=== PATIENT | female | born 1940 | race Caucasian/White ===

== ENCOUNTER → 2017-01-17 | Outpatient (CLI) | payer MEDICARE | END | disposition home or self-care (01) | LOC: LABWHC1 11:07 | PROVIDERS: ATTEND Nurse Practitioner Family | DX: I10 Essential (primary) hypertension (principal); Z86.718 Personal history of other venous thrombosis and embolism | CPT/HCPCS: 36415; 93005 ==

== ENCOUNTER → 2017-02-01 | Outpatient (CLI) | payer MEDICARE ==
--- NOTE | 2017-02-01 11:43 | US ---
EXAMINATION TYPE: US abdomen complete DATE OF EXAM: 02/01/2017 11:24 AM COMPARISON: NONE CLINICAL HISTORY: R63.0 DECREASED APPETITE, R11.11 VOMITING, R63.4 WEIGHT LOSS. GB removed years ago EXAM MEASUREMENTS: Liver Length: 15.2 cm Gallbladder Wall: Surgically absent cm CBD: 0.7 cm Spleen: 8.5 cm Right Kidney: 10.6 x 4.7 x 4.4 cm Left Kidney: 10.2 x 5.0 x 4.5 cm cm TECHNOLOGIST IMPRESSION: Pancreas: Partially Obscured by bowel gas Liver: Partially Obscured by overlying bowel gas. Visualized portions wnl Gallbladder: Surgically absent Evidence for sonographic Jameson's sign: no CBD: wnl Spleen: wnl Right Kidney: wnl Left Kidney: Tiny cyst lower pole =0.9 x 0.6 x 0.7 cm Upper IVC: wnl Abd Aorta: wnl, proximal portion partially obscured by bowel gas. The visualized liver is homogenous. The intrahepatic portion of the IVC and visualized abdominal aor ta are within normal limits. Gallbladder surgically absent. Common bile duct is unremarkable. The v isualized portions of the pancreas are homogenous. Portions of pancreas and liver are obscured by sh adowing from bowel gas and ribs. The spleen is unremarkable. Kidneys are symmetric and free of hydro nephrosis. No suspicious renal lesions are seen. There is 9 mm round anechoic lesion lower pole leve l right kidney felt to reflect simple cyst. IMPRESSION: No suspicious finding is seen to account for patient's symptoms.
== END | disposition home or self-care (01) ==
LOC: RADUSWWP 10:50
PROVIDERS: ATTEND Family Medicine
DX: R11.11 Vomiting without nausea (principal); R63.0 Anorexia; R63.4 Abnormal weight loss
CPT/HCPCS: 76700

== ENCOUNTER → 2017-02-07 | Outpatient (CLI) | payer MEDICARE ==
--- NOTE | 2017-02-07 09:43 | CT ---
EXAMINATION TYPE: CT brain wo con DATE OF EXAM: 02/07/2017 8:56 AM COMPARISON: NONE HISTORY: Weakness and confusion CT DLP: 1017.9 mGycm Automated exposure control for dose reduction was used. FINDINGS: Opacity is present within the left maxillary sinus, there may be mucus retention cyst. The orbits benjamin w symmetric appearance. Cortical atrophy is present within the brain. There is low attenuation involv ing the left greater than right frontal lobe with local mass effect on the frontal horn of the left l ateral ventricle on the left greater than right. No evident hemorrhage or hydrocephalus. Small soft t issue density incidentally noted anterior to the cathi on the left measuring approximately 1 cm steril e based and may represent a small meningioma. IMPRESSION: Findings suggestive of underlying brain tumor, possible glioma or metastatic disease, there is likely a small meningioma as described additionally. Recommend brain MRI with and without contrast, report relayed to Mayte telephonically at the time of interpretation at the [facility]
--- NOTE | 2017-02-07 11:03 | US ---
EXAMINATION TYPE: US venous doppler duplex LE BI DATE OF EXAM: 02/07/2017 9:19 AM COMPARISON: 09/29/2016 CLINICAL HISTORY: R53.1 generalized weakness/R41.0 confusion. history of DVT left pop, prior on PACS SIDE PERFORMED: Bilateral VESSELS IMAGED: External Iliac Vein (EIV) Common Femoral Vein Deep Femoral Vein Greater Saphenous Vein * Femoral Vein Popliteal Vein Proximal Calf Veins (* superficial vessels) Right Leg: Negative for DVT Left Leg: Positive for DVT, left pop through proximal calf veins, patient is on Xeralto from prior D VT. IMPRESSION: 1. Findings positive for left lower extremity DVT as discussed above. There is been resolution of the thrombus within the distal left femoral vein. 2. No evidence for a right lower extremity DVT.
== END ==
LOC: RADCTMAIN 08:25
PROVIDERS: ATTEND Family Medicine
DX: R41.0 Disorientation, unspecified (principal); I82.402 Acute embolism and thrombosis of unspecified deep veins of left lower extremity
CPT/HCPCS: 70450; 93970

== ENCOUNTER 2017-05-13 06:50 | Emergency (ER) | payer MEDICARE ==
[2017-05-13] MEDS ORDERED: DIPH,PERTUS(ACELL)TETVAC-LF 0.5 ML VIAL IM ONE (07:16)
[2017-05-13] MEDS ORDERED: SODIUM CHLORIDE 0.9% 500 ML IV STA (07:17)
[2017-05-13] MEDS ORDERED: LIDOCAINE/EPINEPHR/TETRACAINE 5 ML BOTTLE TOPICAL ONE ×2 (07:18→07:28)
--- NOTE | 2017-05-13 07:20 | ED ---
General Adult HPI - General Chief complaint: Head Injury Stated complaint: fall, head lac Time Seen by Provider: 05/13/17 07:00 Source: patient, family, RN notes reviewed Mode of arrival: wheelchair Limitations: no limitations - History of Present Illness Initial comments: This is a 77-year-old female who presents emergency Department with a past medical history significant for a brain tumor. Patient had surgery to have 90% removed and then she was receiving chemotherapy and radiation. Patient states her last treatment was on . Patient has been weak since then. Patient states this morning shortly go to the bathroom when specified when she was walking out of the bathroom her legs got weak and she fell over and struck her head. Patient is on a maxilla. Patient states she has lacerations back and her head. Patient denies any loss of consciousness or being days. Patient denies any neck pain. Patient denies any numbness weakness. Patient states she did not feel lightheaded or dizzy prior to the fall. Patient denies any palpitations chest pain or difficulty breathing. Patient denies abdominal pain patient denies nausea vomiting or diarrhea. Patient does not want her last emesis. At this point patient has no headache and no other complaints. - Related Data Home Medications Medication Instructions Recorded Confirmed Levothyroxine Sodium [Synthroid] 100 mcg PO DAILY 09/29/16 05/13/17 Omeprazole 20 mg PO DAILY 09/29/16 05/13/17 amLODIPine BESYLATE [Norvasc] 5 mg PO DAILY 09/29/16 05/13/17 Dabigatran [Pradaxa] 150 mg PO BID 05/13/17 05/13/17 Previous Rx's Medication Instructions Recorded Cephalexin [Keflex] 500 mg PO Q6HR #28 cap 05/13/17 Allergies Allergy/AdvReac Type Severity Reaction Status Date / Time No Known Allergies Allergy Verified 09/29/16 14:56 Review of Systems ROS Statement: Those systems with pertinent positive or pertinent negative responses have been documented in the HPI. ROS Other: All systems not noted in ROS Statement are negative. Past Medical History Past Medical History: Hypertension, Thyroid Disorder History of Any Multi-Drug Resistant Organisms: None Reported Past Surgical History: Cholecystectomy Additional Past Surgical History / Comment(s): thyroid removed, left ankle Past Psychological History: No Psychological Hx Reported Smoking Status: Never smoker Past Alcohol Use History: None Reported Past Drug Use History: None Reported General Exam - General Exam Comments Initial Comments: GENERAL: Patient is well-developed and well-nourished. Patient is nontoxic and well- hydrated and is in no acute distress. ENT: Neck is soft and supple. No significant lymphadenopathy is noted. Oropharynx is clear. Moist mucous membranes. Neck has full range of motion without eliciting any pain. EYES: The sclera were anicteric and conjunctiva were pink and moist. Extraocular movements were intact and pupils were equal round and reactive to light. Eyelids were unremarkable. PULMONARY: Unlabored respirations. Good breath sounds bilaterally. No audible rales rhonchi or wheezing was noted. CARDIOVASCULAR: There is a regular rate and rhythm without any murmurs gallops or rubs. ABDOMEN: Soft and nontender with normal bowel sounds. No palpable organomegaly was noted. There is no palpable pulsatile mass. SKIN: There is a 2.5 cm laceration to the left occipital region of the patient's scalp NEUROLOGIC: Patient is alert and oriented x3. Cranial nerves II through XII are grossly intact. Motor and sensory are also intact. Normal speech, volume and content. Symmetrical smile. MUSCULOSKELETAL: Normal extremities with adequate strength and full range of motion. No lower extremity swelling or edema. No calf tenderness. LYMPHATICS: No significant lymphadenopathy is noted PSYCHIATRIC: Normal psychiatric evaluation. Normal interpersonal interactions appears functionally intact in deals appropriately with others. No signs of depression. No signs of anxiety. Limitations: no limitations Course Vital Signs 05/13/17 05/13/17 06:55 08:00 Temperature 97.1 F L Pulse Rate 82 68 Respiratory 20 18 Rate Blood Pressure 137/75 139/65 O2 Sat by Pulse 93 L 97 Oximetry Procedures - Laceration Laceration #1 Consent Obtained: verbal consent Time Out Performed: Yes Indication: laceration Site: scalp Description: linear Depth: simple, single layer Type of Sutures: other ([place]) Size of Sutures: other (3) Technique: simple, interrupted Complications: pain Patient Tolerated Procedure: well Medical Decision Making - Medical Decision Making EKG shows normal sinus rhythm at 83 bpm WV interval is 126 QRS is 86 QT interval 342 QTC is 411. Patient's EKG shows no ST segment elevation or depression or T-wave abdomen is noted. - Lab Data Result diagrams: 05/13/17 07:31 05/13/17 07:31 Lab Results 05/13/17 05/13/17 05/13/17 Range/Units 07:31 07:31 07:31 WBC 11.1 H (3.8-10.6) k/uL RBC 4.49 (3.80-5.40) m/uL Hgb 14.3 (11.4-16.0) gm/dL Hct 42.5 (34.0-46.0) % MCV 94.6 (80.0-100.0) fL MCH 31.9 (25.0-35.0) pg MCHC 33.7 (31.0-37.0) g/dL RDW 18.6 H (11.5-15.5) % Plt Count 212 (150-450) k/uL Neutrophils % 80 % Lymphocytes % 11 % Monocytes % 7 % Eosinophils % 0 % Basophils % 0 % Neutrophils # 8.9 H (1.3-7.7) k/uL Lymphocytes # 1.2 (1.0-4.8) k/uL Monocytes # 0.8 (0-1.0) k/uL Eosinophils # 0.0 (0-0.7) k/uL Basophils # 0.1 (0-0.2) k/uL Anisocytosis Slight Macrocytosis Slight PT (9.0-12.0) sec INR (<1.1) APTT (22.0-30.0) sec Sodium 136 L (137-145) mmol/L Potassium 4.4 (3.5-5.1) mmol/L Chloride 107 (98-107) mmol/L Carbon Dioxide 21 L (22-30) mmol/L Anion Gap 8 mmol/L BUN 33 H (7-17) mg/dL Creatinine 0.78 (0.52-1.04) mg/dL Est GFR (MDRD) Af Amer >60 (>60 ml/min/1.73 sqM) Est GFR (MDRD) Non-Af >60 (>60 ml/min/1.73 sqM) Glucose 92 (74-99) mg/dL Calcium 9.8 (8.4-10.2) mg/dL Total Bilirubin 0.6 (0.2-1.3) mg/dL AST 23 (14-36) U/L ALT 50 (9-52) U/L Alkaline Phosphatase 49 (38-126) U/L Total Creatine Kinase <20 L (30-135) U/L CK-MB (CK-2) 1.3 (0.0-2.4) ng/mL CK-MB (CK-2) Rel Index 0.0 Troponin I <0.012 (0.000-0.034) ng/mL Total Protein 5.8 L (6.3-8.2) g/dL Albumin 3.4 L (3.5-5.0) g/dL Urine Color Urine Appearance (Clear) Urine pH (5.0-8.0) Ur Specific [place] (1.001-1.035) Urine Protein (Negative) Urine Glucose (UA) (Negative) Urine Ketones (Negative) Urine Blood (Negative) Urine Nitrite (Negative) Urine Bilirubin (Negative) Urine Urobilinogen (<2.0) mg/dL Ur Leukocyte Esterase (Negative) 05/13/17 05/13/17 Range/Units 07:31 08:29 WBC (3.8-10.6) k/uL RBC (3.80-5.40) m/uL Hgb (11.4-16.0) gm/dL Hct (34.0-46.0) % MCV (80.0-100.0) fL MCH (25.0-35.0) pg MCHC (31.0-37.0) g/dL RDW (11.5-15.5) % Plt Count (150-450) k/uL Neutrophils % % Lymphocytes % % Monocytes % % Eosinophils % % Basophils % % Neutrophils # (1.3-7.7) k/uL Lymphocytes # (1.0-4.8) k/uL Monocytes # (0-1.0) k/uL Eosinophils # (0-0.7) k/uL Basophils # (0-0.2) k/uL Anisocytosis Macrocytosis PT 11.2 (9.0-12.0) sec INR 1.1 (<1.1) APTT 26.2 (22.0-30.0) sec Sodium (137-145) mmol/L Potassium (3.5-5.1) mmol/L Chloride (98-107) mmol/L Carbon Dioxide (22-30) mmol/L Anion Gap mmol/L BUN (7-17) mg/dL Creatinine (0.52-1.04) mg/dL Est GFR (MDRD) Af Amer (>60 ml/min/1.73 sqM) Est GFR (MDRD) Non-Af (>60 ml/min/1.73 sqM) Glucose (74-99) mg/dL Calcium (8.4-10.2) mg/dL Total Bilirubin (0.2-1.3) mg/dL AST (14-36) U/L ALT (9-52) U/L Alkaline Phosphatase (38-126) U/L Total Creatine Kinase (30-135) U/L CK-MB (CK-2) (0.0-2.4) ng/mL CK-MB (CK-2) Rel Index Troponin I (0.000-0.034) ng/mL Total Protein (6.3-8.2) g/dL Albumin (3.5-5.0) g/dL Urine Color Yellow Urine Appearance Clear (Clear) Urine pH 6.5 (5.0-8.0) Ur Specific [place] 1.021 (1.001-1.035) Urine Protein Negative (Negative) Urine Glucose (UA) Negative (Negative) Urine Ketones Negative (Negative) Urine Blood Negative (Negative) Urine Nitrite Negative (Negative) Urine Bilirubin Negative (Negative) Urine Urobilinogen <2.0 (<2.0) mg/dL Ur Leukocyte Esterase Negative (Negative) Disposition Clinical Impression: Generalized weakness, Head injury, Scalp laceration Disposition: HOME SELF-CARE Instructions: Head Injury (ED) Additional Instructions: Staple should be removed after 7 days. Patient to return if there is a headache any numbness or weakness or altered mental status. Prescriptions: Cephalexin [Keflex] 500 mg PO Q6HR #28 cap Referrals: Terri Bangura MD [Primary Care Provider] - 1-2 days Time of Disposition: 08:48
[2017-05-13 07:45] LABS: Anisocytosis Slight; Basophils # (A) 0.1 k/uL (0-0.2); Basophils % (A) 0 %; CH 32.3; CHCM 34.1; Eosinophils % (A) 0 %; HCT 42.5 % (34.0-46.0); HDW 2.49; HGB 14.3 gm/dL (11.4-16.0); Luc # (Auto) 0.16; Luc % (Auto) 1; Lymphocytes # (A) 1.2 k/uL (1.0-4.8); Lymphocytes % (A) 11 %; MCH 31.9 pg (25.0-35.0); MCHC 33.7 g/dL (31.0-37.0); MCV 94.6 fL (80.0-100.0); Macrocytosis Slight; Mean Platelet Volume 7.2; Monocytes # (A) 0.8 k/uL (0-1.0); Monocytes % (A) 7 %; Neutrophils # (A) 8.9 k/uL (1.3-7.7); Neutrophils % (A) 80 %; RBC 4.49 m/uL (3.80-5.40); RDW 18.6 % (11.5-15.5); WBC 11.1 k/uL (3.8-10.6); WBC (Perox) 10.95
[2017-05-13 07:55] LABS: INR 1.1 (<1.1); Partial Thromboplastin Time 26.2 sec (22.0-30.0); Prothrombin Time 11.2 sec (9.0-12.0)
[2017-05-13 08:08] LABS: ALT 50 U/L (9-52); AST 23 U/L (14-36); Alkaline Phosphatase 49 U/L (38-126); Anion Gap 8 mmol/L; Blood Urea Nitrogen 33 mg/dL (7-17); Calcium 9.8 mg/dL (8.4-10.2); Carbon Dioxide 21 mmol/L (22-30); Chloride 107 mmol/L (98-107); Glucose 92 mg/dL (74-99); Non-African American GFR(MDRD) >60 (>60 ml/min/1.73 sqM); Potassium 4.4 mmol/L (3.5-5.1); Sodium 136 mmol/L (137-145); Total Bilirubin 0.6 mg/dL (0.2-1.3); Total Protein 5.8 g/dL (6.3-8.2)
[2017-05-13 08:14] VITALS: RESP 18
[2017-05-13 08:14] LABS: Creatine Kinase <20 U/L (30-135)
[2017-05-13 08:26] LABS: Creatine Kinase MB 1.3 ng/mL (0.0-2.4); Troponin I <0.012 ng/mL (0.000-0.034)
--- NOTE | 2017-05-13 08:33 | CT ---
EXAMINATION TYPE: CT brain christopherine wo con DATE OF EXAM: 05/13/2017 COMPARISON: 02/07/2017 HISTORY: Fall CT DLP: Head (995.5) amd C-spine (549.10) mGycm, Automated exposure control for dose reduction was us ed. CONTRAST: Patient injected with 0 mL of Omnipaque 300. CT of the brain is performed utilizing 3 mm thick sections through the posterior fossa and 3 mm thick sections through the remaining calvarium. Study is performed within 24 hours of arrival to the hospital. No abnormal hyperdensity is present to suggest an acute intracranial hemorrhage. No mass lesion is evident. No acute infarcts are evident. Periventricular white matter hypodensity is present. Findings can be compatible with microvascular ischemic change. Ventricles and sulci are appropriate for the patient age. There is communication with some encephalo malacia in the superior left lateral ventricle. This has progressed from the comparison of 02/07/2017. Prior craniotomy is along the left frontal parietal vertex. Paranasal sinuses and mastoid air cells within the [id number] are clear. IMPRESSIONS: 1. Postsurgical changes. 2. Progressive encephalomalacia from January 2017 left frontal vertex. 3. No acute intracranial process 4. Chronic microvascular ischemic type changes. CT cervical spine. COMPARISON: None CT of the cervical spine is performed in the axial plane at 2 mm thick sections. Reconstructed image s in the coronal, and sagittal plane are reviewed on the computer. No acute fractures are evident. Vertebral body alignment is normal. C6-7 degenerative disc changes are present. Some posterior endplate spurring is present. Vertebral body heights are preserved. No spinal canal stenosis is evident. Facet degenerative changes are within the lower cervical spine. IMPRESSIONS: 1. Degenerative changes cervical spine. No acute osseous abnormality evident.
[2017-05-13 08:41] LABS: Appearance,Urine Clear (Clear); Bilirubin,Urine Negative (Negative); Glucose,Urine (UA) Negative (Negative); Ketones,Urine Negative (Negative); Leukocyte Esterase,Urine Negative (Negative); Nitrite,Urine Negative (Negative); PH, Urine 6.5 (5.0-8.0); Protein,Urine Negative (Negative); Specific Gravity,Urine 1.021 (1.001-1.035); UA Billing (MACRO vs. MICRO) CHEM; Urobilinogen,Urine <2.0 mg/dL (<2.0)
[2017-05-13 08:54] VITALS: BP 127/88; PULSE 71; TEMP 97.8
== END 2017-05-13 08:58 | disposition home or self-care (01) ==
LOC: EC 06:50
DX: S01.01XA Laceration without foreign body of scalp, initial encounter (principal); S21.219A Laceration without foreign body of unspecified back wall of thorax without penetration into thoracic cavity, initial encounter; D49.6 Neoplasm of unspecified behavior of brain; R53.1 Weakness; I10 Essential (primary) hypertension; E07.9 Disorder of thyroid, unspecified; Z79.01 Long term (current) use of anticoagulants; Z79.899 Other long term (current) drug therapy; Z23 Encounter for immunization; Z98.890 Other specified postprocedural states; W17.89XA Other fall from one level to another, initial encounter; Y92.002 Bathroom of unspecified non-institutional (private) residence as the place of occurrence of the external cause; Y93.01 Activity, walking, marching and hiking
CPT/HCPCS: 12001; 36415; 70450; 72125; 80053; 81003; 82550; 82553; 84484; 85025; 85610; 85730; 90471; 90715; 93005; 96360; 99284

== ENCOUNTER 2017-07-02 21:26 | Inpatient (IN) | payer MEDICARE ==
[2017-07-02] MEDS ORDERED: HYDROcodone/APAP 5-325MG 1 EACH TAB PO STA (22:32)
--- NOTE | 2017-07-02 22:39 | ED ---
General Adult HPI - General Source: patient, family, RN notes reviewed Mode of arrival: ambulatory Limitations: no limitations <Panchito Ruth - Last Filed: 07/03/17 01:19> <Korey Mcqueen - Last Filed: 07/03/17 07:04> - General Chief complaint: Fall Stated complaint: Fall/Elbow/Shoulder Pain Time Seen by Provider: 07/02/17 22:13 - History of Present Illness Initial comments: Patient 77-year-old female who presents emergency room today with a chief complaint of a fall that occurred approximately an hour and a half ago. She does admit that she was using her walker headed towards the table when she believes she chipped over the carpet. Patient does admit that she went down onto the right side. Does admit to some pain locally to the right shoulder which is somewhat chronic but also has increased pain in the right elbow. She states that she does have also some mild pain to the right hip area. She states she felt this when she stood up. She denies any head injury or loss consciousness. She denies any other complaints or associated symptoms at this time. Denies any lightheadedness or dizziness. Patient denies any recent fever , chills, shortness of breath, chest pain, back pain, abdominal pain, nausea or vomiting, numbness or tingling, dysuria or hematuria, constipation or diarrhea, headaches or visual changes, or any other complaints. (Panchito Ruth) - Related Data Home Medications Medication Instructions Recorded Confirmed Omeprazole 20 mg PO DAILY@0730 09/29/16 07/02/17 Dabigatran [Pradaxa] 150 mg PO BID@07,199905/13/17 07/02/17 Citalopram Hydrobromide [CeleXA] 20 mg PO DAILY@1400 07/02/17 07/02/17 HYDROcodone/APAP 5-325MG [[place] 1 tab PO Q6H PRN 07/02/17 07/02/17 5-325] Levothyroxine Sodium [Synthroid] 100 mcg PO DAILY@0630 07/02/17 07/02/17 Oxybutynin Chloride 5 mg PO HS@199907/02/17 07/02/17 Allergies Allergy/AdvReac Type Severity Reaction Status Date / Time No Known Allergies Allergy Verified 07/03/17 02:52 Review of Systems ROS Other: All systems not noted in ROS Statement are negative. <Panchito Ruth - Last Filed: 07/03/17 01:19> ROS Other: All systems not noted in ROS Statement are negative. <Korey Mcqueen Sara - Last Filed: 07/03/17 07:04> ROS Statement: Those systems with pertinent positive or pertinent negative responses have been documented in the HPI. Past Medical History Past Medical History: Hypertension, Thyroid Disorder Additional Past Medical History / Comment(s): Brain CA History of Any Multi-Drug Resistant Organisms: None Reported Past Surgical History: Cholecystectomy Additional Past Surgical History / Comment(s): thyroid removed, left ankle, craniotomy Past Psychological History: No Psychological Hx Reported Smoking Status: Never smoker Past Alcohol Use History: None Reported Past Drug Use History: None Reported <Panchito Ruth - Last Filed: 07/03/17 01:19> General Exam Limitations: no limitations <Panchito Ruth - Last Filed: 07/03/17 01:19> <Korey Mcqueen Sara - Last Filed: 07/03/17 07:04> - General Exam Comments Initial Comments: General: The patient is awake and alert, in no distress, and does not appear acutely ill. Eye: Pupils are equal, round and reactive to light, extra-ocular movements are intact. No nystagmus. There is normal conjunctiva bilaterally. No signs of icterus. Ears, nose, mouth and throat: There are moist mucous membranes and no oral lesions. Neck: The neck is supple, there is no tenderness or JVD. Cardiovascular: There is a regular rate and rhythm. No murmur, rub or gallop is appreciated. Respiratory: Lungs are clear to auscultation, respirations are non-labored, breath sounds are equal. No wheezes, stridor, rales, or rhonchi. Gastrointestinal: Soft, non-distended, non-tender abdomen without masses or organomegaly noted. There is no rebound or guarding present. No CVA tenderness. Bowel sounds are unremarkable. Musculoskeletal: Patient does have tenderness to the posterior and anterior aspects of the right shoulder. Tender to palpation in the proximal humerus. Tender to palpation in the posterior aspect of the right elbow. Shows limited range of motion of these areas due to pain. No tenderness on the right wrist or hand. Patient does have normal appearance of the right lower extremity no shortening or rotation. Does have tenderness with a logroll maneuver. Sensation intact. Pulses equal bilaterally 2+. Neurological: A&O x 3. CN II-XII intact, There are no obvious motor or sensory deficits. Coordination appears grossly intact. Speech is normal. Skin: Skin is warm and dry and no rashes or lesions are noted. Psychiatric: Cooperative, appropriate mood & affect, normal judgment. (Panchito Ruth) Medical Decision Making - Lab Data Result diagrams: 07/02/17 23:35 07/02/17 23:35 <Panchito Ruth - Last Filed: 07/03/17 01:19> - Lab Data Result diagrams: 07/02/17 23:35 07/02/17 23:35 <Korey Mcqueen - Last Filed: 07/03/17 07:04> - Medical Decision Making Patient reexamined at this time. Does have proximal humerus fracture right hip fracture. Case was discussed with attending physician along with orthopedic stool except on consult would request a medicine admit due to, located history. Patient's oncologist will be consult it. (Panchito Ruth) 71 sexual female presents status post fall, likely mechanical she was walking with her walker. She has a recent history of brain cancer and is currently on chemotherapy. Patient's found to have a right humeral fracture as well as right femoral neck fracture. Case was discussed with orthopedic surgery. Patient will be admitted to internal medicine with both hematology oncology and with peak surgery on consult. (Korey Mcqueen) - Lab Data Lab Results 07/02/17 07/02/17 07/02/17 Range/Units 23:35 23:35 23:35 WBC 23.0 H (3.8-10.6) k/uL RBC 3.88 (3.80-5.40) m/uL Hgb 12.2 (11.4-16.0) gm/dL Hct 38.1 (34.0-46.0) % MCV 98.3 (80.0-100.0) fL MCH 31.5 (25.0-35.0) pg MCHC 32.1 (31.0-37.0) g/dL RDW 16.7 H (11.5-15.5) % Plt Count 220 (150-450) k/uL Neutrophils % 92 % Lymphocytes % 3 % Monocytes % 3 % Eosinophils % 1 % Basophils % 0 % Neutrophils # 21.2 H (1.3-7.7) k/uL Lymphocytes # 0.8 L (1.0-4.8) k/uL Monocytes # 0.7 (0-1.0) k/uL Eosinophils # 0.2 (0-0.7) k/uL Basophils # 0.0 (0-0.2) k/uL Poikilocytosis Slight Anisocytosis Slight Macrocytosis Slight PT 12.1 H (9.0-12.0) sec INR 1.2 H (<1.2) APTT 30.0 (22.0-30.0) sec Sodium 137 (137-145) mmol/L Potassium 3.9 (3.5-5.1) mmol/L Chloride 103 (98-107) mmol/L Carbon Dioxide 24 (22-30) mmol/L Anion Gap 10 mmol/L BUN 16 (7-17) mg/dL Creatinine 0.60 (0.52-1.04) mg/dL Est GFR (MDRD) Af Amer >60 (>60 ml/min/1.73 sqM) Est GFR (MDRD) Non-Af >60 (>60 ml/min/1.73 sqM) Glucose 212 H (74-99) mg/dL Calcium 9.9 (8.4-10.2) mg/dL Total Bilirubin 0.6 (0.2-1.3) mg/dL AST 23 (14-36) U/L ALT 38 (9-52) U/L Alkaline Phosphatase 95 (38-126) U/L Total Protein 5.7 L (6.3-8.2) g/dL Albumin 3.4 L (3.5-5.0) g/dL Disposition Time of Disposition: 01:20 <Panchito Ruth - Last Filed: 07/03/17 01:19> <Korey Mcqueen - Last Filed: 07/03/17 07:04> Clinical Impression: Hip fracture, Proximal humerus fracture Disposition: ADMITTED IP TO THIS [facility] Condition: Stable Addendum entered and electronically signed by Panchito Ruth PA-C 07/03/17 02: 11: EKG performed at 2328: A 12-lead EKG was performed and interpreted by me as showing the following: Rate is 95, and rhythm is normal sinus. There are normal QRS complexes and normal R-wave progression. ST segments have no elevation or depression, and AK segments appear normal.
[2017-07-02] MEDS ORDERED: ONDANSETRON 4 MG/2 ML VIAL IVP STA (23:37)
[2017-07-02] MEDS ORDERED: HYDROmorphone 1 MG/ML 1 ML SYRINGE IVP STA (23:37)
--- NOTE | 2017-07-02 23:38 | CT ---
EXAM: CT Head Without Intravenous Contrast CLINICAL HISTORY: Reason: Pain TECHNIQUE: Axial computed tomography images of the head/brain without intravenous contrast. CTDI is 57.40 mGy and DLP is 1029.90 mGy-cm. This CT exam was performed using one or more of the following dose reduction techniques: automated exposure control, adjustment of the mA and/or kV according to patient size, and/or use of iterative reconstruction technique. COMPARISON: 05/13/17 FINDINGS: Brain: Focal left frontal vertex encephalomalacia unchanged. No hemorrhage. Stable periventricular white matter hypodensities relating to chronic small vessel ischemic changes. No edema. Ventricles: Unremarkable. No ventriculomegaly. Bones/joints: Left frontal craniectomy with underlying postoperative change. No acute fracture. Soft tissues: Unremarkable. Sinuses: Unremarkable as visualized. No acute sinusitis. Mastoid air cells: Unremarkable as visualized. No mastoid effusion. IMPRESSION: Stable postoperative changes. No acute intracranial process.
[2017-07-02 23:44] LABS: Anisocytosis Slight; Basophils % (A) 0 %; CH 32.8; CHCM 33.5; Eosinophils # (A) 0.2 k/uL (0-0.7); Eosinophils % (A) 1 %; HCT 38.1 % (34.0-46.0); HDW 3.55; HGB 12.2 gm/dL (11.4-16.0); Luc # (Auto) 0.12; Luc % (Auto) 1; Lymphocytes # (A) 0.8 k/uL (1.0-4.8); Lymphocytes % (A) 3 %; MCH 31.5 pg (25.0-35.0); MCHC 32.1 g/dL (31.0-37.0); MCV 98.3 fL (80.0-100.0); Macrocytosis Slight; Mean Platelet Volume 7.8; Monocytes # (A) 0.7 k/uL (0-1.0); Monocytes % (A) 3 %; Neutrophils # (A) 21.2 k/uL (1.3-7.7); Neutrophils % (A) 92 %; Poikilocytosis Slight; RBC 3.88 m/uL (3.80-5.40); RDW 16.7 % (11.5-15.5); WBC (Perox) 23.41
--- NOTE | 2017-07-02 23:47 | XR ---
EXAM: XR Right Shoulder Complete, 2 or More Views CLINICAL HISTORY: Reason: Pain TECHNIQUE: Two or more views of the right shoulder. COMPARISON: No relevant prior studies available. FINDINGS: Bones/joints: Comminuted impacted fracture of the humeral neck with involvement of the greater and lesser tuberosities. Diffuse osteopenia. Acromioclavicular joint is intact. Glenoid is intact. No dislocation. Soft tissues: Unremarkable. IMPRESSION: Comminuted impacted fracture of the right humeral neck with involvement of the greater and lesser tuberosities.
--- NOTE | 2017-07-02 23:48 | XR ---
EXAM: XR Right Elbow Complete, 3 or More Views CLINICAL HISTORY: Reason: Pain TECHNIQUE: Frontal, lateral and oblique views of the right elbow. COMPARISON: No relevant prior studies available. FINDINGS: Bones/joints: Unremarkable. No acute fracture. No dislocation. Soft tissues: Unremarkable. IMPRESSION: Normal right elbow x-rays.
--- NOTE | 2017-07-02 23:51 | XR ---
EXAM: XR Right Hip With Pelvis When Performed, 2 or 3 Views CLINICAL HISTORY: Reason: Pain TECHNIQUE: Two or three views of the right hip, with pelvis when performed. COMPARISON: No relevant prior studies available. FINDINGS: Bones/joints: Nondisplaced fracture of the right femoral neck. Sclerosis noted in the pubic symphysis, likely degenerative osteitis pubis. No dislocation. Soft tissues: Unremarkable. IMPRESSION: Nondisplaced fracture of the right femoral neck.
[2017-07-02 23:53] LABS: INR 1.2 (<1.2); Prothrombin Time 12.1 sec (9.0-12.0)
--- NOTE | 2017-07-02 23:53 | XR ---
EXAM: XR Chest, 1 View CLINICAL HISTORY: Reason: FALL. PAIN. TECHNIQUE: Frontal view of the chest. COMPARISON: No relevant prior studies available. FINDINGS: Lungs: Unremarkable. No consolidation. Pleural space: Unremarkable. No pneumothorax. Heart: Mild cardiomegaly. Retrocardiac density may represent a hiatus hernia or left atrial enlargement. Mediastinum: Unremarkable. Bones/joints: Comminuted impacted fracture of the right humeral neck. IMPRESSION: No acute findings. Retrocardiac density may represent a hiatus hernia or left atrial enlargement.
[2017-07-03 00:03] LABS: ALT 38 U/L (9-52); AST 23 U/L (14-36); Alkaline Phosphatase 95 U/L (38-126); Anion Gap 10 mmol/L; Blood Urea Nitrogen 16 mg/dL (7-17); Calcium 9.9 mg/dL (8.4-10.2); Carbon Dioxide 24 mmol/L (22-30); Chloride 103 mmol/L (98-107); Glucose 212 mg/dL (74-99); Non-African American GFR(MDRD) >60 (>60 ml/min/1.73 sqM); Potassium 3.9 mmol/L (3.5-5.1); Sodium 137 mmol/L (137-145); Total Bilirubin 0.6 mg/dL (0.2-1.3); Total Protein 5.7 g/dL (6.3-8.2)
[2017-07-03] MEDS ORDERED: ONDANSETRON 4 MG/2 ML VIAL IVP PRN (01:20)
[2017-07-03] MEDS ORDERED: NALOXONE 0.4 MG/ML 1 ML VIAL IV PRN (01:20)
[2017-07-03] MEDS ORDERED: SODIUM CHLORIDE 0.9% 1,000 ML IV SCH (02:15)
[2017-07-03] MEDS ORDERED: HYDROmorphone 1 MG/ML 1 ML SYRINGE IM PRN (03:33)
[2017-07-03] MEDS: SODIUM CHLORIDE 0.9% 1,000 ML IV SCH ×2 (03:46→16:02)
[2017-07-03] MEDS ORDERED: HYDROmorphone 1 MG/ML 1 ML SYRINGE IVP PRN (03:50)
[2017-07-03] MEDS: LEVOTHYROXINE 100 MCG TAB PO SCH (09:50)
[2017-07-03] MEDS: PANTOPRAZOLE 40 MG TABLET PO SCH (10:09)
--- NOTE | 2017-07-03 10:35 | P.CNOR ---
History of Present Illness - [facility] Consult date: 07/03/17 Requesting physician: Hector Jameson Consult reason: fracture History of present illness: Patient is a pleasant 77 -year-old female seen at bedside this morning. She was admitted to the emergency department last evening after a fall at home. She had failed to her right side and subsequently developed right arm pain and right hip pain. She has been treated for known neuro glioblastoma. She's had chronic weakness on the right side. X-rays through the emergency department showed a right proximal humerus fracture along with a minimally displaced right femoral neck fracture. We are consulted for further recommendations. She has pain at the fracture sites as expected. She denies any other new complaints. Review of Systems All systems: negative Constitutional: Denies chills, Denies fever Eyes: denies blurred vision, denies pain Ears, nose, mouth and throat: Denies headache, Denies sore throat Cardiovascular: Denies chest pain, Denies shortness of breath Respiratory: Denies cough Gastrointestinal: Denies abdominal pain, Denies diarrhea, Denies nausea, Denies vomiting Genitourinary: Denies dysuria, Denies hematuria Musculoskeletal: Denies myalgias Integumentary: Denies pruritus, Denies rash Neurological: Denies numbness, Denies weakness Psychiatric: Denies anxiety, Denies depression Endocrine: Denies fatigue, Denies weight change Past Medical History Past Medical History: Deep Vein Thrombosis (DVT), Hypertension, Thyroid Disorder Additional Past Medical History / Comment(s): Brain CA, DVT behind the knee History of Any Multi-Drug Resistant Organisms: None Reported Past Surgical History: Cholecystectomy Additional Past Surgical History / Comment(s): thyroid removed, left ankle, craniotomy Past Anesthesia/Blood Transfusion Reactions: Postoperative Nausea & Vomiting ( PONV) Past Psychological History: No Psychological Hx Reported Smoking Status: Never smoker Past Alcohol Use History: None Reported Past Drug Use History: None Reported - Past Family History Mother Family Medical History: No Reported History Father Family Medical History: No Reported History Medications and Allergies Home Medications Medication Instructions Recorded Confirmed Type Omeprazole 20 mg PO DAILY@0730 09/29/16 07/02/17 History Dabigatran [Pradaxa] 150 mg PO BID@0730,199905/13/17 07/02/17 History Citalopram Hydrobromide [CeleXA] 20 mg PO DAILY@1400 07/02/17 07/02/17 History HYDROcodone/APAP 5-325MG [[place] 1 tab PO Q6H PRN 07/02/17 07/02/17 History 5-325] Levothyroxine Sodium [Synthroid] 100 mcg PO DAILY@0630 07/02/17 07/02/17 History Oxybutynin Chloride 5 mg PO HS@2000 07/02/17 07/02/17 History Allergies Allergy/AdvReac Type Severity Reaction Status Date / Time No Known Allergies Allergy Verified 07/03/17 02:52 Physical Examination Examination of right shoulder and upper extremity is benign. There is no open wounds or lacerations. There is mild ecchymoses. Range of motion of shoulders not tested due to the fracture. Motor and sensation is grossly intact throughout the right upper extremity. 2+ radial pulses present and less than 2 second cap refill is present. Sewing Department Supervisor strength is normal. Examination of right lower extremity is benign with no open wounds or lacerations. There is no erythema. Range of motion of the right hip is not tested due to the fracture. Motor and sensation is grossly intact throughout the right lower extremity however she has a chronic residual weakness. 2+ dorsalis pedis pulses present and less than 2 second cap refill is present. Calf is soft and nontender. There is no evidence of ulcerations or open wounds throughout the right lower extremity. Results X-rays of the right shoulder show a mild displaced proximal humerus fracture with acceptable angulation and displacement. X-rays of the right hip and pelvis show minimally displaced right femoral neck fracture. - Labs Labs: Abnormal Lab Results - Last 24 Hours (Table) 07/02/17 07/02/17 07/02/17 Range/Units 23:35 23:35 23:35 WBC 23.0 H (3.8-10.6) k/uL RDW 16.7 H (11.5-15.5) % Neutrophils # 21.2 H (1.3-7.7) k/uL Lymphocytes # 0.8 L (1.0-4.8) k/uL PT 12.1 H (9.0-12.0) sec INR 1.2 H (<1.2) Glucose 212 H (74-99) mg/dL Total Protein 5.7 L (6.3-8.2) g/dL Albumin 3.4 L (3.5-5.0) g/dL H & H 07/02/17 Range/Units 23:35 Hgb 12.2 (11.4-16.0) gm/dL Hct 38.1 (34.0-46.0) % Coagulation 07/02/17 Range/Units 23:35 INR 1.2 H (<1.2) Result Diagrams: 07/02/17 23:35 07/02/17 23:35 - Diagnostic results Shoulder x-ray: report reviewed, image reviewed Hip x-ray: report reviewed, image reviewed Assessment and Plan (1) Hip fracture Narrative/Plan: In regards to her right proximal humerus fracture she is to remain in sling. She is nonweightbearing to the right upper extremity. No surgical intervention is planned for her right proximal humerus fracture. In regards to her right hip fracture, plan is to tentatively proceed with surgical intervention tomorrow 07/04/2017 around noon which would include a right hip hemiarthroplasty. We will request medical clearance from her admitting medical doctor and oncologist. She is nothing by mouth after midnight and the procedure has been scheduled. Status: Acute (2) Proximal humerus fracture Status: Acute Time with Patient: Less than 30
[2017-07-03] MEDS: HYDROcodone/APAP 5-325MG 1 EACH TAB PO PRN ×3 (12:05→20:31)
--- NOTE | 2017-07-03 13:16 | P.HPIM ---
History of Present Illness H&P Date: 07/03/17 Chief Complaint: Fall This is a 77-year-old female with history of glioblastoma multiform a status post surgical resection thereafter radiation thereafter currently on chemotherapy with Temodar. Patient is noted to have a mild deficit on the right side from the above-stated condition. 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 Patient was brought to the hospital after sustaining a fall as patient is sitting on a chair and fell on the floor patient was noted to have a comminuted fracture of the right humerus and fracture of the right femoral neck. Today patient denies having any complaints however patient is minimally verbal patient's daughter was at bedside and answered multiple questions At baseline patient is able to ambulate with her deficits Apparently patient was noted to have control disease in regards to her glioblastoma. Patient does have a history of DVT in the past. Review of Systems All systems: negative (Noted in HPI) Past Medical History Past Medical History: Deep Vein Thrombosis (DVT), Hypertension, Thyroid Disorder Additional Past Medical History / Comment(s): Brain CA, DVT behind the knee History of Any Multi-Drug Resistant Organisms: None Reported Past Surgical History: Cholecystectomy Additional Past Surgical History / Comment(s): thyroid removed, left ankle, craniotomy Past Anesthesia/Blood Transfusion Reactions: Postoperative Nausea & Vomiting ( PONV) Past Psychological History: No Psychological Hx Reported Smoking Status: Never smoker Past Alcohol Use History: None Reported Past Drug Use History: None Reported - Past Family History Mother Family Medical History: No Reported History Father Family Medical History: No Reported History Medications and Allergies Home Medications Medication Instructions Recorded Confirmed Type Omeprazole 20 mg PO DAILY@0730 09/29/16 07/02/17 History Dabigatran [Pradaxa] 150 mg PO BID@0730,199905/13/17 07/02/17 History Citalopram Hydrobromide [CeleXA] 20 mg PO DAILY@1400 07/02/17 07/02/17 History HYDROcodone/APAP 5-325MG [[place] 1 tab PO Q6H PRN 07/02/17 07/02/17 History 5-325] Levothyroxine Sodium [Synthroid] 100 mcg PO DAILY@0630 07/02/17 07/02/17 History Oxybutynin Chloride 5 mg PO HS@199907/02/17 07/02/17 History Allergies Allergy/AdvReac Type Severity Reaction Status Date / Time No Known Allergies Allergy Verified 07/03/17 02:52 Physical Exam Vitals: Vital Signs Temp Pulse Pulse Resp BP BP Pulse Ox 07/03/17 07:00 98.1 F 99 16 151/71 93 L 07/03/17 02:31 98.0 F 110 H 16 150/70 94 L 07/03/17 02:12 97.9 F 70 18 145/70 99 07/02/17 23:46 70 16 128/70 99 07/02/17 22:47 97.7 F 66 18 167/77 94 L 07/02/17 21:29 99 F 102 H 22 149/71 86 L Intake and Output 07/02/17 07/03/17 07/03/17 22:59 06:59 14:59 Intake Total 300 Balance 300 Intake: Intake, IV Titration 300 Amount Sodium Chloride 0.9% 1, 300 000 ml @ 100 mls/hr IV . Q10H [facility] Rx#:[id number] Other: Voiding Method Indwelling Catheter Weight 84.368 kg Gen. appearance alert however does not answer many questions. Lungs diminished breath sounds however air movement is appreciated no rhonchi wheezing or crackles Heart S1-S2 heard slightly tachycardic no murmurs appreciated Abdomen is soft nontender no organomegaly Lower extremities no edema noted Musculoskeletal on the right side there is weakness noted on the right lower extremity however difficult to assess due to pain right upper extremity in a brace due to the recent fracture however appears to have a chronic contracture Pupils equal round reactive there is a lid lag on the right side. Results CBC & Chem 7: 07/02/17 23:35 07/02/17 23:35 Labs: Abnormal Lab Results - Last 24 Hours (Table) 07/02/17 07/02/17 07/02/17 Range/Units 23:35 23:35 23:35 WBC 23.0 H (3.8-10.6) k/uL RDW 16.7 H (11.5-15.5) % Neutrophils # 21.2 H (1.3-7.7) k/uL Lymphocytes # 0.8 L (1.0-4.8) k/uL PT 12.1 H (9.0-12.0) sec INR 1.2 H (<1.2) Glucose 212 H (74-99) mg/dL Total Protein 5.7 L (6.3-8.2) g/dL Albumin 3.4 L (3.5-5.0) g/dL Thrombosis Risk Factor Assmnt - Choose All That Apply Each Risk Factor Represents 3 Points: Age 75 years or older, History of DVT/PE Thrombosis Risk Factor Assessment Total Risk Factor Score: 6 Thrombosis Risk Factor Assessment Level: High Risk Assessment and Plan Plan: #1 right femoral neck fracture #2 right humeral fracture #3 GBM #4 history of DVT #5 leukocytosis this is likely reactive Plan A UA should be done. As patient does not answer many questions to ensure there is no underlying cystitis EKG in the emergency room which was read as no ST-T wave elevations no conduction delays. Due to the nature of the condition and the urgent nature of proceeding with procedure patient is clear for surgery no further workup is necessary did discuss the risks and benefits with the patient's family I did discuss for rehab ability due to the fracture on the right upper extremity , and discussed the possibility of patient decompensating and getting deconditioned hereafter. However the procedures done patient will be restarted on pradaxa for thereafter will attempt sending the patient to a subacute rehab facility.
--- NOTE | 2017-07-03 16:13 | P.CONS ---
History of Present Illness - Reason for Consult Consult date: 07/03/17 on treatment for glioblastoma, needing orthopedic surgery Requesting physician: Panchito Ruth - Chief Complaint fall with pain - History of Present Illness Ms. Champion is a very pleasant female pt of PCP Dr. Bangura who presented in January 2017 with c/o with progressive confusion, family reported personality changes, unusual headaches and nausea, MRI 02/08/2017 revealed enhancing posterior left frontal cavity lesion, pt had resection by Dr. Yañez at [facility] on 02/19/2017, pathology revealed glioblastoma multiform. Pt was seen by Dr. Gonzales and it was recommended for her to have external beam radiation with concurrent with Temodar, followed by 12 months of adjuvant Temodar. Pt completed concurrent chemo/XRT 05/10 and she completed her 1st 5 day cycle of adjuvant treatment on 06/12, she would be due to start cycle 2 next week. Notes from chart were reviewed as pt is not able to tell me about what happened , pt is not very vocal at baseline. She did say no to nausea, hunger, need to go to the bathroom and pain. Review of Systems ROS unobtainable: due to mental status Past Medical History Past Medical History: Cancer, Deep Vein Thrombosis (DVT), Hypertension, Thyroid Disorder Additional Past Medical History / Comment(s): treated glioblastoma, DVT behind the knee History of Any Multi-Drug Resistant Organisms: None Reported Past Surgical History: Cholecystectomy Additional Past Surgical History / Comment(s): thyroid removed, left ankle, craniotomy Past Anesthesia/Blood Transfusion Reactions: Postoperative Nausea & Vomiting ( PONV) Past Psychological History: No Psychological Hx Reported Smoking Status: Never smoker Past Alcohol Use History: None Reported Past Drug Use History: None Reported - Past Family History Mother Family Medical History: No Reported History Father Family Medical History: No Reported History Medications and Allergies Home Medications Medication Instructions Recorded Confirmed Type Omeprazole 20 mg PO DAILY@0730 09/29/16 07/02/17 History Dabigatran [Pradaxa] 150 mg PO BID@0730,199905/13/17 07/02/17 History Citalopram Hydrobromide [CeleXA] 20 mg PO DAILY@1400 07/02/17 07/02/17 History HYDROcodone/APAP 5-325MG [[place] 1 tab PO Q6H PRN 07/02/17 07/02/17 History 5-325] Levothyroxine Sodium [Synthroid] 100 mcg PO DAILY@0630 07/02/17 07/02/17 History Oxybutynin Chloride 5 mg PO HS@199907/02/17 07/02/17 History Allergies Allergy/AdvReac Type Severity Reaction Status Date / Time No Known Allergies Allergy Verified 07/03/17 02:52 Physical Exam Vitals: Vital Signs Temp Pulse Pulse Resp BP BP Pulse Ox 07/03/17 14:49 98.4 F 72 16 140/80 95 07/03/17 07:00 98.1 F 99 16 151/71 93 L 07/03/17 02:31 98.0 F 110 H 16 150/70 94 L 07/03/17 02:12 97.9 F 70 18 145/70 99 07/02/17 23:46 70 16 128/70 99 07/02/17 22:47 97.7 F 66 18 167/77 94 L 07/02/17 21:29 99 F 102 H 22 149/71 86 L Intake and Output 07/03/17 07/03/17 07/03/17 06:59 14:59 22:59 Intake Total 300 800 Balance 300 800 Intake: Intake, IV Titration 300 800 Amount Sodium Chloride 0.9% 1, 300 800 000 ml @ 100 mls/hr IV . Q10H [facility] Rx#:[id number] Other: Voiding Method Indwelling Catheter Indwelling Catheter - Constitutional General appearance: average body habitus, cooperative, no acute distress - EENT mydrasis, 4mm ENT: normal oropharynx - Neck Neck: no lymphadenopathy - Respiratory Respiratory: bilateral: rhonchi (expiratory) - Cardiovascular Rhythm: regular Heart sounds: normal: S1, S2 leg Peripheral Edema: bilateral: Trace - Gastrointestinal General gastrointestinal: no absent bowel sounds, no decreased bowel sounds, no distended, no hepatomegaly, no hyperactive bowel sounds, normal bowel sounds, no organomegaly, no rigid, no scaphoid, soft, no splenomegaly, no tenderness, no umbilical hernia, no ventral hernia - Integumentary Integumentary: normal - Neurologic pt gives yes/no answers but does not answer all questions, she follows with her eyes, generalized weakness - Psychiatric she is alert Psychiatric: no appropriate affect, no intact judgment & insight Results CBC & Chem 7: 07/02/17 23:35 07/02/17 23:35 Labs: Abnormal Lab Results - Last 24 Hours (Table) 07/02/17 07/02/17 07/02/17 Range/Units 23:35 23:35 23:35 WBC 23.0 H (3.8-10.6) k/uL RDW 16.7 H (11.5-15.5) % Neutrophils # 21.2 H (1.3-7.7) k/uL Lymphocytes # 0.8 L (1.0-4.8) k/uL PT 12.1 H (9.0-12.0) sec INR 1.2 H (<1.2) Glucose 212 H (74-99) mg/dL Total Protein 5.7 L (6.3-8.2) g/dL Albumin 3.4 L (3.5-5.0) g/dL Comments: multiple xray reports reviewed CT Scan - head: report reviewed Assessment and Plan (1) Glioblastoma Narrative/Plan: Pt is currently receiving oral temodar for 5 days once a month for maintenance after resection and adjuvant chemo/XRT for glioblastoma. She is due next week for her 2nd 5 day cycle. WIll delay cycle until pt has had the opportunity to recover from surgery. She will be re-evaluated prior to resuming treatment. Status: Chronic Plan: Pt is ok form a Hem/Onc standpoint to have Orthopedic surgery for her femoral neck fracture
[2017-07-03 16:17] LABS: Appearance,Urine Cloudy (Clear); Bilirubin,Urine Negative (Negative); Calcium Oxalate Crystals,Urine Rare /hpf; Glucose,Urine (UA) Negative (Negative); Ketones,Urine Negative (Negative); Leukocyte Esterase,Urine Large (Negative); Mucus,Urine Few /hpf; Nitrite,Urine Negative (Negative); Particle Count 3157; Protein,Urine Negative (Negative); RBC,Urine 83 /hpf (0-5); Specific Gravity,Urine 1.012 (1.001-1.035); Squamous Epithelial Cell,Urine <1 /hpf (0-4); UA Billing (MACRO vs. MICRO) MICRO; Urobilinogen,Urine <2.0 mg/dL (<2.0); WBC,Urine 90 /hpf (0-5)
[2017-07-04] MEDS: HYDROcodone/APAP 5-325MG 1 EACH TAB PO PRN ×4 (00:35→17:31)
[2017-07-04] MEDS: SODIUM CHLORIDE 0.9% 1,000 ML IV SCH ×2 (03:29→10:24)
[2017-07-04] MEDS: LEVOTHYROXINE 100 MCG TAB PO SCH (05:37)
[2017-07-04 07:24] LABS: Anisocytosis Slight; Basophils % (A) 0 %; CH 32.6; CHCM 32.5; Eosinophils # (A) 0.1 k/uL (0-0.7); Eosinophils % (A) 0 %; HDW 3.48; HGB 10.8 gm/dL (11.4-16.0); Hypochromasia Slight; Luc # (Auto) 0.19; Luc % (Auto) 1; Lymphocytes % (A) 7 %; MCH 30.9 pg (25.0-35.0); MCHC 30.7 g/dL (31.0-37.0); MCV 100.6 fL (80.0-100.0); Macrocytosis Slight; Mean Platelet Volume 8.6; Monocytes % (A) 7 %; Neutrophils # (A) 12.5 k/uL (1.3-7.7); Neutrophils % (A) 84 %; Poikilocytosis Slight; RBC 3.48 m/uL (3.80-5.40); RDW 16.4 % (11.5-15.5); WBC 14.8 k/uL (3.8-10.6); WBC (Perox) 15.21
[2017-07-04 07:54] LABS: ALT 27 U/L (9-52); AST 20 U/L (14-36); Alkaline Phosphatase 75 U/L (38-126); Anion Gap 5 mmol/L; Blood Urea Nitrogen 7 mg/dL (7-17); Calcium 9.1 mg/dL (8.4-10.2); Carbon Dioxide 27 mmol/L (22-30); Chloride 105 mmol/L (98-107); Glucose 126 mg/dL (74-99); Non-African American GFR(MDRD) >60 (>60 ml/min/1.73 sqM); Potassium 4.4 mmol/L (3.5-5.1); Sodium 137 mmol/L (137-145); Total Bilirubin 0.4 mg/dL (0.2-1.3); Total Protein 4.7 g/dL (6.3-8.2)
[2017-07-04] MEDS: traMADol 50 MG TAB PO SCH ×4 (08:21→21:57)
[2017-07-04] MEDS: PANTOPRAZOLE 40 MG TABLET PO SCH (08:22)
[2017-07-04] MEDS ORDERED: traMADol 50 MG TAB PO SCH (09:00)
--- NOTE | 2017-07-04 09:24 | P.PN ---
Subjective Principal diagnosis: Right femoral neck fracture, right proximal humerus fracture Patient is pleasant 77-year-old female seen at bedside this morning. She is pending undergoing surgical intervention for right femoral neck fracture. She has no new complaints today. She has sling in place for right proximal humerus fracture which there is no surgical intervention planned for. Pain appears to be controlled. She denies new numbness, tingling, calf pain, fever, chills, chest pain, shortness of breath or other. Objective - Vital Signs Vital signs: Vital Signs Temp 98.1 F 07/04/17 08:00 Pulse 78 07/04/17 08:00 Resp 18 07/04/17 08:00 BP 135/72 07/04/17 08:00 Pulse Ox 95 07/04/17 08:00 Intake & Output 07/03/17 07/04/17 07/04/17 18:59 06:59 18:59 Intake Total 800 1350 Balance 800 1350 Intake: Intake, IV Titration 800 1100 Amount Sodium Chloride 0.9% 1, 800 1100 000 ml @ 100 mls/hr IV . Q10H [facility] Rx#:[id number] Oral 250 Other: Voiding Method Indwelling Catheter Indwelling Catheter - Exam Right upper and lower extremity are benign to inspection. There is no active wounds or bleeding. There is no erythema. Range of motion of the right shoulder is not tested due to the fracture. Geriatric Nurse Practitioner strength is intact. Motor and sensation is grossly intact throughout the right upper extremity. 2+ radial pulses present as well as less than 2 second cap refill. Right lower extremity hip is not tested due to fracture. Sensation to light touch is intact throughout. Calf is soft and nontender. 2+ dorsalis pedis pulses present and less than 2 second cap refill is present. She has active motor at the knee, ankle and foot and toes. - Constitutional General appearance: Present: no acute distress - Psychiatric Psychiatric: Present: A&O x's 3, appropriate affect, intact judgment & insight - Labs CBC & Chem 7: 07/04/17 06:30 07/04/17 06:30 Labs: Abnormal Lab Results - Last 24 Hours (Table) 07/03/17 07/04/17 07/04/17 Range/Units 16:00 06:30 06:30 WBC 14.8 H (3.8-10.6) k/uL RBC 3.48 L (3.80-5.40) m/uL Hgb 10.8 L (11.4-16.0) gm/dL MCV 100.6 H (80.0-100.0) fL MCHC 30.7 L (31.0-37.0) g/dL RDW 16.4 H (11.5-15.5) % Neutrophils # 12.5 H (1.3-7.7) k/uL Creatinine 0.50 L (0.52-1.04) mg/dL Glucose 126 H (74-99) mg/dL Total Protein 4.7 L (6.3-8.2) g/dL Albumin 2.6 L (3.5-5.0) g/dL Urine Appearance Cloudy H (Clear) Urine Blood Moderate H (Negative) Ur Leukocyte Esterase Large H (Negative) Urine RBC 83 H (0-5) /hpf Urine WBC 90 H (0-5) /hpf Calcium Oxalate Crystal Rare H (None) /hpf Hyaline Casts 9 H (0-2) /lpf Urine Mucus Few H (None) /hpf Microbiology - Last 24 Hours (Table) 07/03/17 16:00 Urine Culture - Preliminary Urine,Catheterized Assessment and Plan (1) Hip fracture Narrative/Plan: In regards to her right proximal humerus fracture she is to remain in sling. She is nonweightbearing to the right upper extremity. No surgical intervention is planned for her right proximal humerus fracture. In regards to her right hip fracture, plan is to proceed with surgical intervention tomorrow 07/05/2017 which will include a right hip hemiarthroplasty. She has been cleared for surgery by medicine. She is nothing by mouth after midnight and the procedure has been scheduled. Status: Acute (2) Proximal humerus fracture Status: Acute Time with Patient: Less than 30
--- NOTE | 2017-07-04 14:35 | P.PN ---
Subjective This is a 77-year-old female with history of glioblastoma multiform a status post surgical resection thereafter radiation thereafter currently on chemotherapy with Temodar. Patient is noted to have a mild deficit on the right side from the above-stated condition. 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 Patient was brought to the hospital after sustaining a fall as patient is sitting on a chair and fell on the floor patient was noted to have a comminuted fracture of the right humerus and fracture of the right femoral neck. Today patient denies having any complaints however patient is minimally verbal patient's daughter was at bedside and answered multiple questions At baseline patient is able to ambulate with her deficits Apparently patient was noted to have control disease in regards to her glioblastoma. Patient does have a history of DVT in the past. 07/04/17 no new overnight events pt again is minimally verbal Gen. appearance alert however does not answer many questions. Lungs diminished breath sounds however air movement is appreciated no rhonchi wheezing or crackles Heart S1-S2 heard slightly tachycardic no murmurs appreciated Abdomen is soft nontender no organomegaly Lower extremities no edema noted Musculoskeletal on the right side there is weakness noted on the right lower extremity however difficult to assess due to pain right upper extremity in a brace due to the recent fracture however appears to have a chronic contracture Pupils equal round reactive there is a lid lag on the right side. Objective - Vital Signs Vital signs: Vital Signs Temp 98.1 F 07/04/17 08:00 Pulse 72 07/04/17 08:00 Resp 18 07/04/17 08:00 BP 135/72 07/04/17 08:00 Pulse Ox 95 07/04/17 08:00 Intake & Output 07/03/17 07/04/17 07/04/17 18:59 06:59 18:59 Intake Total 800 1350 Balance 800 1350 Weight 84.368 kg Intake: Intake, IV Titration 800 1100 Amount Sodium Chloride 0.9% 1, 800 1100 000 ml @ 100 mls/hr IV . Q10H [facility] Rx#:[id number] Oral 250 Other: Voiding Method Indwelling Catheter Indwelling Catheter Indwelling Catheter - Labs CBC & Chem 7: 07/04/17 06:30 07/04/17 06:30 Labs: Abnormal Lab Results - Last 24 Hours (Table) 07/03/17 07/04/17 07/04/17 Range/Units 16:00 06:30 06:30 WBC 14.8 H (3.8-10.6) k/uL RBC 3.48 L (3.80-5.40) m/uL Hgb 10.8 L (11.4-16.0) gm/dL MCV 100.6 H (80.0-100.0) fL MCHC 30.7 L (31.0-37.0) g/dL RDW 16.4 H (11.5-15.5) % Neutrophils # 12.5 H (1.3-7.7) k/uL Creatinine 0.50 L (0.52-1.04) mg/dL Glucose 126 H (74-99) mg/dL Total Protein 4.7 L (6.3-8.2) g/dL Albumin 2.6 L (3.5-5.0) g/dL Urine Appearance Cloudy H (Clear) Urine Blood Moderate H (Negative) Ur Leukocyte Esterase Large H (Negative) Urine RBC 83 H (0-5) /hpf Urine WBC 90 H (0-5) /hpf Calcium Oxalate Crystal Rare H (None) /hpf Hyaline Casts 9 H (0-2) /lpf Urine Mucus Few H (None) /hpf Microbiology - Last 24 Hours (Table) 07/03/17 16:00 Urine Culture - Preliminary Urine,Catheterized Assessment and Plan Plan: #1 right femoral neck fracture #2 right humeral fracture #3 GBM #4 history of DVT #5Acute cystitis Plan await surgery abnormal UA on rocephin, as pt is non reliable EKG in the emergency room which was read as no ST-T wave elevations no conduction delays. Due to the nature of the condition and the urgent nature of proceeding with procedure patient is clear for surgery no further workup is necessary did discuss the risks and benefits with the patient's family
[2017-07-05] MEDS: LEVOTHYROXINE 100 MCG TAB PO SCH (04:33)
[2017-07-05] MEDS: HYDROcodone/APAP 5-325MG 1 EACH TAB PO PRN ×2 (04:33→11:35)
[2017-07-05] MEDS: PANTOPRAZOLE 40 MG TABLET PO SCH (08:00)
[2017-07-05] MEDS: traMADol 50 MG TAB PO SCH ×3 (08:24→21:46)
[2017-07-05 10:10] VITALS: BMI 34.0
--- NOTE | 2017-07-05 12:31 | CDI ---
In responding to this query, please exercise your independent professional judgment. The [facility] Coding Staff and Clinical Documentation Specialists appreciate your assistance in clarifying documentation, maintaining compliance with coding guidelines, accurately documenting patients condition and capturing severity of illness. The fact that a question is asked does not imply that any particular answer is desired or expected. Communication forms are a method of clarifying documentation and are not made part of the Legal Health Record. Thank you in advance for your clarification. Last Revision, September 2015 Cat [address] [facility] [place] [address] Documentation Clarification Form Date: 07/05/2017 12:11:00 PM From: Yvonne Ding RN, CDS Admit Date: 07/03/2017 1:44:00 AM Patient Name: Kristin Champion Visit Number: [id number] Esperanza LINDSEY/Dr. Huber Guillermo, 77 year old female presents for Right femoral neck and Right humerus fracture from fall. Acute Cystitis documented in progress note 07/04. History/Risk Factors: HTN, Glioblastoma Multiform with resection, DVT, Clinical Indicators: VS: 99.0 102 22 149/71 86raa 94/3L WBC 23, UA Large leuk mary, Mod blood, 90wbc, UA/CX-no growth after 18 hours Treatment: IV Rocephin, Please document the condition that these clinical indicators signify, whether Present on Admission, and cause if known: UTI, present on admission Acute cystitis Unable to determine Other Please document in your progress notes and discharge summary in order to capture severity of illness and risk of mortality. Include clinical findings that support your diagnosis. FYI: Press F11 to launch patient chart. Thank you. CRISTY
[2017-07-05] MEDS ORDERED: LACTATED RINGERS 1,000 ML IV ONE (13:50)
[2017-07-05] MEDS ORDERED: DEXAMETHASONE SOD PHOSPHATE 10 MG/ML 1 ML VIAL IV ONE (14:34)
[2017-07-05] MEDS ORDERED: ONDANSETRON 4 MG/2 ML VIAL IVP ONE (14:34)
--- NOTE | 2017-07-05 14:40 | P.PN ---
Subjective This is a 77-year-old female with history of glioblastoma multiform a status post surgical resection thereafter radiation thereafter currently on chemotherapy with Temodar. Patient is noted to have a mild deficit on the right side from the above-stated condition. 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 Patient was brought to the hospital after sustaining a fall as patient is sitting on a chair and fell on the floor patient was noted to have a comminuted fracture of the right humerus and fracture of the right femoral neck. Today patient denies having any complaints however patient is minimally verbal patient's daughter was at bedside and answered multiple questions At baseline patient is able to ambulate with her deficits Apparently patient was noted to have control disease in regards to her glioblastoma. Patient does have a history of DVT in the past. 07/04/17 no new overnight events pt again is minimally verbal 07/05/17 No new overnight events Gen. appearance alert however does not answer many questions. Lungs diminished breath sounds however air movement is appreciated no rhonchi wheezing or crackles Heart S1-S2 heard slightly tachycardic no murmurs appreciated Abdomen is soft nontender no organomegaly Lower extremities no edema noted Musculoskeletal on the right side there is weakness noted on the right lower extremity however difficult to assess due to pain right upper extremity in a brace due to the recent fracture however appears to have a chronic contracture Pupils equal round reactive there is a lid lag on the right side. Objective - Vital Signs Vital signs: Vital Signs Temp 98.1 F 07/05/17 13:46 Pulse 93 07/05/17 13:46 Resp 16 07/05/17 13:46 BP 166/77 07/05/17 13:46 Pulse Ox 93 L 07/05/17 13:46 Intake & Output 07/04/17 07/05/17 07/05/17 18:59 06:59 18:59 Intake Total 1000 1155 Output Total 500 Balance 1000 1155 -500 Weight 84.368 kg 84.368 kg Intake: Intake, IV Titration 700 955 Amount Sodium Chloride 0.9% 1, 600 955 000 ml @ 100 mls/hr IV . Q10H [facility] Rx#:[id number] cefTRIAXone 1,000 mg In 100 Sodium Chloride 0.9% 50 ml @ 100 mls/hr IVPB Q24HR [facility] Rx#:[id number] Oral 300 200 Output: Urine 500 Stool 0 Other: Voiding Method Indwelling Catheter Indwelling Catheter Indwelling Catheter # Voids 3 3 - Labs CBC & Chem 7: 07/04/17 06:30 07/04/17 06:30 Labs: Microbiology - Last 24 Hours (Table) 07/03/17 16:00 Urine Culture - Final Urine,Catheterized Assessment and Plan Plan: #1 right femoral neck fracture #2 right humeral fracture #3 GBM #4 history of DVT #5Acute cystitis Plan await surgery abnormal UA on rocephin, as pt is non reliable EKG in the emergency room which was read as no ST-T wave elevations no conduction delays. PT/OT surgery today
[2017-07-05] MEDS ORDERED: SUCCINYLCHOLINE CHLORIDE 100 MG/5 ML SYR IV ONE (16:01)
[2017-07-05] MEDS ORDERED: KETAMINE 10 MG/ML 20 ML VIAL ONE (16:01)
[2017-07-05] MEDS ORDERED: fentaNYL (PF) 50 MCG/ML 2 ML AMP ONE (16:01)
[2017-07-05] MEDS ORDERED: MIDAZOLAM 2 MG/2 ML VIAL ONE (16:01)
[2017-07-05] MEDS ORDERED: SODIUM CHLORIDE 0.9% 100 ML with ceFAZolin 2,000 MG IV ONE ×2 (16:20)
[2017-07-05] MEDS ORDERED: ceFAZolin 3,000 MG in SODIUM CHLORIDE 0.9% IRRIGATIO 3,000 ML IRRIGATION ONE (16:20)
[2017-07-05] MEDS ORDERED: NALOXONE 0.4 MG/ML 1 ML VIAL IV PRN (17:38)
[2017-07-05] MEDS ORDERED: HYDROcodone/APAP 5-325MG 1 EACH TAB PO PRN (17:38)
[2017-07-05] MEDS ORDERED: TEMAZEPAM 15 MG CAP PO PRN (17:38)
[2017-07-05] MEDS ORDERED: MORPHINE SULFATE 2 MG/ML SYRINGE IV PRN ×4 (17:38)
[2017-07-05] MEDS ORDERED: DIAZEPAM 5 MG TAB PO PRN (17:38)
[2017-07-05] MEDS ORDERED: MAGNESIUM HYDROXIDE 2,400 MG/10 ML CUP PO PRN (17:38)
[2017-07-05] MEDS ORDERED: hydrOXYzine PAMOATE 25 MG CAP PO PRN (17:38)
[2017-07-05] MEDS ORDERED: ACETAMINOPHEN TAB 325 MG TAB PO PRN (17:38)
--- NOTE | 2017-07-05 18:02 | XR ---
EXAMINATION TYPE: XR Hip Limited RT DATE OF EXAM: 07/05/2017 CLINICAL HISTORY: Postoperative evaluation TECHNIQUE: Single portable view of the right hip was submitted. FINDINGS: Noted are changes of right hip arthroplasty with femoral component appearing well seated. Alignment is anatomic. Postsurgical soft tissue changes are evident. IMPRESSION: Satisfactory postoperative alignment
[2017-07-05] MEDS: SODIUM CHLORIDE 0.9% 1,000 ML IV SCH (18:44)
[2017-07-05] MEDS: SENNOSIDES-DOCUSATE SODIUM 1 EACH TAB PO SCH (21:46)
[2017-07-06] MEDS: ceFAZolin 2 GM in SODIUM CHLORIDE 0.9% 100 ML IVPB SCH ×2 (00:37→09:39)
[2017-07-06] MEDS: SODIUM CHLORIDE 0.9% 1,000 ML IV SCH ×5 (00:41→22:52)
[2017-07-06] MEDS: LEVOTHYROXINE 100 MCG TAB PO SCH (06:02)
[2017-07-06 07:34] LABS: INR 1.1 (<1.2); Prothrombin Time 10.7 sec (9.0-12.0)
[2017-07-06] MEDS: traMADol 50 MG TAB PO SCH ×4 (07:38→22:40)
[2017-07-06] MEDS: PANTOPRAZOLE 40 MG TABLET PO SCH (07:38)
[2017-07-06 07:55] LABS: Basophils % (A) 0 %; CH 31.1; Eosinophils % (A) 0 %; HCT 28.9 % (34.0-46.0); HDW 3.62; HGB 9.5 gm/dL (11.4-16.0); Hypochromasia Moderate; Luc # (Auto) 0.31; Luc % (Auto) 2; Lymphocytes % (A) 7 %; MCHC 32.8 g/dL (31.0-37.0); MCV 97.3 fL (80.0-100.0); Monocytes # (A) 1.1 k/uL (0-1.0); Monocytes % (A) 7 %; Neutrophils # (A) 12.9 k/uL (1.3-7.7); Neutrophils % (A) 84 %; Poikilocytosis Slight; RBC 2.97 m/uL (3.80-5.40); RDW 15.6 % (11.5-15.5); WBC 15.4 k/uL (3.8-10.6); WBC (Perox) 16.24
--- NOTE | 2017-07-06 10:03 | P.PN ---
Subjective Principal diagnosis: Right femoral neck fracture, right proximal humerus fracture Patient is pleasant 77-year-old female seen at bedside this morning. She is postop day #1 from right hip hemiarthroplasty for right femoral neck fracture. She has no new complaints today. She has sling in place for right proximal humerus fracture which there is no surgical intervention planned for. Pain appears to be controlled. She denies new numbness, tingling, calf pain, fever, chills, chest pain, shortness of breath or other. Objective - Vital Signs Vital signs: Vital Signs Temp 97.4 F L 07/06/17 07:34 Pulse 89 07/06/17 07:34 Resp 16 07/06/17 07:34 BP 131/63 07/06/17 07:34 Pulse Ox 96 07/06/17 07:34 Intake & Output 07/05/17 07/06/17 07/06/17 18:59 06:59 18:59 Intake Total 1151 800 Output Total 1350 700 Balance -199 800 -700 Weight 84.368 kg Intake: IV 1151 800 Sodium Chloride 0.9% 1, 800 000 ml @ 100 mls/hr IV . Q10H [facility] Rx#:[id number] Output: Urine 1050 700 Stool 0 Estimated Blood Loss 300 Other: Voiding Method Indwelling Catheter Indwelling Catheter Indwelling Catheter # Voids 3 - Exam Right upper and lower extremity are benign to inspection. There is no active wounds or bleeding to the right upper extremity. There is no erythema. Range of motion of the right shoulder is not tested due to the fracture. Fishing Vessel Captain strength is intact. Motor and sensation is grossly intact throughout the right upper extremity. 2+ radial pulses present as well as less than 2 second cap refill. Right lower extremity is benign to inspection. Surgical wound is benign. There is no active bleeding or drainage.. Sensation to light touch is intact throughout. Calf is soft and nontender. 2+ dorsalis pedis pulses present and less than 2 second cap refill is present. She has active motor at the knee, ankle and foot and toes. - Constitutional General appearance: Present: no acute distress - Psychiatric Psychiatric: Present: appropriate affect, intact judgment & insight - Labs CBC & Chem 7: 07/06/17 07:14 07/04/17 06:30 Labs: Abnormal Lab Results - Last 24 Hours (Table) 08/25/17 Range/Units 07:14 WBC 15.4 H (3.8-10.6) k/uL RBC 2.97 L (3.80-5.40) m/uL Hgb 9.5 L (11.4-16.0) gm/dL Hct 28.9 L (34.0-46.0) % RDW 15.6 H (11.5-15.5) % Neutrophils # 12.9 H (1.3-7.7) k/uL Monocytes # 1.1 H (0-1.0) k/uL Assessment and Plan (1) Hip fracture Narrative/Plan: In regards to her right proximal humerus fracture she is to remain in sling. She is nonweightbearing to the right upper extremity. No surgical intervention is planned for her right proximal humerus fracture. In regards to her right hip she is weightbearing as tolerated. Continue routine postop orthopedic protocol including pain management, wound care, physical therapy, DVT prophylaxis and medical management. Expect that she will transfer to rehab in the next 1-2 days. Status: Acute (2) Proximal humerus fracture Status: Acute Time with Patient: Less than 30
[2017-07-06] MEDS: HYDROcodone/APAP 5-325MG 1 EACH TAB PO PRN (11:20)
[2017-07-06] MEDS: MULTIVITAMINS, THERA 1 EACH TAB PO SCH (13:07)
--- NOTE | 2017-07-06 17:11 | OP ---
DATE OF PROCEDURE: 07/05/2017 PREOPERATIVE DIAGNOSIS: Right displaced femoral neck fracture. POSTOPERATIVE DIAGNOSIS: Right displaced femoral neck fracture. OPERATION: Right hip hemiarthroplasty. SURGEON: Hector Jameson MD SECURITY INSTALLER: Kevan Vásquez PA-C ANESTHESIA: General endotracheal. ESTIMATED BLOOD LOSS: 300 mL DRAINS: None. COMPLICATIONS: None apparent. DISPOSITION: Postanesthesia care unit. INDICATIONS: Kristin is a very pleasant 77-year-old female who fell on the evening of July 03 on her right side. She was brought to [facility] via ambulance. She was found to have a comminuted proximal humerus fracture as well as displaced right femoral neck fracture. She was admitted to the medical service due to multiple medical comorbidities most of which include the fact that she is currently being treated with chemotherapy for brain cancer. She is an independent ambulator. Her daughters were at the bedside when we spoke of the procedure. They do wish to proceed forward with operative intervention. The risks of the procedure were discussed with Kristin and her daughters in detail. These risks include but are not limited to the risk of infection, nerve damage, bleeding, pain, and small risk of deep vein thrombosis, which could lead to fatal pulmonary embolism. Further risks include increased risk for infection secondary to her currently being treated with chemotherapy for her brain cancer. She is also high risk for further falls as well. All of her and her daughters questions were answered to their satisfaction and appropriate informed consent was obtained. DESCRIPTION OF THE PROCEDURE: The patient identified in the preoperative holding area. The surgical site was marked by both the patient and myself. She was given 2 grams of Ancef IV for prophylactic purposes. She was then transferred to the operative suite where she was placed supine on the operative table. General anesthetic was then administered and dosed per the Anesthesia Department without apparent complication. She was then placed into the left lateral decubitus position, well padded in preparation for surgery. A well padded axillary roll was placed. Her legs were appropriately padded as well. Her right lower extremity was then prepped and draped in the usual sterile fashion. Standard surgical pause was then undertaken to ensure that we are operating on the correct site and that appropriate preoperative antibiotics were given. All staff in the room were in agreement and we proceeded. The outlines of the greater trochanter were marked with surgical pen. Planned 10 to 12 cm incision centered over the tip of the greater trochanter in line with the femoral shaft was then made. The incision was then made with a 10 blade scalpel. Dissection was carried down sharply to the tensor fascia. Hemostasis was achieved with electrocautery. The tensor fascia was then incised in line with the skin incision. Charnley retractor was then placed. This exposed the underlying gluteus medius musculature as well as the trochanteric bursa. The trochanter bursa was sharply excised. The raphe between the anterior one-third and middle one-third of the gluteus medius muscle was identified. This was then incised with the electrocautery. I then took the gluteus medius, gluteus minimus and the hips capsule off in a sleeve anteriorly. This is a Knight type anterolateral approach. The fracture was readily identified. I then utilized the guide to demarcate a femoral neck cut. I then performed a femoral neck cut with reciprocating saw. I then removed the ugashik femoral head with a corkscrew. This was then measured on the back table. It was measured to be 48 mm. A 48 mm trial was placed onto the lollypop. This was then placed in the acetabulum. It had excellent fit and good suction. The acetabulum was then inspected. The cartilage was in good condition. There were no loose bodies noted within the acetabulum. The hip was then flexed and externally rotated in front of the body. I then utilized a gambling box person to gain access to the femoral canal. I then utilized a starter reamer. I then reamed the femoral canal starting with a 7 mm reamer and incrementally increasing up to a 10 mm reamer. A good chatter was achieved at 10 mm. I then broached the proximal femur. I started with size 7 broach and incrementally broached up to a 10 mm broach. Each broach was placed in approximately 10 to 15 degrees of anteversion. The size 10 broach had excellent fit. It was very stable. I then proceeded with trialing. I started with a -3 neck and 48 head. The hip was reduced. It was a little bit loose. I then increased it to a standard neck and a 48 mm head. This was very stable. There was minimal shuck. The hip was stable throughout full range of motion. The hip was then very carefully re-dislocated. The trial components were removed. I had the practice representative open a Biomet Bimetric size 10 collared stem, a 48 mm monopolar head and standard neck. The stem was then inserted in approximately 10 to 15 mm anteversion. The neck and head were then placed onto the Berkowitz taper of the neck and impacted into place. The hip was then carefully reduced and again taken through full range of motion. It was very stable and there was minimal shuck. At this point we proceeded with closure. The wound was thoroughly irrigated with sterile saline solution with antibiotic added. The gluteus medius minimus and the capsule were repaired to the greater trochanter with #5 Ethibond transosseous sutures. These were interrupted sutures. The raphe between the anterior one-third and middle one-third of the gluteus medius muscle was repaired with 0 Vicryl interrupted suture. The wound was again thoroughly irrigated with sterile saline solution with antibiotic added. The tensor facia was then closed with running #3 Quill suture. The subcutaneous tissues was closed with 2-0 Vicryl interrupted suture. The skin was closed with running 3-0 Monocryl suture. Dermabond was then applied to the incision. Sterile compressive dressings were applied. The patients lower extremities were placed into a hip abduction pillow. All sponge and needle counts were deemed correct prior to closure. The patient tolerated the procedure without apparent complications. She was transferred to recovery room in stable condition. CRISTY
[2017-07-06] MEDS: DABIGATRAN 150 MG CAP PO SCH (20:19)
[2017-07-06] MEDS: SENNOSIDES-DOCUSATE SODIUM 1 EACH TAB PO SCH (20:19)
[2017-07-06] MEDS ORDERED: ASPIRIN 325 MG TAB PO SCH (21:00)
[2017-07-07] MEDS: HYDROcodone/APAP 5-325MG 1 EACH TAB PO PRN (01:05)
[2017-07-07] MEDS: LEVOTHYROXINE 100 MCG TAB PO SCH (06:28)
[2017-07-07 07:54] LABS: INR 1.1 (<1.2); Prothrombin Time 11.1 sec (9.0-12.0)
[2017-07-07] MEDS: DABIGATRAN 150 MG CAP PO SCH ×2 (08:41→21:18)
[2017-07-07] MEDS: MULTIVITAMINS, THERA 1 EACH TAB PO SCH (08:42)
[2017-07-07] MEDS: traMADol 50 MG TAB PO SCH ×4 (08:42→21:18)
[2017-07-07] MEDS: PANTOPRAZOLE 40 MG TABLET PO SCH (08:42)
[2017-07-07 10:35] LABS: Anion Gap 5 mmol/L; Blood Urea Nitrogen 11 mg/dL (7-17); Calcium 9.2 mg/dL (8.4-10.2); Carbon Dioxide 31 mmol/L (22-30); Chloride 103 mmol/L (98-107); Glucose 88 mg/dL (74-99); Non-African American GFR(MDRD) >60 (>60 ml/min/1.73 sqM); Potassium 4.1 mmol/L (3.5-5.1); Sodium 139 mmol/L (137-145)
[2017-07-07 10:37] LABS: Basophils % (A) 0 %; CHCM 31.6; Eosinophils # (A) 0.1 k/uL (0-0.7); Eosinophils % (A) 1 %; HCT 28.9 % (34.0-46.0); HDW 3.48; HGB 9.5 gm/dL (11.4-16.0); Hypochromasia Moderate; Luc # (Auto) 0.22; Luc % (Auto) 2; Lymphocytes # (A) 1.1 k/uL (1.0-4.8); Lymphocytes % (A) 9 %; MCH 32.2 pg (25.0-35.0); MCHC 32.8 g/dL (31.0-37.0); MCV 98.4 fL (80.0-100.0); Mean Platelet Volume 9.3; Monocytes # (A) 1.3 k/uL (0-1.0); Monocytes % (A) 10 %; Neutrophils # (A) 9.8 k/uL (1.3-7.7); Neutrophils % (A) 79 %; Poikilocytosis Slight; RBC 2.94 m/uL (3.80-5.40); RDW 15.6 % (11.5-15.5); WBC 12.4 k/uL (3.8-10.6); WBC (Perox) 12.75
[2017-07-07] MEDS: CEFUROXIME 250 MG TAB PO SCH (12:03)
--- NOTE | 2017-07-07 12:36 | P.PN ---
Progress Note - Text Patient is a pleasant 77-year-old female who is seen and examined at the bedside for follow-up evaluation following status post right hip hemiarthroplasty for right femoral neck fracture performed on 07/05/2017. She also currently has a right proximal humerus fracture. Patient does have a history of glioblastoma multiform was status post surgical resection with radiation and currently undergoing chemotherapy. She does have known right- sided deficit following this condition. She answer some questions appropriately but does not respond other questions. Patient states she has not been out of bed or work with physical therapy. She does continue to have some pain at the right hip. Her pain has been well-controlled for her right proximal humerus fracture. Her right upper extremity is currently placed in a sling. Patient continues to be seen by medicine for further evaluation and treatment. After further discussion with medicine, patient may be transferred to rehabilitation facility as early as today, 07/07/2017. Physical Exam Hip Hemiarthroplasty: Status post surgical day number 2 Patient is examined in bed Patient is arousable but has difficulty with continued conversation; she is able to answer some questions appropriately but does not respond others Vital signs stable Good chest excursion with deep inspiration and expiration Abdomen soft nontender No signs or symptoms of DVT; no calf pain Lower extremity cuffs in place bilaterally Abductor pillow intact Dressing of the right hip is clean, dry, and intact; no erythema, purulence, or signs of infection Dorsiflexion, plantarflexion, and extensor hallucis longus positive sustained bilaterally but movements are significantly slow Neurovascularly intact bilateral lower extremities Capillary refill less than 2 seconds bilateral lower extremities Right upper extremity currently placed in a sling Evidence of some generalized swelling and bruising over the right humerus Patient is able to wiggle fingers of the right hand movements are slow Neurovascularly intact right upper extremity Significant pain with palpation of the right elbow or fingers of the right hand Some pain with palpation over the right shoulder Assessment: Status post right hip hemiarthroplasty for right femoral neck fracture Right proximal humerus fracture Urinary tract infection History of glioblastoma multiform status post surgical resection Plan: 1. Patient may continue to weight-bear as tolerated on the lower extremity; patient may work with physical therapy to increase mobility and ambulation. She should keep dressing over the right hip clean, dry, and intact. She may shower in 72 hours if dressing remains clean and dry. 2. Continue pain control 3. Abductor pillow to remain in place at all times except while working with therapy 4. Continue with conservative treatment regards to her right proximal humerus fracture. She should continue to keep sling intact. She'll continue be nonweightbearing on the right upper extremity. 5. Medicine to continue following the patient for their other medical issues 6. Continue with with anticoagulation therapy with Pradaxa per medicine 7. We'll continue to follow the patient 8. Per medicine, patient may be clear for discharge to rehabilitation facility as early as today, 07/07/2017 9. At this time, patient is clear for discharge from an orthopedic standpoint. Patient will plan to follow-up with Dr. Hector Jameson at [facility] in 2-3 weeks following discharge
[2017-07-07] MEDS: SODIUM CHLORIDE 0.9% 1,000 ML IV SCH ×2 (13:37→17:54)
[2017-07-07] MEDS: SENNOSIDES-DOCUSATE SODIUM 1 EACH TAB PO SCH (21:18)
[2017-07-08] MEDS: CEFUROXIME 250 MG TAB PO SCH ×2 (08:04→08:13)
[2017-07-08] MEDS: LEVOTHYROXINE 100 MCG TAB PO SCH (08:04)
[2017-07-08] MEDS: SODIUM CHLORIDE 0.9% 1,000 ML IV SCH ×2 (08:04→14:49)
[2017-07-08] MEDS: traMADol 50 MG TAB PO SCH ×4 (08:12→22:19)
[2017-07-08] MEDS: DABIGATRAN 150 MG CAP PO SCH ×2 (08:13→22:19)
[2017-07-08] MEDS: PANTOPRAZOLE 40 MG TABLET PO SCH (08:13)
[2017-07-08] MEDS: MULTIVITAMINS, THERA 1 EACH TAB PO SCH (08:13)
[2017-07-08 08:45] LABS: Anisocytosis Slight; Basophils # (A) 0.1 k/uL (0-0.2); Basophils % (A) 0 %; CH 31.6; CHCM 31.6; Eosinophils # (A) 0.1 k/uL (0-0.7); Eosinophils % (A) 1 %; HDW 3.33; HGB 10.6 gm/dL (11.4-16.0); Hypochromasia Slight; Luc # (Auto) 0.34; Luc % (Auto) 2; Lymphocytes # (A) 1.3 k/uL (1.0-4.8); Lymphocytes % (A) 9 %; MCH 32.2 pg (25.0-35.0); MCHC 32.2 g/dL (31.0-37.0); MCV 100.1 fL (80.0-100.0); Macrocytosis Slight; Mean Platelet Volume 8.4; Monocytes # (A) 0.9 k/uL (0-1.0); Monocytes % (A) 7 %; Neutrophils # (A) 11.8 k/uL (1.3-7.7); Neutrophils % (A) 82 %; WBC 14.5 k/uL (3.8-10.6)
[2017-07-08 09:02] LABS: INR 1.2 (<1.2); Prothrombin Time 11.5 sec (9.0-12.0)
--- NOTE | 2017-07-08 10:52 | P.PN ---
Progress Note - Text Patient is a pleasant 77-year-old female who is seen and examined at the bedside for follow-up evaluation following status post right hip hemiarthroplasty for right femoral neck fracture performed on 07/05/2017. She also currently has a right proximal humerus fracture. Patient does have a history of glioblastoma multiform was status post surgical resection with radiation and currently undergoing chemotherapy. She does have known right- sided deficit following this condition. She has not had significant change since being seen examined yesterday. She answer some questions appropriately but does not respond other questions. She is currently sitting in a bedside chair. She does continue to have some pain at the right hip. Her pain has been well-controlled for her right proximal humerus fracture. Her right upper extremity is currently placed in a sling. Patient continues to be seen by medicine for further evaluation and treatment. Physical Exam Hip Hemiarthroplasty: Status post surgical day number 3 Patient is examined in sitting in a bedside chair Patient is awake and alert but has difficulty with continued conversation; she is able to answer some questions appropriately but does not respond others Vital signs stable Good chest excursion with deep inspiration and expiration Abdomen soft nontender No signs or symptoms of DVT; no calf pain Lower extremity cuffs in place bilaterally Abductor pillow not currently intact Dressing of the right hip is clean, dry, and intact; no erythema, purulence, or signs of infection Dorsiflexion, plantarflexion, and extensor hallucis longus positive sustained bilaterally but movements are significantly slow Neurovascularly intact bilateral lower extremities Capillary refill less than 2 seconds bilateral lower extremities Right upper extremity currently placed in a sling Evidence of some generalized swelling and bruising over the right humerus Patient is able to wiggle fingers of the right hand movements are slow Neurovascularly intact right upper extremity Significant pain with palpation of the right elbow or fingers of the right hand Some pain with palpation over the right shoulder Assessment: Status post right hip hemiarthroplasty for right femoral neck fracture Right proximal humerus fracture Urinary tract infection History of glioblastoma multiform status post surgical resection Plan: 1. Patient may continue to weight-bear as tolerated on the lower extremity; patient may work with physical therapy to increase mobility and ambulation. She should keep dressing over the right hip clean, dry, and intact. She may shower in 48 hours if dressing remains clean and dry. 2. Continue pain control 3. Abductor pillow to remain in place at all times except while working with therapy and while sitting in a bedside chair 4. Continue with conservative treatment regards to her right proximal humerus fracture. She should continue to keep sling intact. She'll continue be nonweightbearing on the right upper extremity. 5. Medicine to continue following the patient for their other medical issues 6. Continue with with anticoagulation therapy with Pradaxa per medicine 7. We'll continue to follow the patient 8. Per medicine, patient will most likely remain in the hospital with plans to discharge to a rehabilitation facility early as tomorrow, [phone] 9. At this time, patient is clear for discharge from an orthopedic standpoint. Patient will plan to follow-up with Dr. Hector Jameson at [facility] in 2-3 weeks following discharge
[2017-07-08] MEDS: traMADol 50 MG TAB PO PRN (13:47)
--- NOTE | 2017-07-08 15:42 | P.PN ---
Subjective Progress note being dictated for Dr. Garica. Interval history:This is a 77-year-old female with history of glioblastoma multiform a status post surgical resection thereafter radiation thereafter currently on chemotherapy with Temodar. Patient is noted to have a mild deficit on the right side from the above-stated condition. 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 Patient was brought to the hospital after sustaining a fall as patient is sitting on a chair and fell on the floor patient was noted to have a comminuted fracture of the right humerus and fracture of the right femoral neck. Today patient denies having any complaints however patient is minimally verbal patient's daughter was at bedside and answered multiple questions At baseline patient is able to ambulate with her deficits Apparently patient was noted to have control disease in regards to her glioblastoma. Patient does have a history of DVT in the past. 07/04/17 no new overnight events pt again is minimally verbal 07/05/17 No new overnight events 07/06/2017 right hip hemiarthroplasty secondary to right femoral neck fracture , postop day #1, no surgical intervention for right proximal humerus fracture- in sling, pain control improving. No new overnight events. Denies chest pain, palpitations or increasing shortness of breath. Objective - Vital Signs Vital signs: Vital Signs Temp 98.6 F 07/06/17 15:33 Pulse 77 07/06/17 15:33 Resp 16 07/06/17 07:34 BP 99/50 07/06/17 15:33 Pulse Ox 98 07/06/17 15:33 Intake & Output 07/06/17 07/06/17 07/07/17 06:59 18:59 06:59 Intake Total 800 300 Output Total 700 Balance 800 -400 Weight 84.368 kg Intake: IV 800 300 Sodium Chloride 0.9% 1, 800 300 000 ml @ 100 mls/hr IV . Q10H [facility] Rx#:[id number] Output: Urine 700 Other: Voiding Method Indwelling Catheter Indwelling Catheter - Exam Gen. appearance alert, minimally conversive, A and O 2-3 Pupils equal round reactive there is a lid lag on the right side. Respiratory effort normal ,Lungs diminished ,no rhonchi,wheezing or crackles Heart S1-S2 heard, occasional tachycardic, no murmurs, rubs, or gallops appreciated Abdomen is soft nontender no organomegaly Lower extremities no edema noted Musculoskeletal on the right side there is weakness noted on the right lower extremity however difficult to assess due to pain right upper extremity in a brace due to the recent fracture however appears to have a chronic contracture, right arm in sling, fingers warm Microbiology 07/03/17 16:00 Urine,Catheterized Urine Culture - Final - Labs CBC & Chem 7: 07/08/17 08:08 07/07/17 06:36 Labs: Abnormal Lab Results - Last 24 Hours (Table) 07/06/17 Range/Units 07:14 WBC 15.4 H (3.8-10.6) k/uL RBC 2.97 L (3.80-5.40) m/uL Hgb 9.5 L (11.4-16.0) gm/dL Hct 28.9 L (34.0-46.0) % RDW 15.6 H (11.5-15.5) % Neutrophils # 12.9 H (1.3-7.7) k/uL Monocytes # 1.1 H (0-1.0) k/uL Assessment and Plan Plan: #1 right femoral neck fracture #2 right humeral fracture #3 GBM #4 history of DVT #5Acute cystitis Plan: Continue on current medication regime ,monitoring and symptomatic treatment. Maintain empiric Rocephin for potential acute UTI, though culture currently reporting negative.PT/OT . Discharge planning in progress for subacute rehab on Sunday, as patient is a pre-CERT. The impression and plan of care has been dictated as directed. : I performed a H&P examination of this patient and discussed the same with the dictator. I agree with the dictator's note. Any additional findings/opinions/ etc. will be noted.
--- NOTE | 2017-07-08 15:47 | P.PN ---
Subjective Progress note being dictated for Dr. Oshea Interval history:This is a 77-year-old female with history of glioblastoma multiform a status post surgical resection thereafter radiation thereafter currently on chemotherapy with Temodar. Patient is noted to have a mild deficit on the right side from the above-stated condition. 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 Patient was brought to the hospital after sustaining a fall as patient is sitting on a chair and fell on the floor patient was noted to have a comminuted fracture of the right humerus and fracture of the right femoral neck. Today patient denies having any complaints however patient is minimally verbal patient's daughter was at bedside and answered multiple questions At baseline patient is able to ambulate with her deficits Apparently patient was noted to have control disease in regards to her glioblastoma. Patient does have a history of DVT in the past. 07/04/17 no new overnight events pt again is minimally verbal 07/05/17 No new overnight events 07/06/2017 right hip hemiarthroplasty secondary to right femoral neck fracture , postop day #1, no surgical intervention for right proximal humerus fracture- in sling, pain control improving. No new overnight events. Denies chest pain, palpitations or increasing shortness of breath. 07/07/17 no new overnight events. Pain controlled. Afebrile. Hemoglobin 9.5 Objective - Vital Signs Vital signs: Vital Signs Temp 98.4 F 07/07/17 14:42 Pulse 111 H 07/07/17 14:42 Resp 16 07/07/17 14:42 BP 121/73 07/07/17 14:42 Pulse Ox 93 L 07/07/17 14:42 Intake & Output 07/07/17 07/07/17 07/08/17 06:59 18:59 06:59 Intake Total 200 2670 Output Total 800 800 Balance -600 1870 Intake: IV 1000 Sodium Chloride 0.9% 1, 1000 000 ml @ 100 mls/hr IV . Q10H [facility] Rx#:[id number] Intake, IV Titration 1000 Amount ceFAZolin 2 gm In Sodium 1000 Chloride 0.9% 100 ml @ 100 mls/hr IVPB Q8HR [facility] Rx#:[id number] Oral 200 670 Output: Urine 800 800 Uretheral (Agrawal) 400 Stool 0 Other: Voiding Method Indwelling Catheter Indwelling Catheter # Voids 3 - Exam Gen. appearance alert, minimally conversive, A and O 2-3 Pupils equal round reactive there is a lid lag on the right side. Respiratory effort normal ,Lungs diminished ,no rhonchi,wheezing or crackles Heart S1-S2 heard, occasional tachycardic, no murmurs, rubs, or gallops appreciated Abdomen is soft nontender no organomegaly Lower extremities no edema noted Musculoskeletal unchanged: on the right side there is weakness noted on the right lower extremity however difficult to assess due to pain right upper extremity in a brace due to the recent fracture however appears to have a chronic contracture, right arm in sling, fingers warm Microbiology 07/03/17 16:00 Urine,Catheterized Urine Culture - Final - Labs CBC & Chem 7: 07/08/17 08:08 07/07/17 06:36 Labs: Abnormal Lab Results - Last 24 Hours (Table) 07/07/17 07/07/17 Range/Units 06:36 06:36 WBC 12.4 H (3.8-10.6) k/uL RBC 2.94 L (3.80-5.40) m/uL Hgb 9.5 L (11.4-16.0) gm/dL Hct 28.9 L (34.0-46.0) % RDW 15.6 H (11.5-15.5) % Neutrophils # 9.8 H (1.3-7.7) k/uL Monocytes # 1.3 H (0-1.0) k/uL Carbon Dioxide 31 H (22-30) mmol/L Assessment and Plan Plan: #1 right femoral neck fracture #2 right humeral fracture #3 GBM #4 history of DVT #5Acute cystitis Plan: Continue on current medication regime ,monitoring and symptomatic treatment. PT/OT . Discharge planning in progress for subacute rehab on Sunday , as per orthopedics. Further recommendations to follow. The impression and plan of care has been dictated as directed. : I performed a H&P examination of this patient and discussed the same with the dictator. I agree with the dictator's note. Any additional findings/opinions/ etc. will be noted.
--- NOTE | 2017-07-08 15:51 | P.PN ---
Subjective Progress note being dictated for Dr. Oshea Interval history:This is a 77-year-old female with history of glioblastoma multiform a status post surgical resection thereafter radiation thereafter currently on chemotherapy with Temodar. Patient is noted to have a mild deficit on the right side from the above-stated condition. 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 Patient was brought to the hospital after sustaining a fall as patient is sitting on a chair and fell on the floor patient was noted to have a comminuted fracture of the right humerus and fracture of the right femoral neck. Today patient denies having any complaints however patient is minimally verbal patient's daughter was at bedside and answered multiple questions At baseline patient is able to ambulate with her deficits Apparently patient was noted to have control disease in regards to her glioblastoma. Patient does have a history of DVT in the past. 07/04/17 no new overnight events pt again is minimally verbal 07/05/17 No new overnight events 07/06/2017 right hip hemiarthroplasty secondary to right femoral neck fracture , postop day #1, no surgical intervention for right proximal humerus fracture- in sling, pain control improving. No new overnight events. Denies chest pain, palpitations or increasing shortness of breath. 07/07/17 no new overnight events. Pain controlled. Afebrile. Hemoglobin 9.5 07/08/17 pain controlled, up in chair, pain controlled. Good diet intake. Passing flatus, no BM. Afebrile. Objective - Vital Signs Vital signs: Vital Signs Temp 97.9 F 07/08/17 08:00 Pulse 98 07/08/17 08:00 Resp 17 07/08/17 08:00 BP 126/80 07/08/17 08:00 Pulse Ox 96 07/08/17 08:00 Intake & Output 07/07/17 07/08/17 07/08/17 18:59 06:59 18:59 Intake Total 2670 1140 Output Total 800 800 0 Balance 1870 340 0 Intake: IV 1000 Sodium Chloride 0.9% 1, 1000 000 ml @ 100 mls/hr IV . Q10H [facility] Rx#:[id number] Intake, IV Titration 1000 Amount ceFAZolin 2 gm In Sodium 1000 Chloride 0.9% 100 ml @ 100 mls/hr IVPB Q8HR [facility] Rx#:[id number] Oral 670 1140 Output: Urine 800 800 Uretheral (Agrawal) 400 Stool 0 0 Other: Voiding Method Indwelling Catheter Indwelling Catheter Indwelling Catheter # Voids 3 3 - Exam Gen. appearance alert, sitting up in chair, minimally conversive, A and O 2-3 Pupils equal round reactive there is a lid lag on the right side. Respiratory effort normal ,Lungs diminished ,no rhonchi,wheezing or crackles Heart S1-S2 heard, occasional tachycardic, no murmurs, rubs, or gallops appreciated Abdomen is soft nontender no organomegaly Lower extremities no edema noted Musculoskeletal unchanged: on the right side there is weakness noted on the right lower extremity however difficult to assess due to pain right upper extremity in a brace due to the recent fracture however appears to have a chronic contracture, right arm in sling, fingers warm Microbiology 07/03/17 16:00 Urine,Catheterized Urine Culture - Final - Labs CBC & Chem 7: 07/08/17 08:08 07/07/17 06:36 Labs: Abnormal Lab Results - Last 24 Hours (Table) 07/08/17 07/08/17 Range/Units 08:08 08:08 WBC 14.5 H (3.8-10.6) k/uL RBC 3.30 L (3.80-5.40) m/uL Hgb 10.6 L (11.4-16.0) gm/dL Hct 33.0 L (34.0-46.0) % MCV 100.1 H (80.0-100.0) fL RDW 16.0 H (11.5-15.5) % Neutrophils # 11.8 H (1.3-7.7) k/uL INR 1.2 H (<1.2) Assessment and Plan Plan: #1 right femoral neck fracture #2 right humeral fracture #3 GBM #4 history of DVT #5Acute cystitis Plan: Continue on current medication regime ,monitoring and symptomatic treatment. PT/OT . Colace added to med regime, in addition to Senokot. Discharge planning in progress for subacute rehab tomorrow, as per orthopedics. Aggressive pulmonary toileting. Further recommendations to follow. The impression and plan of care has been dictated as directed. : I performed a H&P examination of this patient and discussed the same with the dictator. I agree with the dictator's note. Any additional findings/opinions/ etc. will be noted.
[2017-07-08] MEDS: DOCUSATE 100 MG CAP PO SCH (17:50)
[2017-07-08 22:09] LABS: Appearance,Urine Clear (Clear); Bacteria,Urine Rare /hpf; Bilirubin,Urine Negative (Negative); Glucose,Urine (UA) Negative (Negative); Ketones,Urine Negative (Negative); Leukocyte Esterase,Urine Negative (Negative); Mucus,Urine Moderate /hpf; Nitrite,Urine Negative (Negative); PH, Urine 5.5 (5.0-8.0); Particle Count 6946; Protein,Urine 1+ (Negative); RBC,Urine 17 /hpf (0-5); Specific Gravity,Urine 1.027 (1.001-1.035); Squamous Epithelial Cell,Urine <1 /hpf (0-4); UA Billing (MACRO vs. MICRO) MICRO; Urobilinogen,Urine <2.0 mg/dL (<2.0); WBC,Urine 7 /hpf (0-5)
[2017-07-08] MEDS: SENNOSIDES-DOCUSATE SODIUM 1 EACH TAB PO SCH (22:19)
[2017-07-09] MEDS: LEVOTHYROXINE 100 MCG TAB PO SCH (06:51)
[2017-07-09] MEDS: DABIGATRAN 150 MG CAP PO SCH (06:51)
[2017-07-09] MEDS: HYDROcodone/APAP 5-325MG 1 EACH TAB PO PRN (06:51)
[2017-07-09] MEDS: DOCUSATE 100 MG CAP PO SCH ×2 (07:01→08:35)
[2017-07-09] MEDS ORDERED: PANTOPRAZOLE SODIUM 40 MG GRANULE PKT PO SCH (07:30)
[2017-07-09 07:47] LABS: Anisocytosis Slight; Basophils # (A) 0.1 k/uL (0-0.2); Basophils % (A) 1 %; CH 31.7; CHCM 31.5; Eosinophils # (A) 0.1 k/uL (0-0.7); Eosinophils % (A) 1 %; HDW 3.28; HGB 9.8 gm/dL (11.4-16.0); Hypochromasia Moderate; Luc # (Auto) 0.28; Luc % (Auto) 2; Lymphocytes # (A) 1.2 k/uL (1.0-4.8); Lymphocytes % (A) 8 %; MCH 30.2 pg (25.0-35.0); MCHC 29.9 g/dL (31.0-37.0); MCV 101.1 fL (80.0-100.0); Macrocytosis Slight; Mean Platelet Volume 7.9; Monocytes # (A) 0.8 k/uL (0-1.0); Monocytes % (A) 5 %; Neutrophils # (A) 11.9 k/uL (1.3-7.7); Neutrophils % (A) 83 %; RBC 3.26 m/uL (3.80-5.40); RDW 16.1 % (11.5-15.5); WBC 14.3 k/uL (3.8-10.6); WBC (Perox) 13.99
[2017-07-09 07:49] LABS: INR 1.1 (<1.2); Prothrombin Time 11.1 sec (9.0-12.0)
[2017-07-09] MEDS: MULTIVITAMINS, THERA 1 EACH TAB PO SCH (08:35)
[2017-07-09] MEDS: traMADol 50 MG TAB PO SCH ×2 (08:35→13:36)
--- NOTE | 2017-07-09 11:51 | P.PN ---
Subjective Principal diagnosis: Right femoral neck fracture, right proximal humerus fracture Patient is pleasant 77-year-old female seen at bedside this morning. She is postop day #4 from right hip hemiarthroplasty for right femoral neck fracture. She has no new complaints today. She has sling in place for right proximal humerus fracture which there is no surgical intervention planned for. Pain appears to be controlled. She denies new numbness, tingling, calf pain, fever, chills, chest pain, shortness of breath or other. Objective - Vital Signs Vital signs: Vital Signs Temp 98.3 F 07/09/17 08:00 Pulse 100 07/09/17 08:00 Resp 17 07/09/17 08:00 BP 129/59 07/09/17 08:00 Pulse Ox 94 L 07/09/17 08:00 Intake & Output 07/08/17 07/09/17 07/09/17 18:59 06:59 18:59 Intake Total 260 1180 Output Total 0 520 0 Balance 260 660 0 Intake: Intake, IV Titration 50 Amount cefTRIAXone 1,000 mg In 50 Sodium Chloride 0.9% 50 ml @ 100 mls/hr IVPB Q24HR [facility] Rx#:[id number] Oral 210 1180 Output: Urine 520 Stool 0 0 Other: Voiding Method Indwelling Catheter Indwelling Catheter Indwelling Catheter - Exam Right upper and lower extremity are benign to inspection. There is no active wounds or bleeding to the right upper extremity. There is no erythema. Range of motion of the right shoulder is not tested due to the fracture. Paradichlorobenzene Machine Operator strength is intact. Motor and sensation is grossly intact throughout the right upper extremity. 2+ radial pulses present as well as less than 2 second cap refill. Right lower extremity is benign to inspection. Surgical wound is benign. There is no active bleeding or drainage.. Sensation to light touch is intact throughout. Calf is soft and nontender. 2+ dorsalis pedis pulses present and less than 2 second cap refill is present. She has active motor at the knee, ankle and foot and toes. - Constitutional General appearance: Present: no acute distress - Psychiatric Psychiatric: Present: appropriate affect - Labs CBC & Chem 7: 07/09/17 07:11 07/07/17 06:36 Labs: Abnormal Lab Results - Last 24 Hours (Table) 07/08/17 07/09/17 Range/Units 21:40 07:11 WBC 14.3 H (3.8-10.6) k/uL RBC 3.26 L (3.80-5.40) m/uL Hgb 9.8 L (11.4-16.0) gm/dL Hct 33.0 L (34.0-46.0) % MCV 101.1 H (80.0-100.0) fL MCHC 29.9 L (31.0-37.0) g/dL RDW 16.1 H (11.5-15.5) % Neutrophils # 11.9 H (1.3-7.7) k/uL Urine Protein 1+ H (Negative) Urine Blood Trace H (Negative) Urine RBC 17 H (0-5) /hpf Urine WBC 7 H (0-5) /hpf Urine Bacteria Rare H (None) /hpf Hyaline Casts 8 H (0-2) /lpf Urine Mucus Moderate H (None) /hpf Microbiology - Last 24 Hours (Table) 07/08/17 20:00 Urine Culture - Preliminary Urine,Catheterized Assessment and Plan (1) Hip fracture Narrative/Plan: In regards to her right proximal humerus fracture she is to remain in sling. She is nonweightbearing to the right upper extremity. No surgical intervention is planned for her right proximal humerus fracture. In regards to her right hip she is weightbearing as tolerated. She is cleared from an orthopedic standpoint to transfer to [facility]. Status: Acute (2) Proximal humerus fracture Status: Acute Time with Patient: Less than 30
--- NOTE | 2017-07-09 11:56 | P.DS ---
Providers Date of admission: 07/03/17 01:44 Attending physician: Melvin Oshea Consults: 07/03/17 01:20 Consult Physician Stat Consulting Provider: Cortez Poon Consult Reason/Comments: Glioblastoma Do you want consulting provider notified?: Yes Consult Physician Stat Consulting Provider: Hector Jameson Consult Reason/Comments: hip FX Do you want consulting provider notified?: Yes 07/03/17 09:36 Consult Physician Urgent Consulting Provider: Melvin Oshea Consult Reason/Comments: pre op clearance Do you want consulting provider notified?: Yes Primary care physician: Terri Bangura [place] [facility] Course: This 77-year-old woman with a past medical history multiple medical problems including glioblastoma multiforme be followed up in [facility] was being followed by Dr. Bangura in the preceding. Patient was admitted with right humeral fracture. Patient underwent a right hip hemiarthroplasty. Patient improved significantly. Patient had features of acute cystitis. Patient was treated with a course of empiric antibiotics. Cultures are negative so far. White count was elevated. Improved significantly. WBCs 14.7 today. Recommended outpatient follow-up with the Dr. Bangura and as well as 104 system. Currently on exam vitals stable S1-S2 normal cardio no murmurs. Respirator system normal soft nontender Status post fracture nervous system mild diffuse weakness. Patient be discharged in a stable condition with guarded prognosis. Total time taken 35 minutes. A short course of continued antibiotics also been recommended. Final diagnosis 1. Right femoral neck fracture status post right hip arthroplasty. 2. Glioblastoma multiforme he followed up [facility]. 4. History of DVT 5. Acute cystitis next 6. High WBCs possibly reactive to be followed up in the outpatient setting. Patient Condition at Discharge: Stable Plan - Discharge Summary New Discharge Prescriptions: New Docusate [Colace] 100 mg PO BID #60 capsule HYDROcodone/APAP 5-325MG [[place] 5-325] 1 tab PO Q4HR PRN #90 tab PRN Reason: Pain Acetaminophen Tab [Tylenol] 650 mg PO Q4HR PRN tab PRN Reason: Pain Scale 1 To 5 Multivitamins, Thera [Multivitamin (formulary)] 1 each PO DAILY@1200 tab Sennosides-Docusate Sodium [Senokot-S] 2 each PO HS tab Cefuroxime Axetil [Ceftin] 500 mg PO BID #10 tab Continue Omeprazole 20 mg PO DAILY@0730 Dabigatran [Pradaxa] 150 mg PO BID@729,1999 Oxybutynin Chloride 5 mg PO HS@1999 Citalopram Hydrobromide [CeleXA] 20 mg PO DAILY@1400 Levothyroxine Sodium [Synthroid] 100 mcg PO DAILY@0630 Discontinued HYDROcodone/APAP 5-325MG [Canton 5-325] 1 tab PO Q6H PRN PRN Reason: Pain Discharge Medication List Omeprazole 20 mg PO DAILY@0730 09/29/16 [History] Dabigatran [Pradaxa] 150 mg PO BID@0730,199905/13/17 [History] Citalopram Hydrobromide [CeleXA] 20 mg PO DAILY@1400 07/02/17 [History] Levothyroxine Sodium [Synthroid] 100 mcg PO DAILY@0630 07/02/17 [History] Oxybutynin Chloride 5 mg PO HS@199907/02/17 [History] Docusate [Colace] 100 mg PO BID #60 capsule 07/06/17 [Rx] HYDROcodone/APAP 5-325MG [C[place] 5-325] 1 tab PO Q4HR PRN #90 tab 07/06/17 [Rx] Acetaminophen Tab [Tylenol] 650 mg PO Q4HR PRN tab 07/09/17 [Rx] Cefuroxime Axetil [Ceftin] 500 mg PO BID #10 tab 07/09/17 [Rx] Multivitamins, Thera [Multivitamin (formulary)] 1 each PO DAILY@1200 tab [Rx] Sennosides-Docusate Sodium [Senokot-S] 2 each PO HS tab 07/09/17 [Rx] Follow up Appointment(s)/Referral(s): Robbie Dye MD [STAFF PHYSICIAN] - 3 Days (while at [facility]) Cortez Poon MD [STAFF PHYSICIAN] - 07/24/17 4:45 pm Terri Bangura MD [Primary Care Provider] - 1 Week (after dc from [facility]) Hector Jameson MD [STAFF PHYSICIAN] - 07/20/17 2:00 pm Activity/Diet/Wound Care/Special Instructions: [facility] RESUME TEMODAR 2 WEEKS AFTER SURGERY PER DR. POON. OK TO START ON 07/17/17 1. Weight-bear as tolerated with right lower extremity 2. Keep wound clean and dry 3. Take meds as directed 4. May shower in 72 hours 5. Follow-up with Dr. Jameson in office 6. Nonweightbearing with right upper extremity 7. Maintain sling to right upper extremity 8. Keep abductor pillow in place at all times while lying in bed CBC,bmp in 3 days Discharge Disposition: TRANSFER TO SNF/ECF
[2017-07-09] MEDS: SODIUM CHLORIDE 0.9% 1,000 ML IV SCH (13:33)
[2017-07-09] MEDS: traMADol 50 MG TAB PO PRN (13:37)
[2017-07-09 14:50] VITALS: BP 153/75; PULSE 110; RESP 16; TEMP 97.5
== END 2017-07-09 14:40 | DRG 470 ==
LOC: EC 21:26 → 3SUR 07-03 01:44
PROVIDERS: ADMIT Hospitalist; ATTEND Hospitalist
PROC: 0SRR01A Replacement of Right Hip Joint, Femoral Surface with Metal Synthetic Substitute, Uncemented, Open Approach (ICD-10-PCS; principal; 2017-07-05 08:35)
DX: S72.001A Fracture of unspecified part of neck of right femur, initial encounter for closed fracture (principal); C71.9 Malignant neoplasm of brain, unspecified; N30.00 Acute cystitis without hematuria; S42.201A Unspecified fracture of upper end of right humerus, initial encounter for closed fracture; I10 Essential (primary) hypertension; E07.9 Disorder of thyroid, unspecified; M75.01 Adhesive capsulitis of right shoulder; Z79.01 Long term (current) use of anticoagulants; Z79.899 Other long term (current) drug therapy; Z86.718 Personal history of other venous thrombosis and embolism; Z92.3 Personal history of irradiation; Z92.21 Personal history of antineoplastic chemotherapy; Z90.49 Acquired absence of other specified parts of digestive tract; W07.XXXA Fall from chair, initial encounter; Y92.009 Unspecified place in unspecified non-institutional (private) residence as the place of occurrence of the external cause
CPT/HCPCS: 36415; 70450; 71010; 73501; 73502; 80048; 80053; 81001; 85025; 85610; 85730; 86850; 86900; 86901; 87086; 88305; 88311; 93005; 94760

== ENCOUNTER 2018-04-25 11:53 | Emergency (ER) | payer MEDICARE ==
--- NOTE | 2018-04-25 12:41 | ED ---
General Adult HPI - General Chief complaint: Extremity Problem,Nontraumatic Stated complaint: lt knee swelling Time Seen by Provider: 04/25/18 12:08 Source: patient, family, RN notes reviewed Mode of arrival: wheelchair Limitations: no limitations - History of Present Illness Initial comments: 78-year-old female presents to the emergency department for a chief complaint of knee pain 3 months. Patient states the pain has been in her left knee on and off for that time. Patient denies any injury to the knee. Patient does have a history of arthritis. Patient has not seen primary care for this. Patient states that it has worsened in the past couple weeks and today it was painful to walk on. Patient states she has a history of blood clot and is concerned for that as well. Patient has no other complaints at this time including shortness of breath, chest pain, abdominal pain, nausea or vomiting, headache, or visual changes. - Related Data Home Medications Medication Instructions Recorded Confirmed Omeprazole 20 mg PO DAILY@0730 09/29/16 04/25/18 Dabigatran [Pradaxa] 150 mg PO BID@05/13/17 04/25/18 Citalopram Hydrobromide [CeleXA] 20 mg PO DAILY 07/02/17 04/25/18 Levothyroxine Sodium [Synthroid] 100 mcg PO DAILY@62907/02/17 04/25/18 Multivitamins, Thera [Multivitamin 1 tab PO DAILY 04/25/18 04/25/18 (formulary)] Previous Rx's Medication Instructions Recorded Acetaminophen Tab [Tylenol] 650 mg PO Q4HR PRN tab 07/09/17 Allergies Allergy/AdvReac Type Severity Reaction Status Date / Time hydromorphone [From Dilaudid] AdvReac Nausea Verified 04/25/18 13:06 Review of Systems ROS Statement: Those systems with pertinent positive or pertinent negative responses have been documented in the HPI. ROS Other: All systems not noted in ROS Statement are negative. Past Medical History Past Medical History: Cancer, Deep Vein Thrombosis (DVT), Hypertension, Thyroid Disorder Additional Past Medical History / Comment(s): treated glioblastoma, DVT behind the knee History of Any Multi-Drug Resistant Organisms: None Reported Past Surgical History: Cholecystectomy Additional Past Surgical History / Comment(s): thyroid removed, left ankle, craniotomy Past Anesthesia/Blood Transfusion Reactions: Postoperative Nausea & Vomiting ( PONV) Past Psychological History: No Psychological Hx Reported Smoking Status: Never smoker Past Alcohol Use History: None Reported Past Drug Use History: None Reported - Past Family History Mother Family Medical History: No Reported History Father Family Medical History: No Reported History General Exam Limitations: no limitations General appearance: alert, in no apparent distress Head exam: Present: atraumatic, normocephalic, normal inspection Eye exam: Present: normal appearance ENT exam: Present: normal exam, mucous membranes moist Neck exam: Present: normal inspection, full ROM. Absent: tenderness, meningismus, lymphadenopathy Respiratory exam: Present: normal lung sounds bilaterally. Absent: respiratory distress, wheezes, rales, rhonchi, stridor Cardiovascular Exam: Present: regular rate, normal rhythm, normal heart sounds. Absent: systolic murmur, diastolic murmur, rubs, gallop, clicks Extremities exam: Present: tenderness (Patient has mild tenderness to the posterior left knee. No tenderness to the anterior left knee.), normal capillary refill (Refill less than 2 seconds in the left lower extremity. Pedal pulse 2+.), other (Sensation intact in the left lower extremity.). Absent : full ROM (Patient has about 90 flexion of the left and right knee. Full extension of both the left and right knee. Patient has full range of motion of left foot and toes.), pedal edema, joint swelling (No swelling of the left knee. ), calf tenderness (No tenderness in the calf. No redness, swelling, warmth in the left calf. Negative Homans sign.) Course Vital Signs 04/25/18 04/25/18 11:55 14:47 Temperature 97.5 F L 97.9 F Pulse Rate 70 71 Respiratory 20 18 Rate Blood Pressure 160/82 146/65 O2 Sat by Pulse 99 97 Oximetry Medical Decision Making - Medical Decision Making 78-year-old female says the emergency determine for chief complaint of left knee pain 3 months. Patient states the pain has been worsening in the past week and today it was difficult to walk on. Patient has a history of arthritis. Patient also has a history of blood clot. On exam patient has some slightly limited range of motion of the left knee which is proportional to the range of motion of the right knee area neurovascular intact in the left lower extremity. No tenderness to the anterior aspect of the left knee the patient does have some mild posterior knee tenderness. No tenderness in the calf. No redness swelling or warmth in the calf. Negative Homans sign. As patient does have a history of blood clot they would like that to be evaluated as well. X- ray of the left knee shows osseous structures are demineralized. No acute fracture or dislocation evident in the left knee. There is mild tricompartmental joint space loss. Meniscal calcification laterally is present. Moderate joint effusion. Patient does have persistent DVT in the leg which is unchanged from the last ultrasound. Patient will continue to take her Pradaxa which she is aware of. She will follow up with orthopedics in one to 2 days. She will also follow up with primary care. She will take Tylenol for pain. Patient states she can get around at home with her walker and will not have difficulty doing so. She will return to the emergency Department if she has any worsening symptoms. Disposition Clinical Impression: Knee pain Disposition: HOME SELF-CARE Condition: Good Instructions: Knee Pain (ED) Additional Instructions: Please take Tylenol for pain. Please continue to take Pradaxa. Continue to use walker at home. Please follow-up with orthopedics and primary care in one to 2 days. Return to the emergency department if you have any worsening symptoms. Is patient prescribed a controlled substance at d/c from ED?: No Referrals: Terri Bangura MD [Primary Care Provider] - 1-2 days Yehuda Castle DO [Doctor of Osteopathic Medicine] - 1-2 days Time of Disposition: 15:02
--- NOTE | 2018-04-25 13:29 | XR ---
EXAMINATION TYPE: XR knee complete LT DATE OF EXAM: 04/25/2018 CLINICAL HISTORY: Left knee pain. TECHNIQUE: Three views of the left knee are obtained. COMPARISON: None. FINDINGS: Osseous structures are demineralized There is no acute fracture/dislocation evident in lef t knee. There is mild tricompartment joint space loss. Meniscal calcification laterally is present. I ncreased density suprapatellar bursa suggestive of moderate joint effusion. IMPRESSION: As above.
--- NOTE | 2018-04-25 14:43 | US ---
EXAMINATION TYPE: US venous doppler duplex LE LT DATE OF EXAM: 04/25/2018 12:52 PM COMPARISON: Bilateral lower extremity venous ultrasound February 07, 2017 CLINICAL HISTORY: Pain. SIDE PERFORMED: Left TECHNIQUE: The lower extremity deep venous system is examined utilizing real time linear array sonog gloria with graded compression, doppler sonography and color-flow sonography. VESSELS IMAGED: External Iliac Vein (EIV) Common Femoral Vein Deep Femoral Vein Greater Saphenous Vein * Femoral Vein Popliteal Vein Small Saphenous Vein * Proximal Calf Veins (* superficial vessels) Left Leg: Positive for DVT, non-occluding in proximal popliteal v, occluding at distal and calf v's. Grayscale, color doppler, spectral doppler imaging performed of the deep veins of the left lower extr emity. There is normal flow, compressibility, vascular waveforms the common femoral and superficial femoral vein. IMPRESSION: There is persistent partial occlusive thrombus beginning proximal popliteal vein which becomes completely occlusive in the deep popliteal vein extending into calf veins. This is unchanged in appearance from prior ultrasound and favored chronic. No new thrombus is evident.
[2018-04-25 14:49] VITALS: BP 146/65; PULSE 71; RESP 18; TEMP 97.9
== END 2018-04-25 15:22 | disposition home or self-care (01) ==
LOC: EC 11:53
DX: M25.562 Pain in left knee (principal); M81.0 Age-related osteoporosis without current pathological fracture; M25.462 Effusion, left knee; I82.4Z2 Acute embolism and thrombosis of unspecified deep veins of left distal lower extremity; E07.9 Disorder of thyroid, unspecified; Z79.01 Long term (current) use of anticoagulants; Z79.899 Other long term (current) drug therapy; Z88.5 Allergy status to narcotic agent; Z85.841 Personal history of malignant neoplasm of brain; Z98.890 Other specified postprocedural states
CPT/HCPCS: 99284

== ENCOUNTER → 2018-05-06 | Outpatient (CLI) | payer MEDICARE ==
--- NOTE | 2018-05-07 08:12 | XR ---
Lumbosacral spine HISTORY: Low back pain, left leg pain 5 views of the lumbosacral spine No comparisons There is a marked levoscoliosis centered at L1-L2. Bone mineralization is reduced which may limit sen sitivity. Lumbar vertebral bodies show preserved height. There is multilevel spondylosis. Loss of dis c height present at the intervertebral levels. Intervertebral vacuum phenomenon suspected. No evident spondylolysis. Sclerosis present in the posterior elements compatible with facet arthropathy. Questi on loss of height at T11. Vascular calcifications are suspected. Surgical clips in the right upper qu adrant. IMPRESSION: Marked scoliosis, osteoporosis, degenerative disc disease and facet arthropathy. Possible osteoporotic compression fracture, consider MRI for additional evaluation.
== END | disposition home or self-care (01) ==
LOC: RADXRYALE 15:49
PROVIDERS: ATTEND Internal Medicine
DX: M51.36 Other intervertebral disc degeneration, lumbar region (principal); M46.96 Unspecified inflammatory spondylopathy, lumbar region; M41.9 Scoliosis, unspecified; M81.0 Age-related osteoporosis without current pathological fracture
CPT/HCPCS: 72110

== ENCOUNTER → 2018-09-05 | Outpatient (CLI) | payer MEDICARE ==
--- NOTE | 2018-09-05 12:58 | XR ---
EXAMINATION TYPE: XR chest 2V DATE OF EXAM: 09/05/2018 COMPARISON: 07/02/2017 HISTORY: Cough and vomiting TECHNIQUE: Frontal and lateral views of the chest are obtained. FINDINGS: Mediastinal prominence likely related to rotation. Chronic fracture deformity of the right humerus is noted as well as generalized osseous demineralization. There are overall low lung volumes with no focal consolidation seen. Cholecystectomy clips are present. No pneumothorax or pleural effu jeannie. IMPRESSION: No acute pulmonary process. Prominent mediastinal size likely relates to patient rotatio n. If there is further concern CT thorax could assess for thoracic aneurysm.
== END | disposition home or self-care (01) ==
LOC: RADXRMAIN 12:31
PROVIDERS: ATTEND Registered Nurse Oncology
DX: R05 Cough (principal); C71.9 Malignant neoplasm of brain, unspecified; D63.8 Anemia in other chronic diseases classified elsewhere; I82.5Z9 Chronic embolism and thrombosis of unspecified deep veins of unspecified distal lower extremity; Z71.3 Dietary counseling and surveillance
CPT/HCPCS: 71046

== ENCOUNTER 2018-09-07 10:50 | Inpatient (IN) | payer MEDICARE ==
[2018-09-07] MEDS ORDERED: ONDANSETRON 4 MG/2 ML VIAL IVP STA (12:05)
[2018-09-07] MEDS ORDERED: SODIUM CHLORIDE 0.9% 1,000 ML IV STA (12:05)
--- NOTE | 2018-09-07 12:10 | ED ---
General Adult HPI - General Chief complaint: Nausea/Vomiting/Diarrhea Stated complaint: Uti Time Seen by Provider: 09/07/18 11:54 Source: family, RN notes reviewed Mode of arrival: wheelchair Limitations: altered mental status - History of Present Illness Initial comments: Patient is a pleasant 78-year-old female presenting to the emergency Department with complaints of nausea and vomiting. Family provides majority of history, patient is a poor historian. Patient was recently diagnosed with urinary tract infection and started on antibiotics. Patient symptoms seemed to worsen. Patient has been more fatigued and a little bit more confused than normal. Patient is agreeable that she seems a little bit more confused. Patient has been vomiting, several times. Family was afraid to give the patient her medications this morning secondary to vomiting. Patient does have a history of glioblastoma status post surgery and is currently on chemotherapy. Patient last received chemotherapy approximately one month ago. - Related Data Home Medications Medication Instructions Recorded Confirmed Dabigatran [Pradaxa] 150 mg PO BID@0730,199905/13/17 09/07/18 Citalopram Hydrobromide [CeleXA] 20 mg PO DAILY 07/02/17 09/07/18 Levothyroxine Sodium [Synthroid] 100 mcg PO DAILY@0630 07/02/17 09/07/18 Ascorbic Acid [Vitamin C] 09/07/18 Docusate [Colace] 100 mg PO Q2D 09/07/18 09/07/18 Ferrous Sulfate [Feosol] 325 mg PO DAILY 09/07/18 09/07/18 Pantoprazole Sodium [Protonix] 40 mg PO DAILY 09/07/18 09/07/18 Sulfamethox-Tmp 800-160Mg [Bactrim 1 tab PO BID 09/07/18 09/07/18 DS 800-160 mg] Previous Rx's Medication Instructions Recorded Acetaminophen Tab [Tylenol] 650 mg PO Q4HR PRN tab 07/09/17 Allergies Allergy/AdvReac Type Severity Reaction Status Date / Time hydromorphone [From Dilaudid] AdvReac Nausea Verified 09/07/18 13:16 Review of Systems ROS Statement: Those systems with pertinent positive or pertinent negative responses have been documented in the HPI. ROS Other: All systems not noted in ROS Statement are negative. Constitutional: Denies: fever Eyes: Denies: eye pain ENT: Denies: ear pain Respiratory: Denies: cough Cardiovascular: Denies: chest pain Endocrine: Reports: fatigue Gastrointestinal: Denies: abdominal pain Genitourinary: Reports: as per HPI Musculoskeletal: Denies: back pain Skin: Denies: rash Neurological: Reports: weakness, confusion Past Medical History Past Medical History: Cancer, Deep Vein Thrombosis (DVT), Hypertension, Thyroid Disorder Additional Past Medical History / Comment(s): treated glioblastoma, DVT behind the knee History of Any Multi-Drug Resistant Organisms: None Reported Past Surgical History: Cholecystectomy, Orthopedic Surgery Additional Past Surgical History / Comment(s): thyroid removed, left ankle, craniotomy, R hip Past Anesthesia/Blood Transfusion Reactions: Postoperative Nausea & Vomiting ( PONV) Past Psychological History: No Psychological Hx Reported Smoking Status: Never smoker Past Alcohol Use History: None Reported Past Drug Use History: None Reported - Past Family History Mother Family Medical History: No Reported History Father Family Medical History: No Reported History General Exam Limitations: no limitations General appearance: alert, in no apparent distress Head exam: Present: atraumatic Eye exam: Present: normal appearance Neck exam: Present: normal inspection Respiratory exam: Present: normal lung sounds bilaterally Cardiovascular Exam: Present: regular rate, normal rhythm GI/Abdominal exam: Present: soft. Absent: tenderness, guarding Extremities exam: Present: normal inspection Neurological exam: Present: alert, altered. Absent: motor sensory deficit ( Limited exam. Patient is slow to follow commands and has difficulty with this.) Expanded Neurological exam: Present: other (No weakness on exam. Exam is somewhat limited by patient compliance.) Patient oriented to: Present: person, place (Patient states she is in the doctor 's office). Absent: time Psychiatric exam: Present: flat affect Skin exam: Present: normal color Course Vital Signs 09/07/18 09/07/18 11:45 13:08 Temperature 99.1 F Pulse Rate 61 64 Respiratory 18 14 Rate Blood Pressure 145/69 135/63 O2 Sat by Pulse 94 L 94 L Oximetry Medical Decision Making - Medical Decision Making Patient reevaluated and somewhat improved. Patient and family updated. Case discussed with Dr. Grimes, who will admit for Dr. Bangura. Patient does not meet sepsis criteria. - Lab Data Result diagrams: 09/07/18 12:55 09/07/18 12:55 Lab Results 09/07/18 09/07/1809/07/18 Range/Units 12:55 12:55 14:06 WBC 13.4 H (3.8-10.6) k/uL RBC 4.20 (3.80-5.40) m/uL Hgb 11.3 L (11.4-16.0) gm/dL Hct 37.0 (34.0-46.0) % MCV 88.0 (80.0-100.0) fL MCH 26.9 (25.0-35.0) pg MCHC 30.5 L (31.0-37.0) g/dL RDW 18.0 H (11.5-15.5) % Plt Count 245 (150-450) k/uL Neutrophils % 83 % Lymphocytes % 9 % Monocytes % 6 % Eosinophils % 1 % Basophils % 0 % Neutrophils # 11.1 H (1.3-7.7) k/uL Lymphocytes # 1.2 (1.0-4.8) k/uL Monocytes # 0.8 (0-1.0) k/uL Eosinophils # 0.1 (0-0.7) k/uL Basophils # 0.0 (0-0.2) k/uL Hypochromasia Marked Anisocytosis Slight Sodium 137 (137-145) mmol/L Potassium 4.8 (3.5-5.1) mmol/L Chloride 103 (98-107) mmol/L Carbon Dioxide 25 (22-30) mmol/L Anion Gap 9 mmol/L BUN 12 (7-17) mg/dL Creatinine 0.69 (0.52-1.04) mg/dL Est GFR (CKD-EPI)AfAm >90 (>60 ml/min/1.73 sqM) Est GFR (CKD-EPI)NonAf 84 (>60 ml/min/1.73 sqM) Glucose 110 H (74-99) mg/dL Calcium 9.7 (8.4-10.2) mg/dL Total Bilirubin 0.7 (0.2-1.3) mg/dL AST 23 (14-36) U/L ALT 17 (9-52) U/L Alkaline Phosphatase 55 (38-126) U/L Total Protein 6.3 (6.3-8.2) g/dL Albumin 3.7 (3.5-5.0) g/dL Amylase 70 (30-110) U/L Lipase 117 (23-300) U/L Urine Color Yellow Urine Appearance Cloudy H (Clear) Urine pH 6.5 (5.0-8.0) Ur Specific [place] 1.022 (1.001-1.035) Urine Protein Trace H (Negative) Urine Glucose (UA) Negative (Negative) Urine Ketones Negative (Negative) Urine Blood Negative (Negative) Urine Nitrite Negative (Negative) Urine Bilirubin Negative (Negative) Urine Urobilinogen 2.0 (<2.0) mg/dL Ur Leukocyte Esterase Trace H (Negative) Urine WBC 3 (0-5) /hpf Ur Squamous Epith Cells 1 (0-4) /hpf Urine Bacteria Rare H (None) /hpf Urine Mucus Few H (None) /hpf - Radiology Data Radiology results: image reviewed (Chest x-ray shows cardiomegaly, vascular congestion, left basilar airspace disease) Disposition Clinical Impression: Vomiting, Pneumonia Disposition: ADMITTED IP TO THIS [facility] Is patient prescribed a controlled substance at d/c from ED?: No Referrals: Terri Bangura MD [Primary Care Provider] - 1-2 days Decision Time: 15:02
[2018-09-07 13:04] LABS: Anisocytosis Slight; Basophils % (A) 0 %; Eosinophils # (A) 0.1 k/uL (0-0.7); Eosinophils % (A) 1 %; HGB 11.3 gm/dL (11.4-16.0); Hypochromasia Marked; Lymphocytes # (A) 1.2 k/uL (1.0-4.8); Lymphocytes % (A) 9 %; MCH 26.9 pg (25.0-35.0); MCHC 30.5 g/dL (31.0-37.0); Mean Platelet Volume 7.8; Monocytes # (A) 0.8 k/uL (0-1.0); Monocytes % (A) 6 %; Neutrophils # (A) 11.1 k/uL (1.3-7.7); Neutrophils % (A) 83 %; Platelet Count 245 k/uL (150-450); WBC 13.4 k/uL (3.8-10.6)
[2018-09-07 13:14] LABS: ALT 17 U/L (9-52); AST 23 U/L (14-36); Albumin 3.7 g/dL (3.5-5.0); Alkaline Phosphatase 55 U/L (38-126); Amylase 70 U/L (30-110); Anion Gap 9 mmol/L; Blood Urea Nitrogen 12 mg/dL (7-17); Calcium 9.7 mg/dL (8.4-10.2); Carbon Dioxide 25 mmol/L (22-30); Chloride 103 mmol/L (98-107); Glucose 110 mg/dL (74-99); Lipase 117 U/L (23-300); Potassium 4.8 mmol/L (3.5-5.1); Sodium 137 mmol/L (137-145); Total Bilirubin 0.7 mg/dL (0.2-1.3); Total Protein 6.3 g/dL (6.3-8.2)
--- NOTE | 2018-09-07 13:25 | XR ---
EXAMINATION TYPE: XR chest 2V DATE OF EXAM: 09/07/2018 HISTORY: weak. REFERENCE: Previous study dated 09/05/2018. FINDINGS: Heart size upper limits of normal. There has developed left basilar airspace disease. There is prominence of the ascending thoracic aorta. There is vascular congestion without qian edema. The re is a small left effusion. IMPRESSION: 1. BORDERLINE CARDIOMEGALY. 2. LEFT BASILAR AIRSPACE DISEASE WHICH HAS WORSENED. 3. VASCULAR CONGESTION. 4. PROMINENCE OF THE ASCENDING THORACIC AORTA.
[2018-09-07 14:27] LABS: Appearance,Urine Cloudy (Clear); Bacteria,Urine Rare /hpf; Bilirubin,Urine Negative (Negative); Blood,Urine Negative (Negative); Color,Urine Yellow; Glucose,Urine (UA) Negative (Negative); Ketones,Urine Negative (Negative); Leukocyte Esterase,Urine Trace (Negative); Mucus,Urine Few /hpf; Nitrite,Urine Negative (Negative); PH, Urine 6.5 (5.0-8.0); Protein,Urine Trace (Negative); Specific Gravity,Urine 1.022 (1.001-1.035); Squamous Epithelial Cell,Urine 1 /hpf (0-4); WBC,Urine 3 /hpf (0-5)
[2018-09-07] MEDS ORDERED: PNEUMONIA PROTOCOL UTILIZED 1 EACH MISC PO PRN (15:03)
[2018-09-07] MEDS ORDERED: AZITHROMYCIN 500 MG in SODIUM CHLORIDE 0.9% 250 ML IVPB STA (15:03)
[2018-09-07] MEDS ORDERED: ACETAMINOPHEN TAB 325 MG TAB PO PRN (17:37)
[2018-09-07] MEDS: SODIUM CHLORIDE 0.9% 1,000 ML IV SCH (17:43)
--- NOTE | 2018-09-07 19:25 | P.HPIM ---
History of Present Illness H&P Date: 09/07/18 Chief Complaint: Confusion and lethargy Patient is a 78-year-old female with a known history of glioblastoma with chemotherapy on August 12 at [facility], hypertension, hypothyroidism and history of DVT was brought to the hospital with complaints of lethargic confusion and is being treated for urinary tract infection for the past 2 weeks. Patient has been feeling ready weeks for the last 2 weeks. Patient was initially treated with ciprofloxacin. Patient developed fever and chills last Sunday and antibiotics were changed to Bactrim currently. Patient has been having nausea and vomiting and unable to tolerate oral diet. Patient has been more fatigued and a little bit more confused than normal. Patient is agreeable that she seems a little bit more confused. Patient has been vomiting, several times. Family was afraid to give the patient her medications this morning secondary to vomiting. Patient does have a history of glioblastoma status post surgery and is currently on chemotherapy. Patient last received chemotherapy approximately one month ago. Patient also had history of chemotherapy few years ago for glioblastoma. Currently patient denied any chest pain or shortness of breath. Most of the history was taken from her granddaughter and daughter at bedside. Patient is a poor historian due to her altered mentation currently. Chest x-ray showed Borderline cardiomegaly. left basilar airspace disease which has worsened.. Vascular congestion. Prominence of the ascending aorta. WBC 13.4 UA is cloudy and trace leukocyte esterase Review of Systems Constitutional: Patient denies any fever or chills currently . Patient does have generalized weakness, lethargy. Abdomen: Patient has been having nausea vomiting and no abdominal pain.. Cardiovascular: Patient denies any chest pain or short of breath no palpitations. Respiratory: patient denied any cough is from production. No shortness of breath Neurologic: Patient denied any numbness or tingling headache. Confusion. Complete review of systems could not be obtained from the patient. Past Medical History Past Medical History: Cancer, Deep Vein Thrombosis (DVT), Hypertension, Thyroid Disorder Additional Past Medical History / Comment(s): treated glioblastoma, DVT behind the knee History of Any Multi-Drug Resistant Organisms: None Reported Past Surgical History: Cholecystectomy, Orthopedic Surgery Additional Past Surgical History / Comment(s): thyroid removed, left ankle, craniotomy, R hip Past Anesthesia/Blood Transfusion Reactions: Postoperative Nausea & Vomiting ( PONV) Past Psychological History: No Psychological Hx Reported Smoking Status: Never smoker Past Alcohol Use History: None Reported Past Drug Use History: None Reported - Past Family History Mother Family Medical History: No Reported History Father Family Medical History: No Reported History Medications and Allergies Home Medications Medication Instructions Recorded Confirmed Type Dabigatran [Pradaxa] 150 mg PO BID@0730,199905/13/17 09/07/18 History Citalopram Hydrobromide [CeleXA] 20 mg PO DAILY 07/02/17 09/07/18 History Levothyroxine Sodium [Synthroid] 100 mcg PO DAILY@0630 07/02/17 09/07/18 History Acetaminophen Tab [Tylenol] 650 mg PO Q4HR PRN tab 07/09/17 09/07/18 Rx Ascorbic Acid [Vitamin C] 09/07/18 History Docusate [Colace] 100 mg PO Q2D 09/07/18 09/07/18 History Ferrous Sulfate [Feosol] 325 mg PO DAILY 09/07/18 09/07/18 History Pantoprazole Sodium [Protonix] 40 mg PO DAILY 09/07/18 09/07/18 History Sulfamethox-Tmp 800-160Mg [Bactrim 1 tab PO BID 09/07/18 09/07/18 History DS 800-160 mg] Allergies Allergy/AdvReac Type Severity Reaction Status Date / Time hydromorphone [From Dilaudid] AdvReac Nausea Verified 09/07/18 13:16 Physical Exam Vitals: Vital Signs Temp Pulse Pulse Resp BP BP Pulse Ox 09/07/18 17:45 65 16 09/07/18 16:28 99.0 F 76 16 134/68 98 09/07/18 16:20 98.5 F 65 16 149/80 98 09/07/18 15:44 61 94 H 137/67 96 09/07/18 13:08 64 14 135/63 94 L 09/07/18 11:45 99.1 F 61 18 145/69 94 L Intake and Output 09/07/18 09/07/18 09/07/18 06:59 14:59 22:59 Other: # Voids 1 Weight 83.915 kg PHYSICAL EXAMINATION: Patient is lying in the bed comfortably, no acute distress, awake alert but confused.. HEENT: Normocephalic. Neck is supple. Pupils reactive. Nostrils clear. Oral cavity is moist. Ears reveal no drainage. Neck reveals no JVD, carotid bruits, or thyromegaly. CHEST EXAMINATION: Trachea is central. Symmetrical expansion. Bibasilar diminished breath sounds and crackles at left basal. No wheezing. CARDIAC: Normal S1, S2 with no gallops. No murmurs ABDOMEN: Soft. Bowel sounds normal. No organomegaly. No abdominal bruits. Extremities: reveal no edema. No clubbing or cyanosis Neurologically awake, alert, oriented x2-3 with well-coordinated movements. No focal deficits noted Skin: No rash or skin lesions. Psychiatric: Coperative. Could not basis are completely Musculoskeletal: No joint swelling or deformity. Normal range of motion. Results CBC & Chem 7: 09/07/18 12:55 09/07/18 12:55 Labs: Abnormal Lab Results - Last 24 Hours (Table) 09/07/18 09/07/18 09/07/18 Range/Units 12:55 12:55 14:06 WBC 13.4 H (3.8-10.6) k/uL Hgb 11.3 L (11.4-16.0) gm/dL MCHC 30.5 L (31.0-37.0) g/dL RDW 18.0 H (11.5-15.5) % Neutrophils # 11.1 H (1.3-7.7) k/uL Glucose 110 H (74-99) mg/dL Urine Appearance Cloudy H (Clear) Urine Protein Trace H (Negative) Ur Leukocyte Esterase Trace H (Negative) Urine Bacteria Rare H (None) /hpf Urine Mucus Few H (None) /hpf Thrombosis Risk Factor Assmnt - DVT/VTE Prophylaxis DVT/VTE Prophylaxis: Pharmacologic Prophylaxis ordered - Choose All That Apply Any of the Below Risk Factors Present?: Yes Each Factor Represents 1 point: Obesity (BMI >25) Each Risk Factor Represents 2 Points: Age 61-74 years, Patient confined to bed Other congenital or acquired thrombophilia - If yes, enter type in comment: No Thrombosis Risk Factor Assessment Total Risk Factor Score: 5 Thrombosis Risk Factor Assessment Level: High Risk Assessment and Plan Assessment: Left basilar pneumonia. Possibly Community-acquired Recent treatment for acute urinary tract infection with Cipro and later changed to Bactrim. Confusion lethargic and possible metabolic encephalopathy due to infection Recent chemotherapy on August 12 for glioblastoma at [facility] DVT currently on anticoagulation with Pradaxa Normocytic anemia Hypertension Hypothyroidism Anxiety and depression Plan: Patient was given 1 L fluid bolus. Continue with antibiotics in the form of ceftriaxone and azithromycin. Follow-up blood culture, urine culture and sputum culture reports. Continue with home medications and oncology was consulted. Symptomatic management for nausea and vomiting. Follow up closely. Further recommendations based on the clinical course. Discussed with the family in detail at bedside and all questions were answered. Time with Patient: Greater than 30
[2018-09-07] MEDS: DABIGATRAN 150 MG CAP PO SCH (20:32)
[2018-09-08] MEDS: SODIUM CHLORIDE 0.9% 1,000 ML IV SCH ×2 (02:30→13:21)
[2018-09-08] MEDS: LEVOTHYROXINE 100 MCG TAB PO SCH (06:05)
[2018-09-08 08:03] LABS: Anisocytosis Slight; Basophils % (A) 0 %; Eosinophils % (A) 0 %; HCT 32.3 % (34.0-46.0); HGB 9.9 gm/dL (11.4-16.0); Hypochromasia Marked; Lymphocytes # (A) 1.2 k/uL (1.0-4.8); Lymphocytes % (A) 17 %; MCH 27.1 pg (25.0-35.0); MCHC 30.6 g/dL (31.0-37.0); MCV 88.6 fL (80.0-100.0); Mean Platelet Volume 8.2; Monocytes # (A) 0.6 k/uL (0-1.0); Monocytes % (A) 8 %; Neutrophils # (A) 5.4 k/uL (1.3-7.7); Neutrophils % (A) 73 %; Platelet Count 207 k/uL (150-450); RBC 3.65 m/uL (3.80-5.40); RDW 17.9 % (11.5-15.5); WBC 7.3 k/uL (3.8-10.6)
[2018-09-08 08:11] LABS: ALT 17 U/L (9-52); AST 15 U/L (14-36); Albumin 2.7 g/dL (3.5-5.0); Alkaline Phosphatase 42 U/L (38-126); Anion Gap 5 mmol/L; Blood Urea Nitrogen 10 mg/dL (7-17); Calcium 8.8 mg/dL (8.4-10.2); Carbon Dioxide 27 mmol/L (22-30); Chloride 107 mmol/L (98-107); Glucose 89 mg/dL (74-99); Potassium 4.6 mmol/L (3.5-5.1); Sodium 139 mmol/L (137-145); Total Bilirubin 0.4 mg/dL (0.2-1.3)
[2018-09-08] MEDS: DABIGATRAN 150 MG CAP PO SCH ×2 (08:13→21:17)
[2018-09-08] MEDS: CITALOPRAM HYDROBROMIDE 20 MG TAB PO SCH (08:13)
[2018-09-08] MEDS: AZITHROMYCIN 500 MG TAB PO SCH (08:13)
[2018-09-08] MEDS: PANTOPRAZOLE 40 MG TABLET PO SCH (08:13)
[2018-09-08] MEDS: DOCUSATE 100 MG CAP PO SCH (08:13)
[2018-09-08] MEDS ORDERED: FERROUS SULFATE 325 MG TAB PO SCH (09:00)
--- NOTE | 2018-09-08 09:24 | XR ---
EXAMINATION TYPE: XR chest 2V DATE OF EXAM: 09/08/2018 HISTORY: pneumonia. REFERENCE: Previous study dated 09/07/2018. FINDINGS: The heart is mildly enlarged. There is prominence of the ascending thoracic aorta. There is bibasilar airspace disease. Vascular congestion has improved. There are small bilateral effusions. IMPRESSION: 1. MILD CARDIOMEGALY. 2. IMPROVING VASCULAR STATUS. 3. BIBASILAR AIRSPACE DISEASE. 4. SMALL, BILATERAL EFFUSIONS.
--- NOTE | 2018-09-08 12:25 | P.PN ---
Subjective Progress Note Date: 09/08/18 Principal diagnosis: Pneumonia, UTI Patient was seen and examined. No acute events overnight. All 3 daughters at bedside. Daughters report that patient has greatly improved since admission. Information was obtained from the daughter. Patient presented to her PCP on Sunday for multiple episodes of vomiting and confusion. Urinalysis was collected and UTI was identified, patient was started on Bactrim by mouth. Patient continued to deteriorate on Sunday, prompting family to bring the patient to the ED. Of note, patient has a history of glioblastoma status post surgery in February 2017. She has right residual weakness but is able to ambulate with a walker. She is most recently undergone a chemotherapy session at [facility]. Objective - Vital Signs Vital signs: Vital Signs Temp 98.3 F 09/08/18 05:35 Pulse 52 L 09/08/18 05:35 Resp 16 09/08/18 05:35 BP 103/58 09/08/18 05:35 Pulse Ox 98 09/08/18 05:35 Intake & Output 09/07/18 09/08/18 09/08/18 18:59 06:59 18:59 Intake Total 500 Output Total 800 Balance -800 500 Weight 83.915 kg Intake: Oral 500 Output: Urine 400 Straight 400 Post Void Residual 400 Other: # Voids 1 2 1 - Exam General: [non toxic], [no distress], [appears at stated age] Derm: [warm], [dry] Head: [atraumatic], [normocephalic], [symmetric] Eyes: [EOMI], [no lid lag], [anicteric sclera] Mouth: [no lip lesion], [mucus membranes moist] Cardiovascular: [S1S2 reg], [no murmur], [positive DP pulse bilateral] Lungs: [CTA bilateral], [no rhonchi, no rales] , [no accessory muscle use] Abdominal: [soft], [ nontender to palpation], [no guarding], [no appreciable organomegaly] Ext: [no gross muscle atrophy], [no edema], [no contractures] Psych: [Nonverbal at this time] - Labs CBC & Chem 7: 09/08/18 07:24 09/08/18 07:24 Labs: Abnormal Lab Results - Last 24 Hours (Table) 09/07/18 09/07/1818 Range/Units 12:55 12:55 14:06 WBC 13.4 H (3.8-10.6) k/uL RBC (3.80-5.40) m/uL Hgb 11.3 L (11.4-16.0) gm/dL Hct (34.0-46.0) % MCHC 30.5 L (31.0-37.0) g/dL RDW 18.0 H (11.5-15.5) % Neutrophils # 11.1 H (1.3-7.7) k/uL Glucose 110 H (74-99) mg/dL Total Protein (6.3-8.2) g/dL Albumin (3.5-5.0) g/dL Urine Appearance Cloudy H (Clear) Urine Protein Trace H (Negative) Ur Leukocyte Esterase Trace H (Negative) Urine Bacteria Rare H (None) /hpf Urine Mucus Few H (None) /hpf 09/08/18 09/08/18 Range/Units 07:24 07:24 WBC (3.8-10.6) k/uL RBC 3.65 L (3.80-5.40) m/uL Hgb 9.9 L (11.4-16.0) gm/dL Hct 32.3 L (34.0-46.0) % MCHC 30.6 L (31.0-37.0) g/dL RDW 17.9 H (11.5-15.5) % Neutrophils # (1.3-7.7) k/uL Glucose (74-99) mg/dL Total Protein 5.0 L (6.3-8.2) g/dL Albumin 2.7 L (3.5-5.0) g/dL Urine Appearance (Clear) Urine Protein (Negative) Ur Leukocyte Esterase (Negative) Urine Bacteria (None) /hpf Urine Mucus (None) /hpf Microbiology - Last 24 Hours (Table) 09/07/18 14:06 Urine Culture - Preliminary Urine,Catheterized Assessment and Plan Assessment: Assessment and Plan 1. Community acquired pneumonia: CXR shows L basilar airspace disease. Patient is afebrile with a mild leukocytosis of 13.4 on admission (resolved on day 2). Continue Ceftriaxone 1g IV QD, Azithomycin 500 mg PO QD. Start Mucinex 600 mg PO BID. Repeat CXR improved this AM. O2 per NC to maintain O2 sat > 92%. FU BCx and Sputum Cx 2. UTI: Failed outPT Rx with Cipro and Bactrim. UA shows + LE. Covered with Ceftriaxone IV. FU Bladder scan, UCx 3. Acute metabolic encephalopathy: Likely secondary to chemotherapy in combination with PNA and UTI. Great improvement today as per family. Continue IV Abx. Monitor. 4. Glioblastoma: Gets chemotherapy at [facility]. FU Oncology 5. DVT: Continue Pradaxa 150 mg PO BID. 6. Hypothyroidism: Stable. Continue Synthroid 100 mcg PO QD. 7. Depression: Continue Celexa 20 mg PO QD. 8. DVT/GI Prophylaxis: Protonix 40 mg PO QAM. Pradaxa. Patient shows improvement. Would benefit from 1 more day of IV Abx. Pending UCx and BCx results.
--- NOTE | 2018-09-08 13:09 | P.CONS ---
History of Present Illness - Reason for Consult Consult date: 09/08/18 cancer Requesting physician: Philippe Andrews - Chief Complaint Nausea and vomitinf - History of Present Illness jose presented to Dr Bangura with progresive confusion, personality changes, headaches and nausea. MRI of head on 02/08/2017 revealed enhancing posterior L frontal cavity lesion C/W Glioma. She had resection by Dr Yañez at [facility] on 02/19/2017 revealing GBM> recovered well ( Rehab) and is home being helped by multiple family members. She is ambulating with assistance of walker, denies headache, nausea , visual symptoms or confusion. 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 She is a life-time non smoker, ETOH use. The patient was re-evaluated by Dr Gonzales > she was recommended to have External beam Radiation therapy concurrent with Temodar chemotherapy to be followed by 12 months of adjuvant Temodar Chemotherapy. Was seen dy Dr Jaimes and will be simulated for Radiation shortley. 04/20/17: Feels Ok, tolerating Radiation therapy/Temodar Chemotherapy very well ( slight fatigue). 08/08/18: She was recently evaluated by Dr Gonzales and felt to have progressive GBM > Temodar suggested. The patient had 1 dose of Temodar ( 5 days course) in April 2017 with severe intolerable nausea/vomiting despite Zofran, was hospitalized and no further Temodar provided. - Recently she has been treated and evaluated at [facility]: During todays evaluation three daughters at bedside, she was seen in PCP office last week for increased nausea, mental status changes and diagnosed with recurrent UTI, recently completed CIpro so placed on Bactrim. Her symptoms continued and worsened so she was ever into the hospital for further evaluation. On admission a chest xray revealed pneumonia. Nausea has improved, daughters feel she likely aspirated while vomiting. SHe has not has BM in 5 days. Review of Systems A 14 point review of systems assessed and completed and all negative except HPI Past Medical History Past Medical History: Cancer, Deep Vein Thrombosis (DVT), Hypertension, Thyroid Disorder Additional Past Medical History / Comment(s): treated glioblastoma, DVT behind the knee History of Any Multi-Drug Resistant Organisms: None Reported Past Surgical History: Cholecystectomy, Orthopedic Surgery Additional Past Surgical History / Comment(s): thyroid removed, left ankle, craniotomy, R hip Past Anesthesia/Blood Transfusion Reactions: Postoperative Nausea & Vomiting ( PONV) Past Psychological History: No Psychological Hx Reported Smoking Status: Never smoker Past Alcohol Use History: None Reported Past Drug Use History: None Reported - Past Family History Mother Family Medical History: No Reported History Father Family Medical History: No Reported History Medications and Allergies Home Medications Medication Instructions Recorded Confirmed Type Dabigatran [Pradaxa] 150 mg PO BID@729,199905/13/17 09/07/18 History Citalopram Hydrobromide [CeleXA] 20 mg PO DAILY 07/02/17 09/07/18 History Levothyroxine Sodium [Synthroid] 100 mcg PO DAILY@0630 07/02/17 09/07/18 History Acetaminophen Tab [Tylenol] 650 mg PO Q4HR PRN tab 07/09/17 09/07/18 Rx Ascorbic Acid [Vitamin C] 09/07/18 History Docusate [Colace] 100 mg PO Q2D 09/07/18 09/07/18 History Ferrous Sulfate [Feosol] 325 mg PO DAILY 09/07/18 09/07/18 History Pantoprazole Sodium [Protonix] 40 mg PO DAILY 09/07/18 09/07/18 History Sulfamethox-Tmp 800-160Mg [Bactrim 1 tab PO BID 09/07/18 09/07/18 History DS 800-160 mg] Allergies Allergy/AdvReac Type Severity Reaction Status Date / Time hydromorphone [From Dilaudid] AdvReac Nausea Verified 09/07/18 13:16 Physical Exam Vitals: Vital Signs Temp Pulse Pulse Resp BP BP Pulse Ox 09/08/18 05:35 98.3 F 52 L 16 103/58 98 09/07/18 22:48 98.4 F 60 17 131/77 97 09/07/18 17:45 65 16 09/07/18 16:28 99.0 F 76 16 134/68 98 09/07/18 16:20 98.5 F 65 16 149/80 98 09/07/18 15:44 61 94 H 137/67 96 09/07/18 13:08 64 14 135/63 94 L 09/07/18 11:45 99.1 F 61 18 145/69 94 L Intake and Output 09/07/18 09/08/18 09/08/18 22:59 06:59 14:59 Output Total 800 Balance -800 Output: Urine 400 Straight 400 Post Void Residual 400 Other: # Voids 1 2 no acute distress, awake alert but confused.. HEENT: Normocephalic. Neck is supple. Oral cavity is moist. Necksupple, trachea midline CHEST EXAMINATION: Bibasilar diminished breath sounds and crackles at left basal. No wheezing. CARDIAC: Normal S1, S2 with no gallops. No murmurs ABDOMEN: Soft. Bowel sounds normal. No organomegaly. Extremities: reveal no edema. No clubbing or cyanosis Neurologically awake, alert, oriented x2-3 with No focal deficits noted Skin: No rash or skin lesions. Psychiatric: Cooperative. Musculoskeletal: No joint swelling or deformity. Normal range of motion. Atrophic extremity muscles noted Results CBC & Chem 7: 09/08/18 07:24 09/08/18 07:24 Labs: Abnormal Lab Results - Last 24 Hours (Table) 09/07/18 09/07/18 09/07/18 Range/Units 12:55 12:55 14:06 WBC 13.4 H (3.8-10.6) k/uL RBC (3.80-5.40) m/uL Hgb 11.3 L (11.4-16.0) gm/dL Hct (34.0-46.0) % MCHC 30.5 L (31.0-37.0) g/dL RDW 18.0 H (11.5-15.5) % Neutrophils # 11.1 H (1.3-7.7) k/uL Glucose 110 H (74-99) mg/dL Total Protein (6.3-8.2) g/dL Albumin (3.5-5.0) g/dL Urine Appearance Cloudy H (Clear) Urine Protein Trace H (Negative) Ur Leukocyte Esterase Trace H (Negative) Urine Bacteria Rare H (None) /hpf Urine Mucus Few H (None) /hpf 09/08/18 09/08/18 Range/Units 07:24 07:24 WBC (3.8-10.6) k/uL RBC 3.65 L (3.80-5.40) m/uL Hgb 9.9 L (11.4-16.0) gm/dL Hct 32.3 L (34.0-46.0) % MCHC 30.6 L (31.0-37.0) g/dL RDW 17.9 H (11.5-15.5) % Neutrophils # (1.3-7.7) k/uL Glucose (74-99) mg/dL Total Protein 5.0 L (6.3-8.2) g/dL Albumin 2.7 L (3.5-5.0) g/dL Urine Appearance (Clear) Urine Protein (Negative) Ur Leukocyte Esterase (Negative) Urine Bacteria (None) /hpf Urine Mucus (None) /hpf Microbiology - Last 24 Hours (Table) 09/07/18 14:06 Urine Culture - Preliminary Urine,Catheterized Chest x-ray: report reviewed Assessment and Plan Plan: Assessment and Plan 1. Glioblastoma: Current treatment out of [facility] - Recent started low dose Temodar. 2. Community acquired pneumonia: CXR shows L basilar airspace disease. - Patient is afebrile with a mild leukocytosis of 13.4 on admission (resolved on day 2). - Continue IV anx per Primary, Pulm, and ID 3. UTI: Failed outPT Rx with Cipro and Bactrim. 4. Acute metabolic encephalopathy: Likely secondary to chemotherapy in combination with PNA and UTI. - Appears to be improving since admission 5. HX: Hypercoagulability: Continue Pradaxa 150 mg PO BID. 6. Normocytic Anemia - Likely secondary to chemotherapy and Dilutional. - Will check Anemia Work-up. 7. COnstipation: - Add Senna - S - Abdominal FLat PLate 8/ Nausera and VOmting: - Improving Greater than 30 minutes wiuth daughter Thank you for allowing us to participate in the care of your patient
[2018-09-08] MEDS ORDERED: SENNOSIDES-DOCUSATE SODIUM 1 EACH TAB PO PRN (14:11)
--- NOTE | 2018-09-08 15:31 | XR ---
EXAMINATION TYPE: XR abdomen 2V DATE OF EXAM: 09/08/2018 COMPARISON: NONE HISTORY: Constipation TECHNIQUE: Supine and upright views FINDINGS: There is some patchy infiltrate at the left lung base. There is hiatal hernia. There is carrie e blunting of costophrenic angles. There is no sign of intestinal obstruction or pneumoperitoneum. Th ere are clips from cholecystectomy. Fecal pattern is normal. IMPRESSION: Nonacute abdomen. Left lower lobe infiltrate. There are probably small pleural effusions.
[2018-09-08] MEDS: guaiFENesin 600 MG TABLET.ER PO SCH (22:59)
[2018-09-09] MEDS: LEVOTHYROXINE 100 MCG TAB PO SCH (06:05)
[2018-09-09 08:37] LABS: Anisocytosis Slight; Basophils % (A) 0 %; Eosinophils % (A) 1 %; HGB 10.3 gm/dL (11.4-16.0); Hypochromasia Marked; Lymphocytes # (A) 1.2 k/uL (1.0-4.8); Lymphocytes % (A) 19 %; MCH 26.9 pg (25.0-35.0); MCHC 30.3 g/dL (31.0-37.0); MCV 89.1 fL (80.0-100.0); Mean Platelet Volume 7.9; Monocytes # (A) 0.5 k/uL (0-1.0); Monocytes % (A) 7 %; Neutrophils # (A) 4.5 k/uL (1.3-7.7); Neutrophils % (A) 72 %; Platelet Count 205 k/uL (150-450); RBC 3.81 m/uL (3.80-5.40); RDW 17.7 % (11.5-15.5); WBC 6.2 k/uL (3.8-10.6)
[2018-09-09] MEDS: PANTOPRAZOLE 40 MG TABLET PO SCH (08:48)
[2018-09-09] MEDS: CITALOPRAM HYDROBROMIDE 20 MG TAB PO SCH (08:48)
[2018-09-09] MEDS: DABIGATRAN 150 MG CAP PO SCH ×2 (08:48→20:01)
[2018-09-09] MEDS: AZITHROMYCIN 500 MG TAB PO SCH (08:48)
[2018-09-09] MEDS: guaiFENesin 600 MG TABLET.ER PO SCH ×2 (08:48→20:01)
[2018-09-09 08:49] LABS: ALT 21 U/L (9-52); AST 13 U/L (14-36); Albumin 2.8 g/dL (3.5-5.0); Alkaline Phosphatase 46 U/L (38-126); Anion Gap 4 mmol/L; Blood Urea Nitrogen 9 mg/dL (7-17); Calcium 9.1 mg/dL (8.4-10.2); Carbon Dioxide 28 mmol/L (22-30); Chloride 105 mmol/L (98-107); Glucose 90 mg/dL (74-99); Magnesium 1.9 mg/dL (1.6-2.3); Potassium 4.5 mmol/L (3.5-5.1); Sodium 137 mmol/L (137-145); Total Bilirubin 0.3 mg/dL (0.2-1.3); Total Protein 5.1 g/dL (6.3-8.2)
[2018-09-09 11:39] LABS: Iron Saturation 5.37 (12.00-45.00)
--- NOTE | 2018-09-09 14:04 | P.PN ---
Subjective Progress Note Date: 09/09/18 Principal diagnosis: Glioblastoma Patient seen in follow-up sitting up in chair and no acute complaints. Still no BM. Abdomen is soft Objective - Vital Signs Vital signs: Vital Signs Temp 98.6 F 09/09/18 07:00 Pulse 54 L 09/09/18 07:00 Resp 18 09/09/18 08:00 BP 136/59 09/09/18 07:00 Pulse Ox 94 L 09/09/18 07:00 Intake & Output 09/08/18 09/09/18 09/09/18 18:59 06:59 18:59 Intake Total 500 775 240 Output Total 144 700 Balance 356 75 240 Intake: Oral 500 775 240 Output: Urine 700 Straight 700 Post Void Residual 144 Other: # Voids 2 2 # Bowel Movements 0 - Exam no acute distress, awake alert but confused.. HEENT: Normocephalic. Neck is supple. Oral cavity is moist. Necksupple, trachea midline CHEST EXAMINATION: Bibasilar diminished breath sounds and crackles at left basal. No wheezing. CARDIAC: Normal S1, S2 with no gallops. No murmurs ABDOMEN: Soft. Bowel sounds normal. No organomegaly. Extremities: reveal no edema. No clubbing or cyanosis Neurologically awake, alert, oriented x2-3 with No focal deficits noted Skin: No rash or skin lesions. Psychiatric: Cooperative. Musculoskeletal: No joint swelling or deformity. Normal range of motion. Atrophic extremity muscles noted - Labs CBC & Chem 7: 09/09/18 07:39 09/09/18 07:39 Labs: Abnormal Lab Results - Last 24 Hours (Table) 09/08/18 09/09/18 09/09/18 Range/Units 07:24 07:39 07:39 Hgb 10.3 L (11.4-16.0) gm/dL MCHC 30.3 L (31.0-37.0) g/dL RDW 17.7 H (11.5-15.5) % Iron 16 L (50-170) ug/dL Iron Saturation 5.37 L (12.00-45.00) AST 13 L (14-36) U/L Total Protein 5.1 L (6.3-8.2) g/dL Albumin 2.8 L (3.5-5.0) g/dL Microbiology - Last 24 Hours (Table) 09/07/18 14:06 Urine Culture - Preliminary Urine,Catheterized Group D Enterococcus 09/07/18 15:25 Blood Culture - Preliminary Blood No Growth after 24 hours Assessment and Plan Plan: Assessment and Plan 1. Glioblastoma: Current treatment out of [facility] - Recent started low dose Temodar. 2. Community acquired pneumonia: CXR shows L basilar airspace disease. - Patient is afebrile with a mild leukocytosis of 13.4 on admission (resolved on day 2). - Continue IV anx per Primary, Pulm, and ID 3. UTI: Failed outPT Rx with Cipro and Bactrim. 4. Acute metabolic encephalopathy: Likely secondary to chemotherapy in combination with PNA and UTI. - Appears to be improving since admission 5. HX: Hypercoagulability: Continue Pradaxa 150 mg PO BID. 6. Normocytic Anemia - Likely secondary to chemotherapy and Dilutional. - Will check Anemia Work-up. 7. COnstipation: - Add Senna - S - Abdominal FLat PLate 8/ Nausera and VOmting: - Improving Greater than 30 minutes wiuth daughter Thank you for allowing us to participate in the care of your patient Recs and changes today: - Add Faraheme after acute infections resolve as outpatient, stop PO Iron for GI upset constipation - Incentive SPirometer to bedside - Temodar next dose will start when acute illness resolves. - COntinue to work with PT/OT for performance status and safety
[2018-09-09] MEDS ORDERED: SENNOSIDES-DOCUSATE SODIUM 1 EACH TAB PO STA (14:17)
--- NOTE | 2018-09-09 14:39 | P.PN ---
Subjective Progress Note Date: 09/09/18 The patient is a 78 yo F with the PMH of glioblastoma (dx 2017, undergoing therapy at [facility]), HTN, hypothyroid, hx of DVT, who was brought to the hospital w / c/o lethargy and confusion. The patient was receiving treatment for UTI as outpatient but had continued to feel weak while receiving Ciproflxacin and then Bactrim. She then developed nausea with vomiting at which point her daughters brought her to the ED. The patient was found to have basilar airspace disease with leukocytosis along w/ a UA consistent with a UTI. The patient was started on IV Ceftriaxone and Azithromycin PO with which her mentation gradually improved. On 09/09/18, the patient was examined with daughters at the bedside. She continues to be lethargic and falls asleep during conversation. Her daughters note that this is improved from day prior. The patient otherwise denied any active complaints including abdominal pain, dysuria, cough, chest pain, SOB, nausea, vomiting, fever, or chills. Objective - Vital Signs Vital signs: Vital Signs Temp 98.6 F 09/09/18 07:00 Pulse 54 L 09/09/18 07:00 Resp 18 09/09/18 08:00 BP 136/59 09/09/18 07:00 Pulse Ox 94 L 09/09/18 07:00 Intake & Output 09/08/18 09/09/18 09/09/18 18:59 06:59 18:59 Intake Total 500 775 240 Output Total 144 700 Balance 356 75 240 Intake: Oral 500 775 240 Output: Urine 700 Straight 700 Post Void Residual 144 Other: # Voids 2 2 # Bowel Movements 0 - Exam General: Non-toxic, in no acute distress HEENT: NC/AT, anicteric sclerae, moist conjunctiva, no lid-lag, PERRLA, oropharynx clear, no erythema, exudates Cardiovascular: S1/S2 wnl, no murmurs, rubs, or gallops Lungs: Clear to auscultation, normal respiratory effort, no accessory muscle use Abdominal: Soft, nontender, non-distended, no guarding, rebound, or rigidity, normoactive bowel sounds Skin: Warm, dry Extremities: No edema or contractures Psychiatric: Oriented only to person, improved Neuro: CN II-XII grossly intact, no focal motor deficits - Labs CBC & Chem 7: 09/09/18 07:39 09/09/18 07:39 Labs: Abnormal Lab Results - Last 24 Hours (Table) 09/08/18 09/09/18 09/09/18 Range/Units 07:24 07:39 07:39 Hgb 10.3 L (11.4-16.0) gm/dL MCHC 30.3 L (31.0-37.0) g/dL RDW 17.7 H (11.5-15.5) % Iron 16 L (50-170) ug/dL Iron Saturation 5.37 L (12.00-45.00) AST 13 L (14-36) U/L Total Protein 5.1 L (6.3-8.2) g/dL Albumin 2.8 L (3.5-5.0) g/dL Microbiology - Last 24 Hours (Table) 09/07/18 14:06 Urine Culture - Preliminary Urine,Catheterized Group D Enterococcus 09/07/18 15:25 Blood Culture - Preliminary Blood No Growth after 24 hours Assessment and Plan Plan: Community acquired pneumonia - C/w Ceftriaxone and Azithromycin - Leukocytosis resolved - Will f/u blood cultures UTI - C/w Ceftriaxone 1g qd. Will f/u urine cultures Acute metabolic encephalopathy, multifactorial - Likely secondary to malignancy treatment vs UTI vs CAP, improving - Will f/u Urine and blood cultures. Prelim showing Enterococcus Glioblastoma - Follows at [facility] w/ Oncology Hx of DVTs -C/w Pradaxa 150 mg bid Hypothyroid - C/w Synthroid 100 Depression - C/w Celexa DVT//GI - Pradaxa, Protonix Discussed with: Patient's daughters Anticipated discharge date: 09/10/[address]: Home A total of 60 minutes was spent on the care of this complex patient more than 50 % of the time was spent in counseling and care coordination.
[2018-09-10] MEDS: LEVOTHYROXINE 100 MCG TAB PO SCH (06:09)
[2018-09-10 07:39] VITALS: BP 144/77; PULSE 60; RESP 16; TEMP 98
[2018-09-10] MEDS: DOCUSATE 100 MG CAP PO SCH (09:27)
[2018-09-10] MEDS: PANTOPRAZOLE 40 MG TABLET PO SCH (09:27)
[2018-09-10] MEDS: DABIGATRAN 150 MG CAP PO SCH (09:27)
[2018-09-10] MEDS: CITALOPRAM HYDROBROMIDE 20 MG TAB PO SCH (09:27)
[2018-09-10] MEDS: AZITHROMYCIN 500 MG TAB PO SCH (09:27)
[2018-09-10] MEDS: guaiFENesin 600 MG TABLET.ER PO SCH (09:27)
--- NOTE | 2018-09-10 11:20 | P.DS ---
Providers Date of admission: 09/07/18 15:03 Expected date of discharge: 09/10/18 Attending physician: Rhiannon Chew DO Consults: 09/07/18 15:03 Consult Physician Routine Consulting Provider: Cortez Poon Consult Reason/Comments: Oncological care Do you want consulting provider notified?: Yes Primary care physician: Terri Willem [facility] Course: The patient is a 78 yo F with the PMH of glioblastoma (dx 2017, undergoing therapy at [facility]), HTN, hypothyroid, hx of DVT, who was brought to the hospital w / c/o lethargy and confusion. The patient was receiving treatment for UTI as outpatient but had continued to feel weak while receiving Ciproflxacin and then Bactrim. She then developed nausea with vomiting at which point her daughters brought her to the ED. The patient was found to have basilar airspace disease with leukocytosis along w/ a UA consistent with a UTI. The patient was started on IV Ceftriaxone and Azithromycin PO with which her mentation gradually improved. On 09/09/18, the patient was examined with daughters at the bedside. She continued to be lethargic. On 09/10/18, the patient's mentation has significant improved. Urine culture resulted as Enteroccocus susceptible to Penicillin. The patient will thereby be switched to Augmentin and is presently stable and ready for discharge to home with home-health. The patient lives with her daughters who will be taking care of her. Physical Examination General: Awake, alert, in no acute distress HEENT: NC/AT, anicteric sclerae, moist conjunctiva, no lid-lag, PERRLA, oropharynx clear, no erythema, exudates Cardiovascular: S1/S2 wnl, no murmurs, rubs, or gallops Lungs: Clear to auscultation, normal respiratory effort, no accessory muscle use Abdominal: Soft, nontender, non-distended, no guarding, rebound, or rigidity, normoactive bowel sounds Skin: Warm, dry Extremities: No edema or contractures Psychiatric: Alert and oriented to person and place, appropriate affect Neuro: CN II-XI grossly intact, sensation to light touch grossly present throughout, no focal sensory deficits Discharge diagnosis: Community Acquired pneumonia, UTI, Acute metabolic encephalopathy, Glioblastoma, Hx of DVTs, Hypothyroidism, Depresion A total of 60 minutes of time were spent preparing this complex discharge summary. Patient Condition at Discharge: Stable Plan - Discharge Summary New Discharge Prescriptions: New Amoxic-Pot Clav 875-125Mg [Augmentin 875-125] 1 tab PO Q12HR 7 Days #14 tablet Continue Dabigatran [Pradaxa] 150 mg PO BID@729,1999 Citalopram Hydrobromide [CeleXA] 20 mg PO DAILY Levothyroxine Sodium [Synthroid] 100 mcg PO DAILY@06 Acetaminophen Tab [Tylenol] 650 mg PO Q4HR PRN tab PRN Reason: Pain Scale 1 To 5 Pantoprazole Sodium [Protonix] 40 mg PO DAILY Ferrous Sulfate [Feosol] 325 mg PO DAILY Docusate [Colace] 100 mg PO Q2D Ascorbic Acid [Vitamin C] Discontinued Sulfamethox-Tmp 800-160Mg [Bactrim DS 800-160 mg] 1 tab PO BID Discharge Medication List Dabigatran [Pradaxa] 150 mg PO BID@729,199905/13/17 [History] Citalopram Hydrobromide [CeleXA] 20 mg PO DAILY 07/02/17 [History] Levothyroxine Sodium [Synthroid] 100 mcg PO DAILY@0630 07/02/17 [History] Acetaminophen Tab [Tylenol] 650 mg PO Q4HR PRN tab 07/09/17 [Rx] Ascorbic Acid [Vitamin C] 09/07/18 [History] Docusate [Colace] 100 mg PO Q2D 09/07/18 [History] Ferrous Sulfate [Feosol] 325 mg PO DAILY 09/07/18 [History] Pantoprazole Sodium [Protonix] 40 mg PO DAILY 09/07/18 [History] Amoxic-Pot Clav 875-125Mg [Augmentin 875-125] 1 tab PO Q12HR 7 Days #14 tablet 09/10/18 [Rx] Follow up Appointment(s)/Referral(s): Terri Bangura MD [Primary Care Provider] - 09/11/18 3:00 pm Patient Instructions/Handouts: Community Acquired Pneumonia (DC) Activity/Diet/Wound Care/Special Instructions: Cardiac diet. Aspiration precautions. Activity as tolerated, up with assist, fall precautions. Change positions every few hours while awake. Discharge Disposition: HOME WITH HOME HEALTH SERVICES
--- NOTE | 2018-09-10 13:27 | P.PN ---
Subjective Progress Note Date: 09/10/18 Principal diagnosis: Glioblastoma Doing a little better this am, planning for discharge, daughter at bedside. she had a small Bowel movement Objective - Vital Signs Vital signs: Vital Signs Temp 98 F 09/10/18 07:37 Pulse 60 09/10/18 07:48 Resp 16 09/10/18 08:00 BP 144/77 09/10/18 07:37 Pulse Ox 93 L 09/10/18 07:37 Intake & Output 09/09/18 09/10/18 09/10/18 18:59 06:59 18:59 Intake Total 240 650 Output Total 182 Balance 240 468 Intake: Oral 240 650 Output: Post Void Residual 182 Other: Voiding Method Toilet Toilet Toilet Diaper Diaper Diaper # Voids 2 3 # Bowel Movements 1 - Exam no acute distress, awake alert but confused.. HEENT: Normocephalic. Neck is supple. Oral cavity is moist. Necksupple, trachea midline CHEST EXAMINATION: Bibasilar diminished breath sounds and crackles at left basal. No wheezing. CARDIAC: Normal S1, S2 with no gallops. No murmurs ABDOMEN: Soft. Bowel sounds normal. No organomegaly. Extremities: reveal no edema. No clubbing or cyanosis Neurologically awake, alert, oriented x2-3 with No focal deficits noted Skin: No rash or skin lesions. Psychiatric: Cooperative. Musculoskeletal: No joint swelling or deformity. Normal range of motion. Atrophic extremity muscles noted - Labs CBC & Chem 7: 09/09/18 07:39 09/09/18 07:39 Labs: Microbiology - Last 24 Hours (Table) 09/07/18 14:06 Urine Culture - Final Urine,Catheterized Enterococcus faecalis 09/07/18 15:25 Blood Culture - Preliminary Blood No Growth after 48 hours Assessment and Plan Plan: Assessment and Plan 1. Glioblastoma: Current treatment out of [facility] - Recent started low dose Temodar. 2. Community acquired pneumonia: CXR shows L basilar airspace disease. - Patient is afebrile with a mild leukocytosis of 13.4 on admission (resolved on day 2). - Continue IV anx per Primary, Pulm, and ID 3. UTI: Failed outPT Rx with Cipro and Bactrim. 4. Acute metabolic encephalopathy: Likely secondary to chemotherapy in combination with PNA and UTI. - Appears to be improving since admission 5. HX: Hypercoagulability: Continue Pradaxa 150 mg PO BID. 6. Normocytic Anemia - Likely secondary to chemotherapy and Dilutional. - Will check Anemia Work-up. 7. COnstipation: - Add Senna - S - Abdominal FLat PLate 8/ Nausera and VOmting: - Improving Greater than 30 minutes with daughter Thank you for allowing us to participate in the care of your patient Recs and changes today: - Add Faraheme after acute infections resolve as outpatient, stop PO Iron for GI upset constipation - Incentive SPirometer to bedside - Temodar next dose will start when acute illness resolves. - COntinue to work with PT/OT for performance status and safety Follow - up next week as scheduled, will resume temodar after infection clears.
== END 2018-09-10 12:31 | disposition home or self-care (01) | DRG 193 ==
LOC: EC 10:50 → 4MS4W 15:03
PROVIDERS: ADMIT Internal Medicine; ATTEND Internal Medicine
DX: J18.9 Pneumonia, unspecified organism (principal); G92 Toxic encephalopathy; C71.9 Malignant neoplasm of brain, unspecified; N39.0 Urinary tract infection, site not specified; D64.81 Anemia due to antineoplastic chemotherapy; T45.1X5A Adverse effect of antineoplastic and immunosuppressive drugs, initial encounter; E03.9 Hypothyroidism, unspecified; F32.9 Major depressive disorder, single episode, unspecified; F41.9 Anxiety disorder, unspecified; I10 Essential (primary) hypertension; K59.00 Constipation, unspecified; M19.011 Primary osteoarthritis, right shoulder; B95.2 Enterococcus as the cause of diseases classified elsewhere; R11.2 Nausea with vomiting, unspecified; Z87.440 Personal history of urinary (tract) infections; Z86.718 Personal history of other venous thrombosis and embolism; Z79.02 Long term (current) use of antithrombotics/antiplatelets; Z79.899 Other long term (current) drug therapy; Z79.3 Long term (current) use of hormonal contraceptives; Z90.49 Acquired absence of other specified parts of digestive tract
CPT/HCPCS: 36415; 71046; 74019; 80053; 81001; 82150; 82607; 82728; 83540; 83550; 83690; 83735; 85025; 87040; 87077; 87086; 87186; 96361; 96365; 96367; 96375; 99285

== ENCOUNTER 2018-09-11 10:25 | Inpatient (IN) | payer MEDICARE ==
--- NOTE | 2018-09-11 11:28 | ED ---
General Adult HPI - General Chief complaint: Weakness Stated complaint: lethargic Time Seen by Provider: 09/11/18 10:30 Source: patient, family, RN notes reviewed Mode of arrival: wheelchair Limitations: no limitations - History of Present Illness Initial comments: Is a 78-year-old female who presents to the emergency department after having been admitted to the hospital and released yesterday for urinary tract infection. According to the daughter the patient also has a brain tumor which was treated in November with radiation therapy. The daughter also states there was talk with the patient might have a little pneumonia on the x-ray while she was in the hospital. Patient is brought in today because she's just lethargic according to the daughter all she does is sleep and barely responds to her name. Daughter states she does respond accurately in nose everything going on but she is just exhausted and can't seem to do anything. Patient denies any headache patient denies any numbness or weakness. Patient denies any chest pain difficulty breathing shortness of breath. Patient denies any abdominal pain patient denies nausea vomiting diarrhea. Patient denies any recent injury or fall. Patient denies any lightheadedness or dizziness patient states she just is exhausted. - Related Data Home Medications Medication Instructions Recorded Confirmed Dabigatran [Pradaxa] 150 mg PO BID@0705/13/17 09/07/18 Citalopram Hydrobromide [CeleXA] 20 mg PO DAILY 07/02/17 09/07/18 Levothyroxine Sodium [Synthroid] 100 mcg PO DAILY@0630 07/02/17 09/11/18 Ascorbic Acid [Vitamin C] 09/07/18 Docusate [Colace] 100 mg PO Q2D 09/07/18 09/07/18 Ferrous Sulfate [Feosol] 325 mg PO DAILY 09/07/18 09/07/18 Pantoprazole Sodium [Protonix] 40 mg PO DAILY 09/07/18 09/07/18 Previous Rx's Medication Instructions Recorded Acetaminophen Tab [Tylenol] 650 mg PO Q4HR PRN tab 07/09/17 Amoxic-Pot Clav 875-125Mg 1 tab PO Q12HR 7 Days #14 tablet 09/10/18 [Augmentin 875-125] Allergies Allergy/AdvReac Type Severity Reaction Status Date / Time hydromorphone [From Dilaudid] AdvReac Nausea Verified 09/11/18 11:08 Review of Systems ROS Statement: Those systems with pertinent positive or pertinent negative responses have been documented in the HPI. ROS Other: All systems not noted in ROS Statement are negative. Past Medical History Past Medical History: Cancer, Deep Vein Thrombosis (DVT), Hypertension, Thyroid Disorder Additional Past Medical History / Comment(s): treated glioblastoma-last chemo August 2018, DVT behind the knee History of Any Multi-Drug Resistant Organisms: None Reported Past Surgical History: Cholecystectomy, Orthopedic Surgery Additional Past Surgical History / Comment(s): thyroid removed, left ankle, craniotomy, R hip Past Anesthesia/Blood Transfusion Reactions: Postoperative Nausea & Vomiting ( PONV) Past Psychological History: No Psychological Hx Reported Smoking Status: Never smoker Past Alcohol Use History: None Reported Past Drug Use History: None Reported - Past Family History Mother Family Medical History: No Reported History Father Family Medical History: No Reported History General Exam - General Exam Comments Initial Comments: GENERAL: Patient is well-developed and well-nourished. Patient is nontoxic and well- hydrated and is in no acute distress. Patient is very lethargic she is able to answer all questions but she immediately falls back to sleep. ENT: Neck is soft and supple. No significant lymphadenopathy is noted. Oropharynx is clear. Moist mucous membranes. Neck has full range of motion without eliciting any pain. EYES: The sclera were anicteric and conjunctiva were pink and moist. Extraocular movements were intact and pupils were equal round and reactive to light. Eyelids were unremarkable. PULMONARY: Unlabored respirations. Good breath sounds bilaterally. No audible rales rhonchi or wheezing was noted. CARDIOVASCULAR: There is a regular rate and rhythm without any murmurs gallops or rubs. ABDOMEN: Soft and nontender with normal bowel sounds. No palpable organomegaly was noted. There is no palpable pulsatile mass. SKIN: Skin is clear with no lesions or rashes and otherwise unremarkable. NEUROLOGIC: Patient is alert and oriented x3. Cranial nerves II through XII are grossly intact. Motor and sensory are also intact. Normal speech, volume and content. Symmetrical smile. MUSCULOSKELETAL: Normal extremities with adequate strength and full range of motion. LYMPHATICS: No significant lymphadenopathy is noted PSYCHIATRIC: Normal psychiatric evaluation. Limitations: no limitations Course Vital Signs 09/11/18 10:28 Temperature 98.4 F Pulse Rate 56 L Respiratory 18 Rate Blood Pressure 139/66 O2 Sat by Pulse 96 Oximetry Medical Decision Making - Medical Decision Making EKG shows sinus bradycardia 53 bpm WA interval 178 QRSs 132 QT interval is 456 QTC is 427. Patient's EKG shows no ST segment elevation or depression or T wave abnormalities are noted. Computed tomography scan showed a recurrence of the tumor with some small midline shift. There also is an area of possible hemorrhage. I spoke with Dr. Yañez the patient's neurosurgeon and he did not see a reason to transfer the patient is a patient was no longer a surgical candidate. I spoke with Dr. Grimes he agreed to admit the patient admitted the patient wrote admitting orders - Lab Data Result diagrams: 09/11/18 12:18 09/11/18 12:18 Lab Results 09/11/18 09/11/18 09/11/18 Range/Units 12:18 12:18 12:18 WBC 11.7 H (3.8-10.6) k/uL RBC 4.41 (3.80-5.40) m/uL Hgb 11.8 (11.4-16.0) gm/dL Hct 39.1 (34.0-46.0) % MCV 88.7 (80.0-100.0) fL MCH 26.7 (25.0-35.0) pg MCHC 30.1 L (31.0-37.0) g/dL RDW 17.7 H (11.5-15.5) % Plt Count 245 (150-450) k/uL Neutrophils % 81 % Lymphocytes % 10 % Monocytes % 7 % Eosinophils % 1 % Basophils % 0 % Neutrophils # 9.5 H (1.3-7.7) k/uL Lymphocytes # 1.1 (1.0-4.8) k/uL Monocytes # 0.9 (0-1.0) k/uL Eosinophils # 0.1 (0-0.7) k/uL Basophils # 0.0 (0-0.2) k/uL Hypochromasia Moderate Anisocytosis Slight PT (9.0-12.0) sec INR (<1.2) APTT (22.0-30.0) sec Sodium 138 (137-145) mmol/L Potassium 4.5 (3.5-5.1) mmol/L Chloride 102 (98-107) mmol/L Carbon Dioxide 28 (22-30) mmol/L Anion Gap 8 mmol/L BUN 11 (7-17) mg/dL Creatinine 0.66 (0.52-1.04) mg/dL Est GFR (CKD-EPI)AfAm >90 (>60 ml/min/1.73 sqM) Est GFR (CKD-EPI)NonAf 86 (>60 ml/min/1.73 sqM) Glucose 107 H (74-99) mg/dL Plasma Lactic Acid Tony (0.7-2.0) mmol/L Calcium 9.8 (8.4-10.2) mg/dL Total Bilirubin 0.4 (0.2-1.3) mg/dL AST 17 (14-36) U/L ALT 15 (9-52) U/L Alkaline Phosphatase 64 (38-126) U/L Total Creatine Kinase 30 (30-135) U/L CK-MB (CK-2) 0.6 (0.0-2.4) ng/mL CK-MB (CK-2) Rel Index 2.0 Troponin I <0.012 (0.000-0.034) ng/mL Total Protein 6.4 (6.3-8.2) g/dL Albumin 3.5 (3.5-5.0) g/dL 09/11/18 09/11/18 Range/Units 12:18 12:18 WBC (3.8-10.6) k/uL RBC (3.80-5.40) m/uL Hgb (11.4-16.0) gm/dL Hct (34.0-46.0) % MCV (80.0-100.0) fL MCH (25.0-35.0) pg MCHC (31.0-37.0) g/dL RDW (11.5-15.5) % Plt Count (150-450) k/uL Neutrophils % % Lymphocytes % % Monocytes % % Eosinophils % % Basophils % % Neutrophils # (1.3-7.7) k/uL Lymphocytes # (1.0-4.8) k/uL Monocytes # (0-1.0) k/uL Eosinophils # (0-0.7) k/uL Basophils # (0-0.2) k/uL Hypochromasia Anisocytosis PT 10.7 (9.0-12.0) sec INR 1.1 (<1.2) APTT 18.6 L (22.0-30.0) sec Sodium (137-145) mmol/L Potassium (3.5-5.1) mmol/L Chloride (98-107) mmol/L Carbon Dioxide (22-30) mmol/L Anion Gap mmol/L BUN (7-17) mg/dL Creatinine (0.52-1.04) mg/dL Est GFR (CKD-EPI)AfAm (>60 ml/min/1.73 sqM) Est GFR (CKD-EPI)NonAf (>60 ml/min/1.73 sqM) Glucose (74-99) mg/dL Plasma Lactic Acid Tony 0.8 (0.7-2.0) mmol/L Calcium (8.4-10.2) mg/dL Total Bilirubin (0.2-1.3) mg/dL AST (14-36) U/L ALT (9-52) U/L Alkaline Phosphatase (38-126) U/L Total Creatine Kinase (30-135) U/L CK-MB (CK-2) (0.0-2.4) ng/mL CK-MB (CK-2) Rel Index Troponin I (0.000-0.034) ng/mL Total Protein (6.3-8.2) g/dL Albumin (3.5-5.0) g/dL Disposition Clinical Impression: Recurrent brain tumor Disposition: ADMITTED IP TO THIS [facility] Referrals: Terri Bangura MD [Primary Care Provider] - 1-2 days Time of Disposition: 13:53
[2018-09-11] MEDS: SODIUM CHLORIDE 0.9% 500 ML 500 ML IV SCH (11:55)
[2018-09-11 12:25] LABS: Anisocytosis Slight; Basophils % (A) 0 %; Eosinophils # (A) 0.1 k/uL (0-0.7); Eosinophils % (A) 1 %; HCT 39.1 % (34.0-46.0); HGB 11.8 gm/dL (11.4-16.0); Hypochromasia Moderate; Lymphocytes # (A) 1.1 k/uL (1.0-4.8); Lymphocytes % (A) 10 %; MCH 26.7 pg (25.0-35.0); MCHC 30.1 g/dL (31.0-37.0); MCV 88.7 fL (80.0-100.0); Mean Platelet Volume 8.3; Monocytes # (A) 0.9 k/uL (0-1.0); Monocytes % (A) 7 %; Neutrophils # (A) 9.5 k/uL (1.3-7.7); Neutrophils % (A) 81 %; Platelet Count 245 k/uL (150-450); RBC 4.41 m/uL (3.80-5.40); RDW 17.7 % (11.5-15.5); WBC 11.7 k/uL (3.8-10.6)
[2018-09-11 12:37] LABS: ALT 15 U/L (9-52); AST 17 U/L (14-36); Albumin 3.5 g/dL (3.5-5.0); Alkaline Phosphatase 64 U/L (38-126); Anion Gap 8 mmol/L; Blood Urea Nitrogen 11 mg/dL (7-17); Calcium 9.8 mg/dL (8.4-10.2); Carbon Dioxide 28 mmol/L (22-30); Chloride 102 mmol/L (98-107); Glucose 107 mg/dL (74-99); Potassium 4.5 mmol/L (3.5-5.1); Sodium 138 mmol/L (137-145); Total Bilirubin 0.4 mg/dL (0.2-1.3); Total Protein 6.4 g/dL (6.3-8.2)
[2018-09-11 12:48] LABS: INR 1.1 (<1.2); Prothrombin Time 10.7 sec (9.0-12.0)
[2018-09-11 12:49] LABS: Creatine Kinase 30 U/L (30-135)
[2018-09-11 12:52] LABS: Partial Thromboplastin Time 18.6 sec (22.0-30.0)
--- NOTE | 2018-09-11 12:57 | CT ---
EXAMINATION TYPE: CT brain wo con DATE OF EXAM: 09/11/2018 COMPARISON: CT brain 07/02/2017 HISTORY: Lethargic and altered mental status CT DLP: 1646.4 mGycm Automated exposure control for dose reduction was used. FINDINGS: There is been interval development of large amount of white matter low-attenuation in the frontal lob es left greater than right, there is some midline shift, mass effect on the frontal horn of the left lateral ventricle. Suspect there may be an underlying mass in the left frontal lobe. Some postoperati ve changes are again seen status post craniotomy with some encephalomalacia of the left frontal lobe more towards the convexity. At the site of the previous ex vacuo phenomenon of the left lateral ventr icle there is some calcification present but also within the posterior margin there is some high atte nuation present measuring approximately 7 mm x 7 mm x 4 mm which may be related to residual tumor, di fficult to exclude small hemorrhage. IMPRESSION: FINDINGS ARE SUSPICIOUS FOR RECURRENT OR NEW TUMOR, DIFFICULT TO EXCLUDE MINIMAL HEMORRHAGE AT THE JIMENEZ RGICAL SITE DESCRIBED. POSTOP CHANGES. REPORT RELAYED TELEPHONICALLY TO THE REFERRING CLINICIAN AT THE TIME OF INTERPRETATION.
[2018-09-11 13:01] LABS: Creatine Kinase MB 0.6 ng/mL (0.0-2.4); Troponin I <0.012 ng/mL (0.000-0.034)
--- NOTE | 2018-09-11 13:03 | XR ---
EXAMINATION TYPE: XR chest 2V DATE OF EXAM: 09/11/2018 COMPARISON: 09/08/2018 HISTORY: Shortness of breath TECHNIQUE: Frontal and lateral views of the chest are obtained. FINDINGS: Scattered senescent parenchymal changes noted. Hyperinflation compatible with COPD. Heart size is stable. There is pulmonary venous congestion without overt failure at this time. Strand y basilar densities are nonspecific. Mediastinal structures are stable and grossly unremarkable. No evidence for hilar prominence. Degenerative changes dorsal spine. IMPRESSION: 1. Heart size is stable. There is pulmonary venous congestion without overt failure at this time. Str shilpa basilar densities are nonspecific.
[2018-09-11] MEDS ORDERED: SODIUM CHLORIDE 0.9% 1,000 ML IV ONE (13:53)
[2018-09-11 14:41] LABS: Amorphous Sediment,Urine Occasional /hpf; Appearance,Urine Clear (Clear); Bilirubin,Urine Negative (Negative); Blood,Urine Trace (Negative); Color,Urine Light Yellow; Glucose,Urine (UA) Negative (Negative); Ketones,Urine Negative (Negative); Leukocyte Esterase,Urine Trace (Negative); Mucus,Urine Rare /hpf; Nitrite,Urine Negative (Negative); Protein,Urine Negative (Negative); RBC,Urine 8 /hpf (0-5); Specific Gravity,Urine 1.009 (1.001-1.035); Squamous Epithelial Cell,Urine 1 /hpf (0-4); Urobilinogen,Urine <2.0 mg/dL (<2.0); WBC,Urine 11 /hpf (0-5)
--- NOTE | 2018-09-11 16:53 | P.CONS ---
History of Present Illness - Reason for Consult Consult date: 09/11/18 Glioblastoma, ?progression Requesting physician: Rui Arevalo - Chief Complaint Increased Lethargy - History of Present Illness Kristin presented to Dr Bangura with progresive confusion, personality changes, headaches and nausea. MRI of head on 02/08/2017 revealed enhancing posterior L frontal cavity lesion C/W Glioma. She had resection by Dr Yañez at [facility] on 02/19/2017 revealing GBM> recovered well ( Rehab) and is home being helped by multiple family members. She is ambulating with assistance of walker, denies headache, nausea , visual symptoms or confusion. 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 She is a life-time non smoker, ETOH use. The patient was re-evaluated by Dr Gonzales > she was recommended to have External beam Radiation therapy concurrent with Temodar chemotherapy to be followed by 12 months of adjuvant Temodar Chemotherapy. Was seen dy Dr Jaimes and will be simulated for Radiation [facility]. 04/20/17: Feels Ok, tolerating Radiation therapy/Temodar Chemotherapy very well ( slight fatigue). 08/08/18: She was recently evaluated by Dr Gonzales and felt to have progressive GBM > Temodar suggested. The patient had 1 dose of Temodar ( 5 days course) in April 2017 with severe intolerable nausea/vomiting despite Zofran, was hospitalized and no further Temodar provided. - Recently she has been treated and evaluated at [facility]: During todays evaluation three daughters at bedside, she was seen in PCP office last week for increased nausea, mental status changes and diagnosed with recurrent UTI, recently completed CIpro so placed on Bactrim. Her symptoms continued and worsened so she was ever into the hospital for further evaluation. On admission a chest xray revealed pneumonia. Her sensistivity showed sensistive to pcn and was discharge on Augmentin, although at home her daughters state she woke up this morning, increased lethargy, confusion, and not following directions. COuld not get her to take her pills, or drink water, and she slept in chair overnight because she could not get comfortable. She is status post one cycle of temodar (at a decreased adjusted dose due to perfermance status). On representation CT head showed likley recurrent increased mass, although this is non-contrast CT. Her previous imaging has been at [facility], daughters have brought in disc. With her being symptomatic and unknown if related to persistent infection versus progression of her tumor we will initiate steroids, abx have been restarted in ED, and continue to work with therapy at this time. Speaking with Dr. Vargas he would like her to have MRI of the Brain down at [facility] where her previous imaging has been to compare accordingly for progression, consider transfer if performance status is not improved over next 24-48 hours Review of Systems A 14 point review of systems assessed and completed and all negative except HPI Past Medical History Past Medical History: Cancer, Deep Vein Thrombosis (DVT), Hypertension, Pneumonia, Thyroid Disorder Additional Past Medical History / Comment(s): treated glioblastoma-last chemo August 2018, DVT behind the knee, uti, History of Any Multi-Drug Resistant Organisms: None Reported Past Surgical History: Cholecystectomy, Orthopedic Surgery Additional Past Surgical History / Comment(s): thyroid removed, left ankle, craniotomy, R hip Past Anesthesia/Blood Transfusion Reactions: Postoperative Nausea & Vomiting ( PONV) Additional Past Anesthesia/Blood Transfusion Reaction / Comm: never recieved any blood transfusions Smoking Status: Never smoker - Past Family History Mother Family Medical History: Cancer Additional Family Medical History / Comment(s): breast cancer in her 30's. in her 90's few days after bowel sx for bowel obstruction Father Family Medical History: Cancer Additional Family Medical History / Comment(s): lung cancer/smoked Medications and Allergies Home Medications Medication Instructions Recorded Confirmed Type Dabigatran [Pradaxa] 150 mg PO BID@0730,199905/13/17 09/07/18 History Citalopram Hydrobromide [CeleXA] 20 mg PO DAILY 07/02/17 09/07/18 History Levothyroxine Sodium [Synthroid] 100 mcg PO DAILY@0630 07/02/17 09/11/18 History Acetaminophen Tab [Tylenol] 650 mg PO Q4HR PRN tab 07/09/17 09/07/18 Rx Ascorbic Acid [Vitamin C] 09/07/18 History Docusate [Colace] 100 mg PO Q2D 09/07/18 09/07/18 History Ferrous Sulfate [Feosol] 325 mg PO DAILY 09/07/18 09/07/18 History Pantoprazole Sodium [Protonix] 40 mg PO DAILY 09/07/18 09/07/18 History Amoxic-Pot Clav 875-125Mg 1 tab PO Q12HR 7 Days #14 tablet 09/10/18 Rx [Augmentin 875-125] Allergies Allergy/AdvReac Type Severity Reaction Status Date / Time hydromorphone [From Dilaudid] AdvReac Nausea Verified 09/11/18 11:08 Physical Exam Vitals: Vital Signs Temp Pulse Pulse Resp BP BP Pulse Ox 09/11/18 16:02 98.1 F 55 L 15 167/74 95 09/11/18 15:41 98.2 F 85 18 149/75 100 09/11/18 14:19 62 18 150/70 95 09/11/18 10:28 98.4 F 56 L 18 139/66 96 Intake and Output 09/11/18 09/11/18 09/11/18 06:59 14:59 22:59 Other: Weight 71.214 kg no acute distress, awake, lethargic and not consistently following commands but pleasantly confused.. HEENT: Normocephalic. Neck is supple. Oral cavity is moist. Necksupple, trachea midline CHEST EXAMINATION: Bibasilar diminished breath sounds and crackles at left basal. No wheezing. CARDIAC: Normal S1, S2 with no gallops. No murmurs ABDOMEN: Soft. Bowel sounds normal. No organomegaly. Extremities: reveal no edema. No clubbing or cyanosis No lymphadenopathy Skin: No rash or skin lesions. Psychiatric: Cooperative. Musculoskeletal: No joint swelling or deformity. Normal range of motion. Atrophic extremity muscles noted Results CBC & Chem 7: 09/11/18 12:18 09/11/18 12:18 Labs: Abnormal Lab Results - Last 24 Hours (Table) 09/11/18 09/11/18 09/11/18 Range/Units 12:18 12:18 12:18 WBC 11.7 H (3.8-10.6) k/uL MCHC 30.1 L (31.0-37.0) g/dL RDW 17.7 H (11.5-15.5) % Neutrophils # 9.5 H (1.3-7.7) k/uL APTT 18.6 L (22.0-30.0) sec Glucose 107 H (74-99) mg/dL Urine Blood (Negative) Ur Leukocyte Esterase (Negative) Urine RBC (0-5) /hpf Urine WBC (0-5) /hpf Amorphous Sediment (None) /hpf Urine Mucus (None) /hpf 09/11/18 Range/Units 14:15 WBC (3.8-10.6) k/uL MCHC (31.0-37.0) g/dL RDW (11.5-15.5) % Neutrophils # (1.3-7.7) k/uL APTT (22.0-30.0) sec Glucose (74-99) mg/dL Urine Blood Trace H (Negative) Ur Leukocyte Esterase Trace H (Negative) Urine RBC 8 H (0-5) /hpf Urine WBC 11 H (0-5) /hpf Amorphous Sediment Occasional H (None) /hpf Urine Mucus Rare H (None) /hpf Assessment and Plan Plan: 1. Glioblastoma: Current imaging out of [facility] - Recent started low dose Temodar. status post one cycle 2. Community acquired pneumonia: CXR shows L basilar airspace disease. - Improved - Patient is afebrile with a mild leukocytosis of 13.4 on admission (resolved on day 2). 3. UTI: Failed outPT Rx with Cipro and Bactrim. - Sensistivity reviewed, IV Rocephin 4. Acute metabolic encephalopathy:short term improvement and now progressed therefore re-hospitaized - Reviewed CT brain and likely progression of Glio, - Initiate Dex q8 and PPI, discussed with Dr. Vargas - If status not improving consider transfer to [facility] for further imaging MRI brain for progressive disease as previous imaging HF 5. HX: Hypercoagulability DVT: Continue Pradaxa 150 mg PO BID. 6. Normocytic Anemia - Likely secondary to chemotherapy and Dilutional. - Will monitor CBC, stable no intervention needed at this time 7. Chronic Illness Myopathy: COntinue to work with Physical, Occupational and may benefit from speech therapy Addendum: 2130pm In depth conversation with daughter regarding mothers declining status over the past 24 hours, they are aware of plan and agree. - Unclear if hemorrhagic area on CT, she is on Pradaxa for chronic DVT - We will hold this at this time until clarified with MRI with and without contrast - Discussed MRI and Holding PRadaxa with Dr. Thrasher - Blood Pressure with mild elevation, again in the picture of increased pressure and potential area of bleeding likely from mass effect of tumor, discussed with RN and she will contact Primary team to closely monitor BP, defer anti-hypertensives. - Daughter has been updated and agreeable to bette.
[2018-09-11] MEDS ORDERED: DOCUSATE 100 MG CAP PO PRN (16:54)
[2018-09-11] MEDS ORDERED: SENNOSIDES 8.6 MG TAB PO PRN (16:54)
[2018-09-11] MEDS ORDERED: PANTOPRAZOLE 40 MG TABLET PO SCH (17:30)
[2018-09-11] MEDS: DEXAMETHASONE SOD PHOSPHATE 4 MG/ML 1 ML VIAL IV SCH (17:31)
--- NOTE | 2018-09-11 17:33 | P.HPIM ---
History of Present Illness H&P Date: 09/11/18 Chief Complaint: Confusion This is a 78-year-old female with past medical history significant for glioblastoma multiform status post resection with neurosurgery at [facility] in February 2017, status post concurrent chemo and radiation therapy who presented to the emergency room with confusion. Patient was discharged from the hospital just yesterday after being treated for UTI. Her daughter informed me that patient has been very sleepy and confused. She said that her overall condition is not improving. She said this is not her mother who is usually active and able to get up and walking using a walker and usually spends her time reading a book or having a conversation with the family. Patient herself was not able to contribute to the history. She was very lethargic. She was easily arousable but quickly fall asleep. She was having hard time following simple commands. She did not have any obvious neurological deficit. Computed tomography scan was done in the emergency room showed evidence of recurrent tumor in the frontal lobe. Per ER notes neurosurgery was consulted at [facility] over the phone and patient was not a surgical candidate any longer and this why she was not transferred. Consultation for oncology was requested and IV steroid ordered by oncology. Review of Systems Review of system: 14 points review of systems were obtained and were negative except to what were mentioned in the HPI. Past Medical History Past Medical History: Cancer, Deep Vein Thrombosis (DVT), Hypertension, Pneumonia, Thyroid Disorder Additional Past Medical History / Comment(s): treated glioblastoma-last chemo August 2018, DVT behind the knee, uti, History of Any Multi-Drug Resistant Organisms: None Reported Past Surgical History: Cholecystectomy, Orthopedic Surgery Additional Past Surgical History / Comment(s): thyroid removed, left ankle, craniotomy, R hip Past Anesthesia/Blood Transfusion Reactions: Postoperative Nausea & Vomiting ( PONV) Additional Past Anesthesia/Blood Transfusion Reaction / Comment(s): never recieved any blood transfusions Smoking Status: Never smoker - Past Family History Mother Family Medical History: Cancer Additional Family Medical History / Comment(s): breast cancer in her 30's. in her 90's few days after bowel sx for bowel obstruction Father Family Medical History: Cancer Additional Family Medical History / Comment(s): lung cancer/smoked Medications and Allergies Home Medications Medication Instructions Recorded Confirmed Type Dabigatran [Pradaxa] 150 mg PO BID@07,199905/13/17 09/07/18 History Citalopram Hydrobromide [CeleXA] 20 mg PO DAILY 07/02/17 09/07/18 History Levothyroxine Sodium [Synthroid] 100 mcg PO DAILY@0630 07/02/17 09/11/18 History Acetaminophen Tab [Tylenol] 650 mg PO Q4HR PRN tab 07/09/17 09/07/18 Rx Ascorbic Acid [Vitamin C] 09/07/18 History Docusate [Colace] 100 mg PO Q2D 09/07/18 09/07/18 History Ferrous Sulfate [Feosol] 325 mg PO DAILY 09/07/18 09/07/18 History Pantoprazole Sodium [Protonix] 40 mg PO DAILY 09/07/18 09/07/18 History Amoxic-Pot Clav 875-125Mg 1 tab PO Q12HR 7 Days #14 tablet 09/10/18 Rx [Augmentin 875-125] Allergies Allergy/AdvReac Type Severity Reaction Status Date / Time hydromorphone [From Dilaudid] AdvReac Nausea Verified 09/11/18 11:08 Physical Exam Vitals: Vital Signs Temp Pulse Pulse Resp BP BP Pulse Ox 09/11/18 16:02 98.1 F 55 L 15 167/74 95 09/11/18 15:41 98.2 F 85 18 149/75 100 09/11/18 14:19 62 18 150/70 95 09/11/18 10:28 98.4 F 56 L 18 139/66 96 Intake and Output 09/11/18 09/11/18 09/11/18 06:59 14:59 22:59 Other: Weight 71.214 kg General: The patient is awake and alert, in no distress Eye: there is normal conjunctiva bilaterally. Neck: The neck is supple, there is no JVD. Cardiovascular: Normal S1-S2, no S3-S4, no murmurs. Respiratory: Lungs clear to auscultation bilaterally Gastrointestinal: Abdomen is soft, nontender Musculoskeletal: There is no pedal edema. Neurological:. Speech is normal. Skin: Skin is warm and dry Results CBC & Chem 7: 09/11/18 12:18 09/11/18 12:18 Labs: Abnormal Lab Results - Last 24 Hours (Table) 09/11/18 09/11/18 09/11/18 Range/Units 12:18 12:18 12:18 WBC 11.7 H (3.8-10.6) k/uL MCHC 30.1 L (31.0-37.0) g/dL RDW 17.7 H (11.5-15.5) % Neutrophils # 9.5 H (1.3-7.7) k/uL APTT 18.6 L (22.0-30.0) sec Glucose 107 H (74-99) mg/dL Urine Blood (Negative) Ur Leukocyte Esterase (Negative) Urine RBC (0-5) /hpf Urine WBC (0-5) /hpf Amorphous Sediment (None) /hpf Urine Mucus (None) /hpf 09/11/18 Range/Units 14:15 WBC (3.8-10.6) k/uL MCHC (31.0-37.0) g/dL RDW (11.5-15.5) % Neutrophils # (1.3-7.7) k/uL APTT (22.0-30.0) sec Glucose (74-99) mg/dL Urine Blood Trace H (Negative) Ur Leukocyte Esterase Trace H (Negative) Urine RBC 8 H (0-5) /hpf Urine WBC 11 H (0-5) /hpf Amorphous Sediment Occasional H (None) /hpf Urine Mucus Rare H (None) /hpf Thrombosis Risk Factor Assmnt - Choose All That Apply Any of the Below Risk Factors Present?: No Other Risk Factors: No Thrombosis Risk Factor Assessment Level: Very Low Risk Assessment and Plan Assessment: 1. Glioblastoma, now with evidence of recurrent tumor on computed tomography scan of the brain. Oncology consulted. Started on IV Decadron. Consider MRI of the brain for further evaluation. Patient also follow-up with [facility] with neurosurgery. According to ER report her neurosurgeon said that she is not a surgical candidate any longer. 2. Recent UTI, started on IV ceftriaxone. Last culture from last admission reviewed. Organism sensitive to penicillin. Await repeat urine culture. 3. History of chronic DVT, maintained on Peridex twice daily 4. Lethargy and altered mental status. I have high suspicion for CO2 retention and hypercapnic respiratory failure given her clinical presentation. I would obtain an ABG for further evaluation. I discussed this with both her daughters Malissa and Virgen at the bedside. They agree to obtain the ABG. They said that they are agreeable to use BiPAP as needed. 5. CODE STATUS, patient is a full code. This was discussed with her daughter at bedside. Today, I reviewed her medication list and lab work results. Continue current regimen. Repeat lab work in the morning. Continue to monitor clinical status closely. Appreciate oncology recommendations.
[2018-09-11] MEDS ORDERED: DABIGATRAN 150 MG CAP PO SCH (20:00)
[2018-09-11 20:08] LABS: ABG HCO3 25 mmol/L (21-25); ABG Oxygen Saturation 95.8 % (94-97); ABG PCO2 38 mmHg (35-45); ABG PH 7.43 (7.35-7.45); ABG PO2 78 mmHg (83-108); ABG TCO2 27 mmol/L (19-24)
[2018-09-11 20:27] VITALS: PULSE 64; RESP 16; TEMP 98.2
--- NOTE | 2018-09-11 23:08 | P.DS ---
Providers Date of admission: 09/11/18 13:53 Expected date of discharge: 09/11/18 Attending physician: Aidan Rubio MD Consults: 09/11/18 13:53 Consult Physician Urgent Consulting Provider: Cortez Poon Consult Reason/Comments: Recurrent brain tumor Do you want consulting provider notified?: Yes Primary care physician: [facility] Course: Final diagnosis at discharge acute mental status change with suspected recurrent Glioblastoma on the frontal lobe left greater than right , with mass effect some midline shift and mass effect on frontal horn of the left lateral ventricle high attenuation present measuring [id number] mm around the posterior margin of the left lateral ventricle which is suspicious for residual tumor vs small hemorrhage these findings are based on CT of the head done during this admission secondary diagnosis hypothyroidism history of glioblastoma s/p surgery , with residual right sided weakness. ( patient received care at [facility]) depression history of hypertension history of present illness 78-year-old female with history of glioblastoma diagnosed thousand 2016 and underwent treatment at [facility]. Patient was brought him to the hospital today due to worsening mental status. Per the family this has been new development over the past couple weeks, patient was brought in a week ago to the hospital for UTI with failed outpatient therapy she showed some improvement after few days of treatment with IV antibiotics and then was released home couple days ago however she spent a day or 2 at home and then her mental status started to urinating and then where she is spending most of her time in bed and is unusual for her per the family and her mental status has been inconsistent but progressively deteriorating for which the family decided to bring to the hospital. Upon presentation to the emergency department CAT scan of the head was performed with findings mentioned above for which IV Decadron was started and patient was monitored closely with close follow-up on her vital signs and neuro status. After further discussion with the oncology team and the family it was deemed that she would benefit from further care at [facility] to be evaluated by neurosurgery as family wanted to escalate care as needed. With currently having some mass effect due to possible recurrent tumor along with suspected area of high density suspicious for bleeding it was thought that would be more appropriate for her to receive care at a more specialized center and to benefit from neurosurgical evaluation. Patient was on pradaxa home for her history of DVT which has been held during this admission. patient did however showed some improvement in her mental status after starting IV Decadron. On exam vital signs are stable most recent blood pressure is 127/67 with heart rate in the 60s to 70s. Gen. patient making good eye contact alert but seems to be confused at times. Pupils are reactive to light bilaterally round and equal. Neurologic evaluation was inconsistent due to patient sometimes following commands and other times no. However she seems to be following simple commands but at times she would be just staring into the examiner eyes without following any commands or saying any words and other times she would answer with 2 word sentences. She denies any focal sensory deficits when examined, but she does exhibit gross motor deficit on the right side which per the family has been chronic. Cranial nerve exam is unreliable at this point due to patient inconsistent with following commands and interacting with the examiner. Lungs are clear to auscultation bilaterally Cardiovascular normal S1-S2 regular rate and rhythm no murmurs, capillary refill is immediate in the fingers and toes, no peripheral edema Abdomen soft lax no tenderness palpation bowel sounds positive After further discussion with oncology team and with the patient daughter Virgen wanted the patient to be full code and to escalate care as appropriate it was deemed that the patient would benefit from more specialized further care from neurosurgical service at [facility] due to the midline shift effect from possible recurrent tumor and the suspected area of high attenuation as mentioned above the suspicious for possible hemorrhage or due to residual tumor. The transfer process has been initiated at 22:30 on 09/11/2018. patient is being transferred to [facility] via ambulance in stable clinical condition but with guarded prognosis due to above findings. Patient Condition at Discharge: Stable Plan - Discharge Summary Discharge Rx Participant: Yes New Discharge Prescriptions: Continue Citalopram Hydrobromide [CeleXA] 20 mg PO DAILY Levothyroxine Sodium [Synthroid] 100 mcg PO DAILY@0630 Acetaminophen Tab [Tylenol] 650 mg PO Q4HR PRN tab PRN Reason: Pain Scale 1 To 5 Pantoprazole Sodium [Protonix] 40 mg PO DAILY Docusate [Colace] 100 mg PO Q2D Ascorbic Acid [Vitamin C] Discontinued Dabigatran [Pradaxa] 150 mg PO BID@729,1999 Ferrous Sulfate [Feosol] 325 mg PO DAILY Amoxic-Pot Clav 875-125Mg [Augmentin 875-125] 1 tab PO Q12HR 7 Days #14 tablet Discharge Medication List Citalopram Hydrobromide [CeleXA] 20 mg PO DAILY 07/02/17 [History] Levothyroxine Sodium [Synthroid] 100 mcg PO DAILY@0630 07/02/17 [History] Acetaminophen Tab [Tylenol] 650 mg PO Q4HR PRN tab 07/09/17 [Rx] Ascorbic Acid [Vitamin C] 09/07/18 [History] Docusate [Colace] 100 mg PO Q2D 09/07/18 [History] Pantoprazole Sodium [Protonix] 40 mg PO DAILY 09/07/18 [History] Follow up Appointment(s)/Referral(s): Terri Bangura MD [Primary Care Provider] - 1-2 days Activity/Diet/Wound Care/Special Instructions: npo, IV decadron 4mg q8hr Care Plan Goals (MU): transfer to [facility] for neurosurgical evaluation
[2018-09-11 23:30] VITALS: BP 129/60
[2018-09-12] MEDS: DEXAMETHASONE SOD PHOSPHATE 4 MG/ML 1 ML VIAL IV SCH (00:07)
[2018-09-12] MEDS ORDERED: LEVOTHYROXINE 100 MCG TAB PO SCH (06:30)
[2018-09-12] MEDS ORDERED: CITALOPRAM HYDROBROMIDE 20 MG TAB PO SCH (09:00)
== END 2018-09-12 01:09 | disposition short-term general hospital (02) | DRG 54 ==
LOC: EC 10:25 → 3NMEDONC 13:53
PROVIDERS: ADMIT Internal Medicine; ATTEND Internal Medicine
DX: C71.1 Malignant neoplasm of frontal lobe (principal); G93.41 Metabolic encephalopathy; G81.91 Hemiplegia, unspecified affecting right dominant side; E03.9 Hypothyroidism, unspecified; F32.9 Major depressive disorder, single episode, unspecified; I10 Essential (primary) hypertension; M19.011 Primary osteoarthritis, right shoulder; Z98.890 Other specified postprocedural states; Z87.01 Personal history of pneumonia (recurrent); Z86.718 Personal history of other venous thrombosis and embolism; Z92.21 Personal history of antineoplastic chemotherapy; Z90.49 Acquired absence of other specified parts of digestive tract; Z87.440 Personal history of urinary (tract) infections; Z80.3 Family history of malignant neoplasm of breast; Z80.1 Family history of malignant neoplasm of trachea, bronchus and lung; Z79.2 Long term (current) use of antibiotics; Z79.02 Long term (current) use of antithrombotics/antiplatelets; Z79.890 Hormone replacement therapy; Z79.899 Other long term (current) drug therapy; Z88.5 Allergy status to narcotic agent; Z85.841 Personal history of malignant neoplasm of brain
CPT/HCPCS: 36415; 36600; 70450; 71046; 80053; 81001; 82550; 82553; 82805; 83605; 84484; 85025; 85610; 85730; 87040; 87086; 96361; 96365; 99285